=== PATIENT | male | born 1935 ===

== ENCOUNTER 2017-02-09 17:49 | Inpatient (IN) | payer MEDICARE, MEDICAID ==
[2017-02-09] MEDS ORDERED: Albuterol-Ipratrop 3 mg / 0.5 (3 ml) UD IH STA ×2 (18:01→18:03)
[2017-02-09] MEDS ORDERED: Sodium Chloride 0.9% 1,000 ML IV STA (18:03)
--- NOTE | 2017-02-09 18:12 | ED PDOC ---
HPI: SOB/CHF/COPD Time Seen by Provider: 02/09/17 17:54 Chief Complaint (Nursing): Respiratory Distress Additional Complaint(s): 82 y/o male with a past medical history of chronic obstructive pulmonary disease and cystic fibrosis who presents to the emergency department with a complaint of increasing shortness of breath x2 days. Associated with a cough and productive thick sputum. Reports using nebulizer with no improvement. Denies fever. PMD: Dr. Chris Aguirre MD Past Medical History Reviewed: Historical Data, Nursing Documentation, Vital Signs Vital Signs: Last Vital Signs Temp 98.2 F 02/09/17 17:54 Pulse 101 H 02/09/17 17:54 Resp 28 H 02/09/17 17:54 BP 131/86 02/09/17 17:54 Pulse Ox 91 L 02/09/17 18:15 - Medical History PMH: COPD Other PMH: cystic fibrosis - Surgical History Surgical History: No Surg Hx - Family History Family History: States: Unknown Family Hx - Allergies Allergies/Adverse Reactions: Allergies Allergy/AdvReac Type Severity Reaction Status Date / Time No Known Allergies Allergy Verified 02/09/17 17:57 Review of Systems ROS Statement: Except As Marked, All Systems Reviewed And Found Negative Constitutional: Negative for: Fever Respiratory: Positive for: Cough, Shortness of Breath, Sputum (Productive and thick) Physical Exam - Reviewed Nursing Documentation Reviewed: Yes Vital Signs Reviewed: Yes - Physical Exam Appears: Positive for: Non-toxic, No Acute Distress Head Exam: Positive for: ATRAUMATIC, NORMAL INSPECTION, NORMOCEPHALIC Skin: Positive for: Normal Color, Warm, Dry Neck: Positive for: Normal, Supple Cardiovascular/Chest: Positive for: Tachycardia (Regular rhythm). Negative for : Regular Rate, Rhythm, Murmur Respiratory: Positive for: Decreased Breath Sounds (With expiratory wheezing and rhonchi bilaterally), Rhonchi, Wheezing, Respiratory Distress (Mild). Negative for: Normal Breath Sounds, Accessory Muscle Use Gastrointestinal/Abdominal: Positive for: Normal Exam, Soft. Negative for: Tenderness Extremity: Positive for: Normal ROM. Negative for: Pedal Edema, Calf Tenderness Neurologic/Psych: Positive for: Alert, Oriented - Laboratory Results Result Diagrams: 02/09/17 18:06 - ECG O2 Sat by Pulse Oximetry: 91 (RA) Pulse Ox Interpretation: Normal Medical Decision Making Medical Decision Making: Time: 18:01 Initial impression: Shortness of breath Initial plan: --EKG --ABG Shock Panel --COMP Metabolic Panel --Urine DIP --CBC w/ diff --Chest Portable (RAD) --Duoneb 3 ml IH --Duoneb 3 ml IH --Methylprednisolone 125 mg IVP --Sodium Chloride 1,000 IV 100 mls/hr --Vapotherm --Peak Flow Pre/Post TX --Peak Flow Pre/Post TX --Reevaluation Scribe Attestation: Documented by Adela Sullivan, acting as a scribe for Cooper Finley MD. Provider Scribe Attestation: All medical record entries made by the Scribe were at my direction and personally dictated by me. I have reviewed the chart and agree that the record accurately reflects my personal performance of the history, physical exam, medical decision making, and the department course for this patient. I have also personally directed, reviewed, and agree with the discharge instructions and disposition. Disposition - Clinical Impression Clinical Impression: Acute bronchitis with chronic obstructive pulmonary disease (COPD) - Patient ED Disposition Is Patient to be Admitted: Yes - Disposition Disposition Time: 18:35 Condition: FAIR - Pt Status Changed To: Hospital Disposition Of: Inpatient - Admit Certification Admit to Inpatient:: After my assessment, the patient will require hospitalization for at least two midnights. This is because of the severity of symptoms shown, intensity of services needed, and/or the medical risk in this patient being treated as an outpatient. - POA Present On Arrival: None
[2017-02-09 18:29] LABS: BASO # 0.1 K/uL (0.0-0.2); BASO % 0.6 % (0.0-2.0); EOS # 1.8 K/uL (0.0-0.7); EOS % 7.2 % (0.0-4.0); HEMOGLOBIN 10.9 g/dL (12.0-18.0); MEAN CELL VOLUME 86.1 fl (80.0-94.0); MEAN CORPUSCULAR HEMOGLOBIN 27.1 pg (27.0-31.0); MEAN CORPUSCULAR HGB CONC 31.4 g/dL (33.0-37.0); MEAN PLATELET VOLUME 8.3 fl (7.2-11.7); MONO # 1.3 K/uL (0.0-0.8); MONO % 5.1 % (0.0-10.0); NEUT # 21.2 K/uL (1.8-7.0); NEUT % 83.1 % (50.0-75.0); PLATELET COUNT 333 K/uL (130-400); RBC 4.04 Mil/uL (4.40-5.90); RED CELL DISTRIBUTION WIDTH 18.4 % (11.5-14.5); WHITE BLOOD COUNT 25.6 K/uL (4.8-10.8)
[2017-02-09] MEDS ORDERED: Azithromycin 500 MG in Sodium Chloride 0.9% 250 ML IVPB STA (18:33)
[2017-02-09 18:36] LABS: ABG ALLEN TEST YES; ARTERIAL BLOOD GAS HCO3 22.6 mmol/L (21-28); ARTERIAL BLOOD GAS O2 SAT 99.1 % (95-98); ARTERIAL BLOOD GAS PCO2 34 mm/Hg (35-45); ARTERIAL BLOOD GAS PO2 135 mm/Hg (80-100); ARTERIAL BLOOD GAS TCO2 22.1 mmol/L (22-28)
[2017-02-09] MEDS ORDERED: Piperacillin/Tazobact 3.375 GM in Sodium Chloride 0.9% 100 ML IVPB ONE (18:48)
[2017-02-09] MEDS ORDERED: Vancomycin 1 g Inj ONE (18:50)
[2017-02-09 18:53] LABS: ANISOCYTOSIS SLIGHT; BANDS 1 % (0-2); BASOPHIL 1 % (0-2); EOSINOPHIL 7 % (0-7); LARGE PLATELETS PRESENT; LYMPHOCYTE 6 % (20-50); METAMYELOCYTE 1 % (0-0); MONOCYTE 4 % (0-10); NEUTROPHIL 80 % (42-75); PLATELET ESTIMATE NORMAL (NORMAL); POIKILOCYTOSIS SLIGHT; TOTAL CELLS COUNTED 100
[2017-02-09 19:51] LABS: ALB/GLOB RATIO 1.2 (1.0-2.1); ALBUMIN 4.2 g/dL (3.5-5.0); ALT/SGPT 24 U/L (21-72); AST/SGOT 19 U/L (17-59); BLOOD UREA NITROGEN 34 mg/dl (9-20); CALCIUM 9.3 mg/dL (8.4-10.2); GFR AFRICAN-AMERICAN > 60; GFR NON-AFRICAN AMERICAN 53
--- NOTE | 2017-02-09 19:53 | CP.PCM.HP ---
<Saúl Walker - Last Filed: 02/10/17 05:46> History of Present Illness - History of Present Illness History of Present Illness: 82 yo yo, m, PMhx/o COPD, CHF, DM, pulmonary fibrosis, Penis Cancer presents to ER c/o SOB on exertion for the last 7 days associated with wheezing. Patient saw Dr Lord the last Friday. Patient was given refill of his medications and advised to use Duoneb 4 times/day and started on Spiriva. Patient reports dry cough on exertion only and today was able to expectorate brown color flegm. He denies fever, nasal congestion, N/V/D, sick contact, abd pain. Patient does not use O2 permanent at home. Patient has been living in [place] for many years and came to [place] to stay with his family here. PMD: Dr. Chris Lord MD Allergies:NKDA Meds: warfarin 1mg daily, Finasteride 500 mg 1 tab daily, spironolactone 25 mg daily, amiodarone 200 mg daily, diltiazen 180 mg daily, Metformin 500 mg BID, Duoneb 4 times/day, montelukast 10 mg daily, furosemide 20 mg daily, Spiriva PSurgHx: penis cancer 4 years ago. PShx: former smoker 1-2 PPD x 40 years. quit 8 years ago, no rect drugs, ETOH abuse, quit 8 years ago ED Course VS: 02 sat 91, HR: 101 LAbs: 25.6>10.9/34.8<333 gluc 244 BUN/cr 34/1.3 K:6.2 ProBNP 5620 Radiology: CXR: right lower lobe infiltrates Meds: Duoneb 3 ml IH --Duoneb 3 ml IH --Methylprednisolone 125 mg IVP --Sodium Chloride 1,000 IV 100 mls/hr --Vapotherm --Peak Flow Pre/Post TX --Peak Flow Pre/Post TX Present on Admission - Present on Admission Any Indicators Present on Admission: No History of DVT/PE: No History of Uncontrolled Diabetes: No Urinary Catheter: No Review of Systems - EENT Eyes: As Per HPI - Cardiovascular Cardiovascular: As Per HPI - Respiratory Respiratory: As Per HPI Past Patient History - Infectious Disease Hx of Infectious Diseases: None - Past Social History Smoking Status: Former Smoker - CARDIAC Hx Atrial Fibrillation: Yes Hx Congestive Heart Failure: Yes Hx Hypertension: Yes - PULMONARY Hx Asthma: Yes Hx Chronic Obstructive Pulmonary Disease (COPD): Yes Hx Emphysema: Yes - NEUROLOGICAL Hx Vertigo: Yes - ENDOCRINE/METABOLIC Hx Diabetes Mellitus Type 2: Yes - GENITOURINARY/GYNECOLOGICAL Other/Comment: penile cancer - PSYCHIATRIC Hx Substance Use: No - ANESTHESIA Hx Anesthesia: Yes Meds Allergies/Adverse Reactions: Allergies Allergy/AdvReac Type Severity Reaction Status Date / Time No Known Allergies Allergy Verified 02/09/17 17:57 Physical Exam - Constitutional Appears: In Acute Distress Additional comments: Acute distress from SOB - Head Exam Head Exam: ATRAUMATIC, NORMOCEPHALIC - Eye Exam Eye Exam: Normal appearance - Respiratory Exam Respiratory Exam: Decreased Breath Sounds, Rales. absent: Rhonchi, Wheezes Additional comments: B/L decrease breath sounds lung bases, scattered rales B/L - Cardiovascular Exam Cardiovascular Exam: REGULAR RHYTHM, +S1, +S2 - GI/Abdominal Exam GI & Abdominal Exam: Normal Bowel Sounds, Soft. absent: Tenderness - Extremities Exam Extremities exam: Positive for: normal inspection. Negative for: pedal edema - Neurological Exam Neurological exam: Alert, Oriented x3 - Psychiatric Exam Psychiatric exam: Normal Affect - Skin Skin Exam: Intact Results - Vital Signs Recent Vital Signs: Last Vital Signs Temp 98.2 F 02/09/17 17:54 Pulse 101 H 02/09/17 17:54 Resp 28 H 02/09/17 17:54 BP 131/86 02/09/17 17:54 Pulse Ox 91 L 02/09/17 18:36 - Labs Result Diagrams: 02/09/17 18:06 02/09/17 21:43 Labs: Laboratory Results - last 24 hr 02/09/17 18:47 NT-Pro-B Natriuret Pep 5620 H Assessment & Plan - Assessment and Plan (Free Text) Plan: Assessment/Plan 82 yo yo, m, PMhx/o COPD, CHF, DM, pulmonary fibrosis, Penis Cancer presents to ER c/o SOB on exertion for the last 7 days associated with wheezing. 1) Respiratory distress secondary to COPD exacerbation -ABG: on bipap PCO2 34 PO2 135 PH normal -BIPAP -admit telemetry -Duoneb 3 ml Inh Q4h az -Metylprednisone 60 mg IV Q6h az 2) PNA -Ceftriaxone x 1 dose given ER -Azithrromycin x 1 dose given ER -Vanco -Zosyn 3) Acute on CHF -ProBNP 5620 -Furosemide -Spironolactone -Echo 4)DM -Metformin 500 mg BID -Hgba1c 5)DVT prophylaxis SCD <Timothy,Chris A - Last Filed: 02/10/17 06:47> Results - Vital Signs Recent Vital Signs: Last Vital Signs Temp 96.1 F L 02/10/17 05:27 Pulse 108 H 02/10/17 05:27 Resp 18 02/10/17 05:27 BP 103/65 02/10/17 05:27 Pulse Ox 100 02/10/17 05:27 - Labs Result Diagrams: 02/09/17 18:06 02/09/17 21:43 Labs: Laboratory Results - last 24 hr 02/09/17 02/09/17 02/10/17 18:47 21:43 04:13 Sodium 133 Potassium 5.9 H Chloride 104 Carbon Dioxide 20 L Anion Gap 15 BUN 35 H Creatinine 1.3 Est GFR ( Amer) > 60 Est GFR (Non-Af Amer) 53 POC Glucose (mg/dL) 281 H Random Glucose 210 H Calcium 8.8 NT-Pro-B Natriuret Pep 5620 H Attending/Attestation - Attestation I have personally seen and examined this patient.: Yes I have fully participated in the care of the patient.: Yes I have reviewed all pertinent clinical information: Yes
[2017-02-09] MEDS ORDERED: Piperacillin/Tazobact 3.375 gm Inj IVPB ONE (20:24)
[2017-02-09] MEDS ORDERED: Albuterol-Ipratrop 3 mg / 0.5 (3 ml) UD INH PRN (20:41)
[2017-02-09] MEDS ORDERED: Sod Polystyrene Sulf 15 gm/60 ml Oral Susp PO ONE (21:22)
[2017-02-09] MEDS ORDERED: methylPREDNISolone 40 MG in Sodium Chloride 0.9% 50 ML IVPB SCH (22:00)
[2017-02-09] MEDS ORDERED: Sod Polystyrene Sulf 15 gm/60 ml Oral Susp ONE (22:14)
[2017-02-09] MEDS ORDERED: MethylPREDNISolone 40 mg Vial ONE (22:14)
[2017-02-09] MEDS: methylPREDNISolone 60 MG in Sodium Chloride 0.9% 50 ML IVPB SCH (22:16)
[2017-02-09 22:21] LABS: BLOOD UREA NITROGEN 35 mg/dl (9-20); GFR AFRICAN-AMERICAN > 60; GFR NON-AFRICAN AMERICAN 53
[2017-02-09 22:22] LABS: CALCIUM 8.8 mg/dL (8.4-10.2)
[2017-02-09] MEDS: Piperacill/Tazo 3.375gm in Dex 3.375 GM/50 ML BAG IVPB SCH (23:51)
[2017-02-10] MEDS: Piperacill/Tazo 3.375gm in Dex 3.375 GM/50 ML BAG IVPB SCH ×4 (03:56→21:21)
[2017-02-10] MEDS: methylPREDNISolone 60 MG in Sodium Chloride 0.9% 50 ML IVPB SCH ×4 (03:56→21:21)
[2017-02-10 04:24] VITALS: BMI 19.4
[2017-02-10] MEDS: Albuterol-Ipratrop 3 mg / 0.5 (3 ml) UD INH SCH ×5 (05:23→19:49)
[2017-02-10 06:58] LABS: MEAN CELL VOLUME 85.3 fl (80.0-94.0); MEAN CORPUSCULAR HEMOGLOBIN 27.4 pg (27.0-31.0); MEAN CORPUSCULAR HGB CONC 32.1 g/dL (33.0-37.0); RBC 3.66 Mil/uL (4.40-5.90); RED CELL DISTRIBUTION WIDTH 18.6 % (11.5-14.5); WHITE BLOOD COUNT 11.3 K/uL (4.8-10.8)
[2017-02-10 07:18] LABS: ALB/GLOB RATIO 1.1 (1.0-2.1); ALBUMIN 3.5 g/dL (3.5-5.0); ALT/SGPT 28 U/L (21-72); AST/SGOT 20 U/L (17-59); BLOOD UREA NITROGEN 34 mg/dl (9-20); CALCIUM 8.8 mg/dL (8.4-10.2); GFR AFRICAN-AMERICAN > 60; GFR NON-AFRICAN AMERICAN > 60; HDL CHOLESTEROL 35 MG/DL (30-70)
[2017-02-10 07:29] LABS: LDL CHOLESTEROL 76 mg/dL (0-129)
[2017-02-10 07:34] LABS: INR 2.1 (0.9-1.2); PARTIAL THROMBOPLASTIN TIME 40.5 Seconds (25.6-37.1); PROTHROMBIN TIME 24.5 Seconds (9.8-13.1)
--- NOTE | 2017-02-10 07:55 | PQF GENQUE ---
This form is a permanent part of the medical record 02/10/17 Dr. Aguirre, Please clarify the type of atrial fibrillation: Documentation of a history of Atrial Fibrillation. Medications include: Cardizem and Coumadin at home. Clarification of your documentation is requested to better reflect the severity of illness and intensity of treatment of your patient. Indicators present [] Specify: [] [] Specify: [] [] Specify: [] [] Specify: [] Location in the medical record that reflects the above clinical findings: [] Treatment Provided: [] PHYSICIAN'S RESPONSE Please clarify the type of atrial fibrillation: [] Chronic [] Paroxysmal [] Permanent [] Persistent [] Other (please specify type) [] Clinically unable to determine [] Unknown Based on your medical judgment of the clinical indicators outlined above please clarify the following: [] Practitioner response [] If unable to determine, please check the box, sign and date. Present On Admission (POA) Indicator: [] Present at the time of admission [] Not present at the time of admission [] Clinically Undetermined In responding to this query, please exercise your independent professional judgment. The fact that a question is asked does not imply that any particular answer is desired or expected. Thank you for your clarification on this documentation. If you have any questions please call: ext [phone] * Thank you, Irene Garrett RN CDMP [facility]
--- NOTE | 2017-02-10 07:59 | PQF CHF ---
This form is a permanent part of the medical record 02/10/17 Dr. kOeefe, After workup please clarify the acuity and type of CHF under the physician response section or in your progress notes. Echo pending. Documentation of a history of CHF: Medications include: Lasix and Aldactone. Echo pending. Clarification of your documentation is requested to better reflect the severity of illness and intensity of treatment of your patient. Indicators present [x] Diagnosis of CHF and/or history of CHF [x] BNP > 200: results 5620 [] Imaging Finding of Pulmonary Edema /Pleural Effusions [] Fluid/Volume Overload [] Pitting edema [] Ejection Fraction < 40% (Indicative of Systolic Heart Failure) [] Ejection Fraction > 40% (Indicative of Diastolic Heart Failure) [] Dyspnea / Orthopenea / Paroxysmal Nocturnal Dyspnea [] Other: Location in the medical record that reflects the above clinical findings: [] Treatment Provided: [] PHYSICIAN'S RESPONSE Based on your medical judgment of the clinical indicators outlined above, are you treating this patient for a known or suspected: [] Acute CHF [] Systolic [] Diastolic [] Combined [] Chronic CHF [] Systolic [] Diastolic [] Combined [] Acute on Chronic CHF []Systolic [] Diastolic [] Combined [] CHF due hypertension [] Acute systolic []Chronic systolic [] Acute/ chronic systolic [] Other, please indicate: [] [] If Unable to Determine, please check the box, sign and date. Present On Admission (POA) Indicator: [] Present at the time of admission [] Not present at the time of admission [] Clinically Undetermined In responding to this query, please exercise your independent professional judgment. The fact that a question is asked does not imply that any particular answer is desired or expected. Thank you for your clarification on this documentation. If you have any questions please call:[ ] * Thank you, [ ] processing archivist SON
[2017-02-10] MEDS ORDERED: Glucagon Recombinant 1 mg Inj IM PRN (08:54)
[2017-02-10] MEDS ORDERED: Dextrose 50% SYRINGE Inj (50 ml) IV PRN (08:54)
[2017-02-10] MEDS: Tiotropium 18 mcg Cap For Inhalation INH SCH ×3 (09:00→19:24)
[2017-02-10] MEDS ORDERED: diltiaZEM 180 mg/24 Hours CD Cap PO SCH (09:00)
[2017-02-10] MEDS: Pantoprazole 40 mg EC Tab PO SCH (09:28)
--- NOTE | 2017-02-10 10:18 | CP.PCM.CON ---
History of Present Illness - History of Present Illness History of Present Illness: This 82-year-old man with a history of severe COPD due to chronic cigarette use and a history of congestive cardiac failure for more than 10 years was brought to the emergency room because of worsening dyspnea on exertion. At this point the patient is mildly dyspneic even while lying in bed particularly he cannot ambulate from his bed to his bathroom without getting extremely short of breath. The patient has had a coronary angiogram more than 5-6 years back and was told of having an occluded blood vessel. No intervention was carried out. He has been taking an oral anticoagulate because of cardiac arrhythmia and was also given amiodarone for a cardiac arrhythmia. He has been repeatedly hospitalized over last 2 months and the family was told that his blood sugar is abnormal because of medications used during this time. He has a history of chronic alcohol use which he quit more than 4 years back. He has quit smoking more than 8 years back. The patient has had a productive cough with copious purulent expectorate for last week to week and a half. His family also relates a significant weight loss over last 3-4 months. Physical examination shows an elderly man who is obviously dyspneic even at rest in spite of oxygen supplement. His respirator rate was 20 to 22 breaths per minute. His heart rate was 110 bpm and regular. His blood pressure was 114/ 70 mmHg. His jugular venous pressure was elevated up to angle of jaw. There was no pedal or sacral edema. His extremities were warm his nailbeds were pink there was no central or peripheral cyanosis. There was no clubbing. There was no lymphadenopathy. His chest was emphysematous. [place] was not palpable. The first and second heart sounds were normal. There was no S3 gallop. Inspiratory effort was poor and the air exchange was poor. Expiration was prolonged. A few scattered rales are audible at both bases. Abdomen was soft liver and spleen are not palpable. His electrocardiogram showed atrial flutter with 2 to one conduction. There were QS complexes in leads V1, V2 and V3 suggestive of an old anteroseptal wall myocardial infarction. His lab data show a hemoglobin of 10 g with a mild degree of leukocytosis. He had a normocytic normochromic picture. His arterial blood gases on an FiO2 of 40 % showed PCO2 of 34 mmHg with a normal pH of 7.4 indicating mild hyperventilation. His potassium level at admission was 5.9 mEq per liter and following Kayexalate today it is 4.8 mg/L. His GFR was more than 60 mL per minute. His INR was 2.1. His proBNP was 5620 pg per mL. IMPRESSION: Congestive cardiac failure with possible anteroseptal wall myocardial infarction in the past. Atrial flutter with 2 to one conduction. 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 The patient displays presence of atrial flutter in spite of using amiodarone hence it is apparent that this medication is a failure, plus has the potential to cause severe pulmonary toxicity. Hence, I have discontinued it. The patient will undergo an echocardiogram to evaluate his left ventricular systolic function. He is adequately anticoagulated and needs to continue oral anticoagulation. I will discuss the possibility of using novel oral anticoagulants. The patient should undergo spirometry to evaluate for possible restrictive lung disease as well given the fact that he has been exposed to amiodarone for a long time. Past Patient History - Infectious Disease Hx of Infectious Diseases: None - Past Medical History & Family History Past Medical History?: Yes - Past Social History Smoking Status: Former Smoker - CARDIAC Hx Atrial Fibrillation: Yes Hx Congestive Heart Failure: Yes Hx Hypertension: Yes - PULMONARY Hx Asthma: Yes Hx Chronic Obstructive Pulmonary Disease (COPD): Yes Hx Emphysema: Yes - NEUROLOGICAL Hx Vertigo: Yes - HEENT Hx HEENT Problems: No Other/Comment: Dentures - RENAL Hx Chronic Kidney Disease: No - ENDOCRINE/METABOLIC Hx Diabetes Mellitus Type 2: Yes - HEMATOLOGICAL/ONCOLOGICAL Hx Blood Disorders: No Hx AIDS: No Hx Human Immunodeficiency Virus (HIV): No - INTEGUMENTARY Hx Dermatological Problems: No - MUSCULOSKELETAL/RHEUMATOLOGICAL Hx Musculoskeletal Disorders: No Hx Falls: No - GASTROINTESTINAL Hx Gastrointestinal Disorders: No - GENITOURINARY/GYNECOLOGICAL Other/Comment: penile cancer - PSYCHIATRIC Hx Substance Use: No - SURGICAL HISTORY Hx Surgeries: Yes Other/Comment: Penile surg from [place] - ANESTHESIA Hx Anesthesia: Yes Meds Allergies/Adverse Reactions: Allergies Allergy/AdvReac Type Severity Reaction Status Date / Time No Known Allergies Allergy Verified 02/09/17 17:57 - Medications Medications: Current Medications Albuterol/Ipratropium (Duoneb 3 Mg/0.5 Mg (3 Ml) Ud) 3 ml INH RQ4 [facility] Last Admin: 02/10/17 07:48 Dose: 3 ml Dextrose (Dextrose 50% Inj) 0 ml IV STAT PRN; Protocol PRN Reason: Hyglycemia Protocol Dextrose (Glutose 15) 0 gm PO ONCE PRN; Protocol PRN Reason: Hypoglycemia Protocol Finasteride (Proscar) 5 mg PO DAILY [facility] Last Admin: 02/10/17 09:29 Dose: 5 mg Furosemide (Lasix) 40 mg IVP DAILY [facility] Glucagon (Glucagen Diagnostic Kit) 0 mg IM STAT PRN; Protocol PRN Reason: Hypoglycemia Protocol Methylprednisolone 60 mg/ (Sodium Chloride) 50 mls @ 100 mls/hr IVPB Q6 [facility] Stop: 02/10/17 16:29 Last Admin: 02/10/17 09:30 Dose: 100 mls/hr Vancomycin HCl 1 gm/ Sodium (Chloride) 250 mls @ 166.667 mls/hr IVPB Q12 [facility] Last Admin: 02/09/17 23:50 Dose: Not Given Piperacillin Sod/Tazobactam Sod (Zosyn 3.375 Gm Iv Premix) 3.375 gm in 50 mls @ 50 mls/hr IVPB Q6 [facility] Last Admin: 02/10/17 09:30 Dose: 50 mls/hr Insulin Human Regular (Humulin R) 0 units SC ACHS [facility] PRN Reason: Protocol Metformin HCl (Glucophage) 500 mg PO BID [facility] Last Admin: 02/10/17 09:28 Dose: 500 mg Montelukast Sodium (Singulair) 10 mg PO DAILY [facility] Last Admin: 02/10/17 09:29 Dose: 10 mg Pantoprazole Sodium (Protonix Ec Tab) 40 mg PO DAILY [facility] Last Admin: 02/10/17 09:28 Dose: 40 mg Spironolactone (Aldactone) 25 mg PO DAILY [facility] Last Admin: 02/10/17 09:28 Dose: 25 mg Tiotropium [place] (Spiriva) 1,000 mcg INH TID [facility] Warfarin Sodium (Coumadin) 1 mg PO DAILY [facility] PRN Reason: Protocol Results - Vital Signs Recent Vital Signs: Last Vital Signs Temp 97.5 F L 02/10/17 08:00 Pulse 110 H 02/10/17 09:29 Resp 18 02/10/17 08:00 BP 102/63 02/10/17 09:29 Pulse Ox 97 02/10/17 08:00 - Labs Result Diagrams: 02/10/17 06:00 02/10/17 06:00 Labs: Laboratory Results - last 24 hr 02/09/17 02/09/17 02/10/17 18:47 21:43 04:13 WBC RBC Hgb Hct MCV MCH MCHC RDW Plt Count PT INR APTT Sodium 133 Potassium 5.9 H Chloride 104 Carbon Dioxide 20 L Anion Gap 15 BUN 35 H Creatinine 1.3 Est GFR ( Amer) > 60 Est GFR (Non-Af Amer) 53 POC Glucose (mg/dL) 281 H Random Glucose 210 H Calcium 8.8 Total Bilirubin AST ALT Alkaline Phosphatase NT-Pro-B Natriuret Pep 5620 H Total Protein Albumin Globulin Albumin/Globulin Ratio Triglycerides Cholesterol LDL Cholesterol Direct HDL Cholesterol 02/10/17 02/10/17 02/10/17 06:00 06:00 06:00 WBC 11.3 H D RBC 3.66 L Hgb 10.0 L Hct 31.2 L MCV 85.3 MCH 27.4 MCHC 32.1 L RDW 18.6 H Plt Count 260 PT 24.5 H INR 2.1 H APTT 40.5 H Sodium 138 Potassium 4.8 Chloride 105 Carbon Dioxide 22 Anion Gap 16 BUN 34 H Creatinine 1.1 Est GFR ( Amer) > 60 Est GFR (Non-Af Amer) > 60 POC Glucose (mg/dL) Random Glucose 275 H Calcium 8.8 Total Bilirubin 0.6 AST 20 ALT 28 Alkaline Phosphatase 80 NT-Pro-B Natriuret Pep Total Protein 6.6 Albumin 3.5 Globulin 3.1 Albumin/Globulin Ratio 1.1 Triglycerides 62 Cholesterol 137 LDL Cholesterol Direct 76 HDL Cholesterol 35
--- NOTE | 2017-02-10 11:09 | RAD ---
HISTORY: cough COMPARISON: No prior. FINDINGS: LUNGS: No active pulmonary disease. PLEURA: No significant pleural effusion identified, no pneumothorax apparent. CARDIOVASCULAR: Normal. OSSEOUS STRUCTURES: No significant abnormalities. VISUALIZED UPPER ABDOMEN: Normal. OTHER FINDINGS: None. IMPRESSION: Suspected right basilar pneumonia.
[2017-02-10] MEDS: Insulin Regular 100 units/ml SC SCH ×2 (12:22→16:48)
--- NOTE | 2017-02-10 12:52 | CP.PCM.PN ---
<Zhanna Oneil - Last Filed: 02/10/17 18:03> Subjective - Date & Time of Evaluation Date of Evaluation: 02/10/17 Time of Evaluation: 07:15 - Subjective Subjective: Patient seen and examined at bedside. No acute events overnight. Grandaughter at bedside as well. Patient reports he is experiencing increased sputum production, his SOB persist with patient taking breaks to breath after every few words, but has mildly improved. Tolerating PO diet, normal urine and stool output. Denies fevers, chills. Objective - Vital Signs/Intake and Output Vital Signs (last 24 hours): Temp Pulse Resp BP Pulse Ox 98.3 F 113 H 20 112/70 94 L 02/10/17 12:09 02/10/17 12:09 02/10/17 12:09 02/10/17 12:23 02/10/17 12:09 - Medications Medications: Current Medications Albuterol/Ipratropium (Duoneb 3 Mg/0.5 Mg (3 Ml) Ud) 3 ml INH RQ4 [place] Last Admin: 02/10/17 11:15 Dose: 3 ml Dextrose (Dextrose 50% Inj) 0 ml IV STAT PRN; Protocol PRN Reason: Hyglycemia Protocol Dextrose (Glutose 15) 0 gm PO ONCE PRN; Protocol PRN Reason: Hypoglycemia Protocol Finasteride (Proscar) 5 mg PO DAILY [place] Last Admin: 02/10/17 09:29 Dose: 5 mg Furosemide (Lasix) 40 mg IVP DAILY [place] Last Admin: 02/10/17 12:23 Dose: 40 mg Glucagon (Glucagen Diagnostic Kit) 0 mg IM STAT PRN; Protocol PRN Reason: Hypoglycemia Protocol Methylprednisolone 60 mg/ (Sodium Chloride) 50 mls @ 100 mls/hr IVPB Q6 [place] Stop: 02/10/17 16:29 Last Admin: 02/10/17 09:30 Dose: 100 mls/hr Vancomycin HCl 1 gm/ Sodium (Chloride) 250 mls @ 166.667 mls/hr IVPB Q12 [place] Last Admin: 02/10/17 11:37 Dose: 166.667 mls/hr Piperacillin Sod/Tazobactam Sod (Zosyn 3.375 Gm Iv Premix) 3.375 gm in 50 mls @ 50 mls/hr IVPB Q6 [place] Last Admin: 02/10/17 09:30 Dose: 50 mls/hr Insulin Human Regular (Humulin R) 0 units SC ACHS [facility] PRN Reason: Protocol Last Admin: 02/10/17 12:22 Dose: 5 units Metformin HCl (Glucophage) 500 mg PO BID [facility] Last Admin: 02/10/17 09:28 Dose: 500 mg Montelukast Sodium (Singulair) 10 mg PO DAILY [facility] Last Admin: 02/10/17 09:29 Dose: 10 mg Pantoprazole Sodium (Protonix Ec Tab) 40 mg PO DAILY [facility] Last Admin: 02/10/17 09:28 Dose: 40 mg Spironolactone (Aldactone) 25 mg PO DAILY [facility] Last Admin: 02/10/17 09:28 Dose: 25 mg Tiotropium [place] (Spiriva) 1,000 mcg INH TID [facility] Warfarin Sodium (Coumadin) 1 mg PO DAILY [facility] PRN Reason: Protocol Stop: 02/10/17 17:01 - Labs Labs: 02/10/17 06:00 02/10/17 06:00 PT 24.5 Seconds (9.8-13.1) H 02/10/17 06:00 INR 2.1 (0.9-1.2) H 02/10/17 06:00 APTT 40.5 Seconds (25.6-37.1) H 02/10/17 06:00 - Constitutional Appears: Older Than Stated Age, Cachectic, Other (SOB) - Head Exam Head Exam: ATRAUMATIC, NORMOCEPHALIC - Eye Exam Eye Exam: EOMI, PERRL - Neck Exam Neck Exam: Full ROM (JVD) - Respiratory Exam Respiratory Exam: Decreased Breath Sounds, Rales (in bilateral lower lobes ), Respiratory Distress (mild) Additional comments: barrel chest - Cardiovascular Exam Cardiovascular Exam: REGULAR RHYTHM, +S1, +S2 - GI/Abdominal Exam GI & Abdominal Exam: Soft, Normal Bowel Sounds. absent: Distended, Tenderness - Extremities Exam Extremities Exam: Full ROM. absent: Calf Tenderness, Pedal Edema - Back Exam Back Exam: absent: CVA tenderness (L), CVA tenderness (R) - Neurological Exam Neurological Exam: Alert, Awake, CN II-XII Intact, Oriented x3 - Psychiatric Exam Psychiatric exam: Normal Affect, Normal Mood - Skin Skin Exam: Dry, Intact, Warm Assessment and Plan - Assessment and Plan (Free Text) Assessment: 82 yr old M admitted for worsening SOB on exertion x 7days and found to have COPD exacerbation. Patient has PMHx of Atrial Fibrillation, COPD, CHF (type unknown), NIDDM, pulmonary fibrosis, Penile cancer, former Etoh abuse (quit 4 yrs ago), former smoker (30 pack years, quit 8 yrs ago). Patients' SOB persists , has increased sputum production, and is tachycardic. Cardiology and Pulmonology have been consulted and are appreciated. Echocardiogram results pending. Day 2 of IV antibiotics. COPD Exacerbation -acute, symptoms persists: SOB/increased sputum production -Duoneb 3 ml Inh Q6h az -Methylprednisolone 60 mg IV Q6H [place] -continue home meds: Singulair 10mg PO QD, Spiriva 18 mcg INH TID, -Supplemental O2 via nasal cannula to maintain O2 sat between 88-92%, BIPAP PRN for O2 sat < 88% -PFT's tomorrow Community Acquired Pneumonia -acute, leukocytosis 25.6>11.3 with left shift -CXR: suspected right basilar pneumonia - Vancomycin 1gm IV QD and Zosyn 3.375gm IV Q6 (Day 2) -f/u sputum culture Congestive Heart Failure -unknown type, chronic, ProBNP 5620 -continue home meds: Furosemide 40mg IV QD, Spironolactone 25mg PO QD -Cardiology consult appreciated-Dr. Godfrey: d/c Amiodarone (see note) -f/u Echocardiogram Atrial Fibrillation -stable, chronic -EKG showed Atrial flutter with 2:1 conduction -Cardiology consult appreciated-Dr. Godfrey: d/c Amiodarone (see note) -INR therapeutic 2.0 -continue home med Diltiazem 180mg PO QD, Warfarin 1 mg PO QD NIDDM -uncontrolled, chronic, HbA1c 8.4 -continue home med: Metformin 500 mg PO BID -Regular Human Insulin SC ACHS low dose protocol -hypoglycemia protocol -lipid panel triglyc 62/ chol 137/ LDL 76/ HDL 35 -will consider standing insulin dose Anemia of Chronic Disease -stable, chronic, likely secondary to COPD and Heart Failure -H/H: 10.0/31.2 MCV 85.3 RDW 18.6 -f/u Iron, TIBC, transferrin, ferritin, C-reactive protein, ESR DVT/GI prophylaxis -SCD's for now, as patient is anticoagulated with Warfarin -Protonix 40mg PO QD <Sonny Aguirrejoseph García - Last Filed: 02/12/17 06:52> Objective - Vital Signs/Intake and Output Vital Signs (last 24 hours): Temp Pulse Resp BP Pulse Ox 97.6 F 126 H 20 117/75 96 02/12/17 05:00 02/12/17 05:00 02/12/17 05:00 02/12/17 05:00 02/12/17 05:00 Intake and Output: 02/11/17 02/12/17 18:59 06:59 Intake Total 1190 Output Total 1240 Balance -50 - Medications Medications: Current Medications Albuterol/Ipratropium (Duoneb 3 Mg/0.5 Mg (3 Ml) Ud) 3 ml INH RQ6 [place] Last Admin: 02/11/17 19:23 Dose: 3 ml Dextrose (Dextrose 50% Inj) 0 ml IV STAT PRN; Protocol PRN Reason: Hyglycemia Protocol Dextrose (Glutose 15) 0 gm PO ONCE PRN; Protocol PRN Reason: Hypoglycemia Protocol Digoxin (Lanoxin) 0.125 mg PO DAILY [facility] Last Admin: 02/11/17 11:33 Dose: 0.125 mg Finasteride (Proscar) 5 mg PO DAILY [place] Last Admin: 02/11/17 09:39 Dose: 5 mg Furosemide (Lasix) 40 mg IVP DAILY [place] Last Admin: 02/11/17 09:13 Dose: 40 mg Glucagon (Glucagen Diagnostic Kit) 0 mg IM STAT PRN; Protocol PRN Reason: Hypoglycemia Protocol Guaifenesin/Dextromethorphan (Robitussin Dm) 10 ml PO Q6 PRN PRN Reason: Cough Last Admin: 02/11/17 19:43 Dose: 10 ml Vancomycin HCl 1 gm/ Sodium (Chloride) 250 mls @ 166.667 mls/hr IVPB Q12 [place] Last Admin: 02/11/17 21:20 Dose: 166.667 mls/hr Piperacillin Sod/Tazobactam Sod (Zosyn 3.375 Gm Iv Premix) 3.375 gm in 50 mls @ 50 mls/hr IVPB Q6 [place] Last Admin: 02/12/17 04:08 Dose: 50 mls/hr Methylprednisolone 60 mg/ (Sodium Chloride) 50 mls @ 100 mls/hr IVPB Q6 [facility] Last Admin: 02/12/17 03:32 Dose: 100 mls/hr Insulin Detemir (Levemir) 8 units SC HS [facility] Last Admin: 02/11/17 23:10 Dose: 8 units Insulin Human Regular (Humulin R) 0 units SC TIDAC [facility] PRN Reason: Protocol Last Admin: 02/11/17 16:28 Dose: 2 units Metformin HCl (Glucophage) 500 mg PO BID [facility] Last Admin: 02/11/17 16:26 Dose: 500 mg Montelukast Sodium (Singulair) 10 mg PO DAILY [facility] Last Admin: 02/11/17 09:12 Dose: 10 mg Pantoprazole Sodium (Protonix Ec Tab) 40 mg PO DAILY [facility] Last Admin: 02/11/17 09:12 Dose: 40 mg Spironolactone (Aldactone) 25 mg PO DAILY [facility] Last Admin: 02/11/17 09:12 Dose: 25 mg Tiotropium [place] (Spiriva) 18 mcg INH TID [facility] Last Admin: 02/11/17 16:26 Dose: 18 mcg - Labs Labs: 02/10/17 06:00 02/10/17 06:00 PT 29.4 Seconds (9.8-13.1) H 02/11/17 09:10 INR 2.6 (0.9-1.2) H D 02/11/17 09:10 APTT 40.5 Seconds (25.6-37.1) H 02/10/17 06:00 Attending/Attestation - Attestation I have personally seen and examined this patient.: Yes I have fully participated in the care of the patient.: Yes I have reviewed all pertinent clinical information, including history, physical exam and plan: Yes
[2017-02-10] MEDS ORDERED: Sodium Chloride 3% for Inhalation 4 ML VIAL.NEB IH PRN (19:32)
--- NOTE | 2017-02-10 19:34 | CARD ---
APPROVED REPORT EXAM: Two-dimensional and M-mode echocardiogram with Doppler and color Doppler. Other Information Quality : GoodRhythm : Tachycardia INDICATION Congestive Heart Failure 2D DIMENSIONS IVSd0.68 (0.7-1.1cm)LVDd5.38 (3.9-5.9cm) LVOT Diameter1.89 (1.8-2.4cm)PWd0.92 (0.7-1.1cm) IVSs0.82 (0.8-1.2cm)LVDs4.69 (2.5-4.0cm) FS (%) 12.7 %PWs0.89 (0.8-1.2cm) M-Mode DIMENSIONS Left Atrium (MM)3.64 (2.5-4.0cm)IVSd0.40 (0.7-1.1cm) Aortic Root3.04 (2.2-3.7cm)LVDd7.97 (4.0-5.6cm) PWd0.96 (0.7-1.1cm)IVSs0.76 cm FS (%) 15 %LVDs6.75 (2.0-3.8cm) PWs0.76 cm Mitral Valve E/A ratio0.0 TDI E/Lateral E'0.0E/Medial E'0.0 Tricuspid Valve TR Peak [id number] [id number] Peak Gr.43mmHg [id number] LEFT VENTRICLE The Left Ventricle is borderline dilated. There is normal left ventricular wall thickness. The systolic function is severely impaired. The Ejection Fraction is 20-25%. Septal akinesis Transmitral Doppler flow pattern is Grade I-abnormal relaxation pattern. RIGHT VENTRICLE The right ventricle is normal size. There is normal right ventricular wall thickness. Systolic function is mildly reduced. ATRIA The left atrium is mildly dilated. The right atrium is mildly dilated. AORTIC VALVE The aortic valve is not well visualized. No aortic regurgitation is present. There is no aortic valvular stenosis. MITRAL VALVE The mitral valve is mildly thickened. There is no mitral valve stenosis. Mitral regurgitation is moderate to severe. TRICUSPID VALVE The tricuspid valve is normal in structure There is moderate tricuspid regurgitation. There is moderate pulmonary hypertension. PULMONIC VALVE The pulmonary valve is normal in structure and function. There is no pulmonic valvular regurgitation. GREAT VESSELS The aortic root is normal in size. The IVC collapses <50% with inspiration. PERICARDIAL EFFUSION The pericardium appears normal. <Conclusion> The Left Ventricle is borderline dilated. There is normal left ventricular wall thickness. The systolic function is severely impaired. The Ejection Fraction is 20-25%. Septal akinesis Transmitral Doppler flow pattern is Grade I-abnormal relaxation pattern. Mitral regurgitation is moderate to severe. There is moderate tricuspid regurgitation. There is moderate pulmonary hypertension.
--- NOTE | 2017-02-10 23:35 | CARD ---
APPROVED REPORT EKG Measurement Heart [id number] ID [id number] <Conclusion> Consider atrial tachycardia with 2:1 conduction Anteroseptal infarct, age undetermined Marked ST abnormality, possible inferior subendocardial injury Abnormal ECG
[2017-02-11] MEDS: Insulin Regular 100 units/ml SC SCH ×4 (00:28→16:28)
[2017-02-11 01:12] LABS: SQUAMOUS EPITHIAL < 1 /hpf (0-5); URINE BACTERIA RARE (<OCC); URINE BILIRUBIN NEGATIVE (NEGATIVE); URINE BLOOD SMALL (NEGATIVE); URINE CLARITY SLIGHTY-CLOUDY (Clear); URINE COLOR YELLOW (YELLOW); URINE GLUCOSE (UA) >=500 mg/dL (Normal); URINE HYALINE CAST 0-2 /hpf (0-2); URINE LEUKOCYTE ESTERASE MOD Leu/uL (Negative); URINE NITRATE NEGATIVE (NEGATIVE); URINE PROTEIN NEGATIVE (NEGATIVE); URINE UROBILINOGEN 0.2-1.0 mg/dL (0.2-1.0)
[2017-02-11] MEDS: Albuterol-Ipratrop 3 mg / 0.5 (3 ml) UD INH SCH ×4 (01:16→19:23)
[2017-02-11] MEDS: methylPREDNISolone 60 MG in Sodium Chloride 0.9% 50 ML IVPB SCH ×4 (03:56→23:09)
[2017-02-11] MEDS: Piperacill/Tazo 3.375gm in Dex 3.375 GM/50 ML BAG IVPB SCH ×3 (03:57→16:27)
[2017-02-11 07:22] LABS: IRON 17 ug/dL (49-181)
[2017-02-11 07:32] LABS: % IRON SATURATION 7 % (20-55); TOTAL IRON BINDING CAPACITY 235 ug/dL (250-450)
--- NOTE | 2017-02-11 08:59 | CP.PCM.PN ---
Subjective - Date & Time of Evaluation Date of Evaluation: 02/11/17 Time of Evaluation: 09:45 - Subjective Subjective: Diuresed well Breathes a little better Mild dyspnoea at rest continues Resp rate 20-22 BPM A Flutter with variable A:V conduction with HR 110 BPM BP 100/70 mm Hg JVP still elevated Echo images reviewed Severe LV dysfunction with severe MR Severe Pulm hypertension Labs noted Daily INR ordered CPM to monitor BUN/ Creatinin and electro lytes Discussed with residents Objective - Vital Signs/Intake and Output Vital Signs (last 24 hours): Temp Pulse Resp BP Pulse Ox 97.6 F 119 H 20 99/63 L 96 02/11/17 08:29 02/11/17 08:29 02/11/17 08:29 02/11/17 08:29 02/11/17 08:29 - Medications Medications: Current Medications Albuterol/Ipratropium (Duoneb 3 Mg/0.5 Mg (3 Ml) Ud) 3 ml INH RQ6 [facility] Last Admin: 02/11/17 07:55 Dose: 3 ml Dextrose (Dextrose 50% Inj) 0 ml IV STAT PRN; Protocol PRN Reason: Hyglycemia Protocol Dextrose (Glutose 15) 0 gm PO ONCE PRN; Protocol PRN Reason: Hypoglycemia Protocol Digoxin (Lanoxin) 0.125 mg PO DAILY [facility] Finasteride (Proscar) 5 mg PO DAILY [facility] Last Admin: 02/10/17 09:29 Dose: 5 mg Furosemide (Lasix) 40 mg IVP DAILY [facility] Last Admin: 02/10/17 12:23 Dose: 40 mg Glucagon (Glucagen Diagnostic Kit) 0 mg IM STAT PRN; Protocol PRN Reason: Hypoglycemia Protocol Vancomycin HCl 1 gm/ Sodium (Chloride) 250 mls @ 166.667 mls/hr IVPB Q12 [facility] Last Admin: 02/10/17 21:22 Dose: 166.667 mls/hr Piperacillin Sod/Tazobactam Sod (Zosyn 3.375 Gm Iv Premix) 3.375 gm in 50 mls @ 50 mls/hr IVPB Q6 [facility] Last Admin: 02/11/17 03:57 Dose: 50 mls/hr Methylprednisolone 60 mg/ (Sodium Chloride) 50 mls @ 100 mls/hr IVPB Q6 [facility] Last Admin: 02/11/17 03:56 Dose: 100 mls/hr Insulin Human Regular (Humulin R) 0 units SC ACHS [facility] PRN Reason: Protocol Last Admin: 02/11/17 06:30 Dose: 5 units Metformin HCl (Glucophage) 500 mg PO BID [facility] Last Admin: 02/10/17 16:47 Dose: 500 mg Montelukast Sodium (Singulair) 10 mg PO DAILY [facility] Last Admin: 02/10/17 09:29 Dose: 10 mg Pantoprazole Sodium (Protonix Ec Tab) 40 mg PO DAILY [facility] Last Admin: 02/10/17 09:28 Dose: 40 mg Spironolactone (Aldactone) 25 mg PO DAILY [facility] Last Admin: 02/10/17 09:28 Dose: 25 mg Tiotropium [place] (Spiriva) 18 mcg INH TID [facility] Last Admin: 02/10/17 19:24 Dose: 18 mcg Warfarin Sodium (Coumadin) 1 mg PO DAILY [facility] PRN Reason: Protocol Stop: 02/11/17 09:01 - Labs Labs: 02/10/17 06:00 02/10/17 06:00 PT 24.5 Seconds (9.8-13.1) H 02/10/17 06:00 INR 2.1 (0.9-1.2) H 02/10/17 06:00 APTT 40.5 Seconds (25.6-37.1) H 02/10/17 06:00
[2017-02-11] MEDS ORDERED: diltiaZEM 180 mg/24 Hours CD Cap PO SCH (09:00)
[2017-02-11] MEDS: Tiotropium 18 mcg Cap For Inhalation INH SCH ×3 (09:12→16:26)
[2017-02-11] MEDS: Pantoprazole 40 mg EC Tab PO SCH (09:12)
--- NOTE | 2017-02-11 09:39 | CP.PCM.CON ---
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 HE APPEARS TO HAVE IMPROVED FOLLOWING DIURESES. 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 Past Patient History - Infectious Disease Hx of Infectious Diseases: None - Past Medical History & Family History Past Medical History?: Yes - Past Social History Smoking Status: Former Smoker - CARDIAC Hx Atrial Fibrillation: Yes Hx Congestive Heart Failure: Yes Hx Hypertension: Yes - PULMONARY Hx Asthma: Yes Hx Chronic Obstructive Pulmonary Disease (COPD): Yes Hx Emphysema: Yes - NEUROLOGICAL Hx Vertigo: Yes - HEENT Hx HEENT Problems: No Other/Comment: Dentures - RENAL Hx Chronic Kidney Disease: No - ENDOCRINE/METABOLIC Hx Diabetes Mellitus Type 2: Yes - HEMATOLOGICAL/ONCOLOGICAL Hx Blood Disorders: No Hx AIDS: No Hx Human Immunodeficiency Virus (HIV): No - INTEGUMENTARY Hx Dermatological Problems: No - MUSCULOSKELETAL/RHEUMATOLOGICAL Hx Musculoskeletal Disorders: No Hx Falls: No - GASTROINTESTINAL Hx Gastrointestinal Disorders: No - GENITOURINARY/GYNECOLOGICAL Other/Comment: penile cancer - PSYCHIATRIC Hx Substance Use: No - SURGICAL HISTORY Hx Surgeries: Yes Other/Comment: Penile surg from [place] - ANESTHESIA Hx Anesthesia: Yes Meds Allergies/Adverse Reactions: Allergies Allergy/AdvReac Type Severity Reaction Status Date / Time No Known Allergies Allergy Verified 02/09/17 17:57 - Medications Medications: Current Medications Albuterol/Ipratropium (Duoneb 3 Mg/0.5 Mg (3 Ml) Ud) 3 ml INH RQ6 [facility] Last Admin: 02/11/17 07:55 Dose: 3 ml Dextrose (Dextrose 50% Inj) 0 ml IV STAT PRN; Protocol PRN Reason: Hyglycemia Protocol Dextrose (Glutose 15) 0 gm PO ONCE PRN; Protocol PRN Reason: Hypoglycemia Protocol Digoxin (Lanoxin) 0.125 mg PO DAILY [facility] Finasteride (Proscar) 5 mg PO DAILY [facility] Last Admin: 02/10/17 09:29 Dose: 5 mg Furosemide (Lasix) 40 mg IVP DAILY [facility] Last Admin: 02/11/17 09:13 Dose: 40 mg Glucagon (Glucagen Diagnostic Kit) 0 mg IM STAT PRN; Protocol PRN Reason: Hypoglycemia Protocol Vancomycin HCl 1 gm/ Sodium (Chloride) 250 mls @ 166.667 mls/hr IVPB Q12 [facility] Last Admin: 02/10/17 21:22 Dose: 166.667 mls/hr Piperacillin Sod/Tazobactam Sod (Zosyn 3.375 Gm Iv Premix) 3.375 gm in 50 mls @ 50 mls/hr IVPB Q6 [facility] Last Admin: 02/11/17 03:57 Dose: 50 mls/hr Methylprednisolone 60 mg/ (Sodium Chloride) 50 mls @ 100 mls/hr IVPB Q6 [facility] Last Admin: 02/11/17 09:14 Dose: 100 mls/hr Insulin Human Regular (Humulin R) 0 units SC ACHS [facility] PRN Reason: Protocol Last Admin: 02/11/17 06:30 Dose: 5 units Metformin HCl (Glucophage) 500 mg PO BID [facility] Last Admin: 02/11/17 09:13 Dose: 500 mg Montelukast Sodium (Singulair) 10 mg PO DAILY [facility] Last Admin: 02/11/17 09:12 Dose: 10 mg Pantoprazole Sodium (Protonix Ec Tab) 40 mg PO DAILY [facility] Last Admin: 02/11/17 09:12 Dose: 40 mg Spironolactone (Aldactone) 25 mg PO DAILY [facility] Last Admin: 02/11/17 09:12 Dose: 25 mg Tiotropium [place] (Spiriva) 18 mcg INH TID [facility] Last Admin: 02/11/17 09:12 Dose: 18 mcg Physical Exam - Constitutional Appears: Chronically Ill - Head Exam Head Exam: ATRAUMATIC, NORMAL INSPECTION, NORMOCEPHALIC - Eye Exam Eye Exam: EOMI, Normal appearance, PERRL Pupil Exam: NORMAL ACCOMODATION, PERRL - ENT Exam ENT Exam: Mucous Membranes Moist, Normal Exam - Neck Exam Neck exam: Positive for: Normal Inspection - Respiratory Exam Respiratory Exam: Decreased Breath Sounds, Prolonged Expiratory Phase, Rales, NORMAL BREATHING PATTERN - Cardiovascular Exam Cardiovascular Exam: Tachycardia - GI/Abdominal Exam GI & Abdominal Exam: Normal Bowel Sounds, Soft. absent: Tenderness - Rectal Exam Rectal Exam: NORMAL INSPECTION - Extremities Exam Extremities exam: Positive for: pedal edema - Back Exam Back exam: NORMAL INSPECTION - Neurological Exam Neurological exam: Alert, CN II-XII Intact, Oriented x3, Reflexes Normal - Psychiatric Exam Psychiatric exam: Normal Affect, Normal Mood - Skin Skin Exam: Dry, Intact, Normal Color, Warm Results - Vital Signs Recent Vital Signs: Last Vital Signs Temp 97.6 F 02/11/17 08:29 Pulse 119 H 02/11/17 08:29 Resp 20 02/11/17 08:29 BP 126/85 02/11/17 09:13 Pulse Ox 96 02/11/17 08:29 - Labs Result Diagrams: 02/10/17 06:00 02/10/17 06:00 Labs: Laboratory Results - last 24 hr 02/10/17 02/10/17 02/10/17 06:00 11:27 16:08 ESR POC Glucose (mg/dL) 368 H 263 H Hemoglobin A1c 8.4 H Iron TIBC % Saturation Ferritin Urine Color Urine Clarity Urine pH Ur Specific [place] Urine Protein Urine Glucose (UA) Urine Ketones Urine Blood Urine Nitrate Urine Bilirubin Urine Urobilinogen Ur Leukocyte Esterase Urine RBC (Auto) Urine Microscopic WBC Ur Squamous Epith Cells Urine Bacteria Hyaline Casts Urine Yeast (Budding) 02/10/17 02/10/17 02/11/17 19:11 21:42 05:00 ESR 67 H POC Glucose (mg/dL) 297 H Hemoglobin A1c Iron TIBC % Saturation Ferritin Urine Color Yellow Urine Clarity Slighty-cloudy Urine pH 5.0 Ur Specific [place] 1.009 Urine Protein Negative Urine Glucose (UA) >=500 Urine Ketones Negative Urine Blood Small Urine Nitrate Negative Urine Bilirubin Negative Urine Urobilinogen 0.2-1.0 Ur Leukocyte Esterase Mod Urine RBC (Auto) 7 H Urine Microscopic WBC 82 H Ur Squamous Epith Cells < 1 Urine Bacteria Rare Hyaline Casts 0-2 Urine Yeast (Budding) Occ H 02/11/17 02/11/17 02/11/17 05:00 05:00 05:59 ESR POC Glucose (mg/dL) 383 H Hemoglobin A1c Iron 17 L TIBC 235 L % Saturation 7 L Ferritin 97.5 Urine Color Urine Clarity Urine pH Ur Specific [place] Urine Protein Urine Glucose (UA) Urine Ketones Urine Blood Urine Nitrate Urine Bilirubin Urine Urobilinogen Ur Leukocyte Esterase Urine RBC (Auto) Urine Microscopic WBC Ur Squamous Epith Cells Urine Bacteria Hyaline Casts Urine Yeast (Budding) 02/11/17 06:47 ESR POC Glucose (mg/dL) 386 H Hemoglobin A1c Iron TIBC % Saturation Ferritin Urine Color Urine Clarity Urine pH Ur Specific [place] Urine Protein Urine Glucose (UA) Urine Ketones Urine Blood Urine Nitrate Urine Bilirubin Urine Urobilinogen Ur Leukocyte Esterase Urine RBC (Auto) Urine Microscopic WBC Ur Squamous Epith Cells Urine Bacteria Hyaline Casts Urine Yeast (Budding) Assessment & Plan - Assessment and Plan (Free Text) Assessment: CHF ARRYTHMIAS PULMONARY FIBROSIS SUPERIMPOSED PNEUMONIA COPD EXAC Plan: AGREE WITH CARDIAC EVAL AND PRESENT RX 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
--- NOTE | 2017-02-11 09:41 | CP.PCM.PN ---
Addendum entered and electronically signed by Zhanna Oneil MD 02/11/17 16 :49: Sepsis was ruled out. Original Note: <Zhanna Oneil - Last Filed: 02/11/17 14:50> Subjective - Date & Time of Evaluation Date of Evaluation: 02/11/17 Time of Evaluation: 07:10 - Subjective Subjective: Patient seen and examined at bedside. Laying in bed, dyspnea and increased sputum production persists but has improved. Reports normal urine output, tolerating PO diet. Denies chest pain, nausea, vomiting, palpitations or headaches. Objective - Vital Signs/Intake and Output Vital Signs (last 24 hours): Temp Pulse Resp BP Pulse Ox 97.6 F 119 H 20 126/85 96 02/11/17 08:29 02/11/17 08:29 02/11/17 08:29 02/11/17 09:13 02/11/17 08:29 - Medications Medications: Current Medications Albuterol/Ipratropium (Duoneb 3 Mg/0.5 Mg (3 Ml) Ud) 3 ml INH RQ6 [place] Last Admin: 02/11/17 07:55 Dose: 3 ml Dextrose (Dextrose 50% Inj) 0 ml IV STAT PRN; Protocol PRN Reason: Hyglycemia Protocol Dextrose (Glutose 15) 0 gm PO ONCE PRN; Protocol PRN Reason: Hypoglycemia Protocol Digoxin (Lanoxin) 0.125 mg PO DAILY [place] Finasteride (Proscar) 5 mg PO DAILY [place] Last Admin: 02/11/17 09:39 Dose: 5 mg Furosemide (Lasix) 40 mg IVP DAILY [place] Last Admin: 02/11/17 09:13 Dose: 40 mg Glucagon (Glucagen Diagnostic Kit) 0 mg IM STAT PRN; Protocol PRN Reason: Hypoglycemia Protocol Vancomycin HCl 1 gm/ Sodium (Chloride) 250 mls @ 166.667 mls/hr IVPB Q12 [place] Last Admin: 02/11/17 09:40 Dose: 166.667 mls/hr Piperacillin Sod/Tazobactam Sod (Zosyn 3.375 Gm Iv Premix) 3.375 gm in 50 mls @ 50 mls/hr IVPB Q6 [place] Last Admin: 02/11/17 03:57 Dose: 50 mls/hr Methylprednisolone 60 mg/ (Sodium Chloride) 50 mls @ 100 mls/hr IVPB Q6 [place] Last Admin: 02/11/17 09:14 Dose: 100 mls/hr Insulin Human Regular (Humulin R) 0 units SC ACHS [facility] PRN Reason: Protocol Last Admin: 02/11/17 06:30 Dose: 5 units Metformin HCl (Glucophage) 500 mg PO BID [facility] Last Admin: 02/11/17 09:13 Dose: 500 mg Montelukast Sodium (Singulair) 10 mg PO DAILY [facility] Last Admin: 02/11/17 09:12 Dose: 10 mg Pantoprazole Sodium (Protonix Ec Tab) 40 mg PO DAILY [facility] Last Admin: 02/11/17 09:12 Dose: 40 mg Spironolactone (Aldactone) 25 mg PO DAILY [facility] Last Admin: 02/11/17 09:12 Dose: 25 mg Tiotropium [place] (Spiriva) 18 mcg INH TID [facility] Last Admin: 02/11/17 09:12 Dose: 18 mcg - Labs Labs: 02/10/17 06:00 02/10/17 06:00 PT 24.5 Seconds (9.8-13.1) H 02/10/17 06:00 INR 2.1 (0.9-1.2) H 02/10/17 06:00 APTT 40.5 Seconds (25.6-37.1) H 02/10/17 06:00 - Constitutional Appears: Older Than Stated Age, Other (dyspneic) - Head Exam Head Exam: ATRAUMATIC, NORMOCEPHALIC - Eye Exam Eye Exam: EOMI, PERRL - ENT Exam ENT Exam: Mucous Membranes Moist - Neck Exam Neck Exam: Full ROM. absent: Lymphadenopathy - Respiratory Exam Respiratory Exam: Decreased Breath Sounds (in bilateral lower lobes), Respiratory Distress (mild) Additional comments: barrel chest - Cardiovascular Exam Cardiovascular Exam: REGULAR RHYTHM, +S1, +S2 - GI/Abdominal Exam GI & Abdominal Exam: Soft, Normal Bowel Sounds. absent: Tenderness - Extremities Exam Extremities Exam: Full ROM. absent: Calf Tenderness, Pedal Edema - Back Exam Back Exam: absent: CVA tenderness (L), CVA tenderness (R) - Neurological Exam Neurological Exam: Alert, Awake, CN II-XII Intact, Oriented x3 - Psychiatric Exam Psychiatric exam: Normal Affect, Normal Mood - Skin Skin Exam: Dry, Normal Color, Warm Assessment and Plan - Assessment and Plan (Free Text) Assessment: 82 yr old M admitted for worsening SOB on exertion x 7days and found to have COPD exacerbation. Patient has PMHx of Atrial Fibrillation, COPD, CHF (type unknown), NIDDM, pulmonary fibrosis, Penile cancer, former Etoh abuse (quit 4 yrs ago), former smoker (30 pack years, quit 8 yrs ago). Patients' SOB persists , has increased sputum production, and is tachycardic. Cardiology and Pulmonology have been consulted and are appreciated. Echocardiogram showed LVEF of 20-25%. Day 3 of IV antibiotics. COPD Exacerbation -acute, symptoms persists: SOB/increased sputum production -Duoneb 3 ml Inh Q6h [place] -Methylprednisolone 60 mg IV Q6H [place] -continue home meds: Singulair 10mg PO QD, Spiriva 18 mcg INH TID, -Supplemental O2 via nasal cannula to maintain O2 sat between 88-92%, BIPAP PRN for O2 sat < 88% -PFT's ordered Community Acquired Pneumonia -acute, leukocytosis 25.6>11.3 with left shift -CXR: suspected right basilar pneumonia - Vancomycin 1gm IV QD and Zosyn 3.375gm IV Q6 (Day 3) -f/u sputum culture Congestive Heart Failure -Systolic (Severe) -chronic, ProBNP 5620 -continue home meds: Furosemide 40mg IV QD, Spironolactone 25mg PO QD -Cardiology consult appreciated-Dr. Godfrey: d/c Amiodarone (see note) -Echocardiogram: LVEF 20-25% , severely impaired systolic function, severe MR and severe Pulm HTN(see full report) Atrial Fibrillation -stable, chronic -EKG showed Atrial flutter with 2:1 conduction -Cardiology consult appreciated-Dr. Godfrey: d/c Amiodarone (see note) -INR therapeutic 2.6 -continue home med Diltiazem 180mg PO QD, Warfarin 1 mg PO QD NIDDM -uncontrolled, chronic, HbA1c 8.4 -continue home med: Metformin 500 mg PO BID -Regular Human Insulin SC ACHS low dose protocol -started Insulin Detemir 8 units SC HS -hypoglycemia protocol -lipid panel triglyc 62/ chol 137/ LDL 76/ HDL 35 -will consider standing insulin dose Anemia of Chronic Disease -stable, chronic, likely secondary to COPD/Heart Failure -H/H: 10.0/31.2 MCV 85.3 RDW 18.6 -Iron 17, TIBC 235, transferrin 170, ferritin 97.5, C-reactive protein, ESR 67 DVT/GI prophylaxis -SCD's for now, as patient is anticoagulated with Warfarin -Protonix 40mg PO QD <Luis Garcia - Last Filed: 02/13/17 06:47> Objective - Vital Signs/Intake and Output Vital Signs (last 24 hours): Temp Pulse Resp BP Pulse Ox 97.4 F L 126 H 20 104/69 95 02/13/17 05:00 02/13/17 05:00 02/13/17 05:00 02/13/17 05:00 02/13/17 05:00 Intake and Output: 02/12/17 02/13/17 18:59 06:59 Intake Total 1150 Balance 1150 - Medications Medications: Current Medications Albuterol/Ipratropium (Duoneb 3 Mg/0.5 Mg (3 Ml) Ud) 3 ml INH RQ6 [place] Last Admin: 02/13/17 01:04 Dose: 3 ml Dextrose (Dextrose 50% Inj) 0 ml IV STAT PRN; Protocol PRN Reason: Hyglycemia Protocol Dextrose (Glutose 15) 0 gm PO ONCE PRN; Protocol PRN Reason: Hypoglycemia Protocol Digoxin (Lanoxin) 0.25 mg PO DAILY [facility] Last Admin: 02/12/17 12:07 Dose: 0.25 mg Finasteride (Proscar) 5 mg PO DAILY [place] Last Admin: 02/12/17 08:25 Dose: 5 mg Furosemide (Lasix) 40 mg IVP DAILY [place] Last Admin: 02/12/17 09:06 Dose: 40 mg Gabapentin (Neurontin) 100 mg PO HS [place] Last Admin: 02/12/17 23:06 Dose: 100 mg Glucagon (Glucagen Diagnostic Kit) 0 mg IM STAT PRN; Protocol PRN Reason: Hypoglycemia Protocol Guaifenesin/Dextromethorphan (Robitussin Dm) 10 ml PO Q6 PRN PRN Reason: Cough Last Admin: 02/11/17 19:43 Dose: 10 ml Vancomycin HCl 1 gm/ Sodium (Chloride) 250 mls @ 166.667 mls/hr IVPB Q12 [place] Last Admin: 02/12/17 23:11 Dose: 166.667 mls/hr Piperacillin Sod/Tazobactam Sod (Zosyn 3.375 Gm Iv Premix) 3.375 gm in 50 mls @ 50 mls/hr IVPB Q6 [facility] Last Admin: 02/13/17 03:28 Dose: 50 mls/hr Methylprednisolone 60 mg/ (Sodium Chloride) 50 mls @ 100 mls/hr IVPB Q12 [facility] Insulin Detemir (Levemir) 8 units SC HS [facility] Last Admin: 02/12/17 22:26 Dose: 8 units Insulin Detemir (Levemir) 8 units SC BRK [facility] Insulin Human Regular (Humulin R) 0 units SC TIDAC [facility] PRN Reason: Protocol Last Admin: 02/12/17 16:53 Dose: 1 units Metformin HCl (Glucophage) 500 mg PO BID [facility] Last Admin: 02/12/17 16:15 Dose: 500 mg Montelukast Sodium (Singulair) 10 mg PO DAILY [facility] Last Admin: 02/12/17 08:26 Dose: 10 mg Pantoprazole Sodium (Protonix Ec Tab) 40 mg PO DAILY [facility] Last Admin: 02/12/17 08:25 Dose: 40 mg Spironolactone (Aldactone) 25 mg PO DAILY [facility] Last Admin: 02/12/17 08:23 Dose: 25 mg Tiotropium [place] (Spiriva) 18 mcg INH DAILY [facility] - Labs Labs: 02/10/17 06:00 02/12/17 06:40 PT 30.1 Seconds (9.8-13.1) H 02/12/17 06:40 INR 2.6 (0.9-1.2) H 02/12/17 06:40 APTT 40.5 Seconds (25.6-37.1) H 02/10/17 06:00 Attending/Attestation - Attestation I have personally seen and examined this patient.: Yes I have fully participated in the care of the patient.: Yes I have reviewed all pertinent clinical information, including history, physical exam and plan: Yes
[2017-02-11 09:45] LABS: INR 2.6 (0.9-1.2); PROTHROMBIN TIME 29.4 Seconds (9.8-13.1)
[2017-02-11] MEDS: Digoxin 125 mcg (0.125 mg) Tab PO SCH (11:33)
[2017-02-11] MEDS: guaiFENesin DM 200 mg-20 mg/10 ml UD PO PRN ×2 (12:17→19:43)
--- NOTE | 2017-02-11 13:13 | PQF CHF ---
This form is a permanent part of the medical record 02/11/17 Dr. Shanel Godfrey, After the Echo is available would you mind clarifying the type /acuity of CHF. Documentation of a history of CHF: Medications include: Lasix and Aldactone. Echo pending. Clarification of your documentation is requested to better reflect the severity of illness and intensity of treatment of your patient. Indicators present [x] Diagnosis of CHF and/or history of CHF [x] BNP > 200 Results: 5620 [] Imaging Finding of Pulmonary Edema /Pleural Effusions [] Fluid/Volume Overload [] Pitting edema [] Ejection Fraction < 40% (Indicative of Systolic Heart Failure) [] Ejection Fraction > 40% (Indicative of Diastolic Heart Failure) [] Dyspnea / Orthopenea / Paroxysmal Nocturnal Dyspnea [] Other: Location in the medical record that reflects the above clinical findings: [] Treatment Provided: [] PHYSICIAN'S RESPONSE CHF is "Left ventricular, systolic and chronic" Based on your medical judgment of the clinical indicators outlined above, are you treating this patient for a known or suspected: [] Acute CHF [] Systolic [] Diastolic [] Combined [] Chronic CHF [] Systolic [] Diastolic [] Combined [] Acute on Chronic CHF []Systolic [] Diastolic [] Combined [] CHF due hypertension [] Acute systolic []Chronic systolic [] Acute/ chronic systolic [] Other, please indicate: [] [] If Unable to Determine, please check the box, sign and date. Present On Admission (POA) Indicator: [] Present at the time of admission [] Not present at the time of admission [] Clinically Undetermined In responding to this query, please exercise your independent professional judgment. The fact that a question is asked does not imply that any particular answer is desired or expected. Thank you for your clarification on this documentation. If you have any questions please call:ext [phone] * Thank you, Irene Garrett RN CDMP MTDD
[2017-02-11] MEDS ORDERED: Alum-Mag Hydrox-Simethicone Susp (30 mL) PO ONE (18:51)
[2017-02-11] MEDS: Insulin Detemir 100 Units/ml Inj SC SCH (23:10)
[2017-02-12] MEDS: Piperacill/Tazo 3.375gm in Dex 3.375 GM/50 ML BAG IVPB SCH ×5 (00:22→22:25)
[2017-02-12] MEDS: methylPREDNISolone 60 MG in Sodium Chloride 0.9% 50 ML IVPB SCH ×3 (03:32→16:14)
[2017-02-12 07:53] LABS: ALB/GLOB RATIO 1.2 (1.0-2.1); ALBUMIN 3.6 g/dL (3.5-5.0); ALT/SGPT 45 U/L (21-72); AST/SGOT 22 U/L (17-59); BLOOD UREA NITROGEN 42 mg/dl (9-20); CALCIUM 8.9 mg/dL (8.4-10.2); GFR AFRICAN-AMERICAN > 60; GFR NON-AFRICAN AMERICAN 58
[2017-02-12] MEDS: Tiotropium 18 mcg Cap For Inhalation INH SCH (08:22)
[2017-02-12] MEDS: Digoxin 125 mcg (0.125 mg) Tab PO SCH (08:24)
[2017-02-12] MEDS: Pantoprazole 40 mg EC Tab PO SCH (08:25)
[2017-02-12 08:35] LABS: INR 2.6 (0.9-1.2); PROTHROMBIN TIME 30.1 Seconds (9.8-13.1)
[2017-02-12] MEDS: Albuterol-Ipratrop 3 mg / 0.5 (3 ml) UD INH SCH ×3 (08:35→19:35)
[2017-02-12] MEDS: Insulin Regular 100 units/ml SC SCH ×3 (09:06→16:53)
--- NOTE | 2017-02-12 09:37 | CP.PCM.PN ---
Subjective - Date & Time of Evaluation Date of Evaluation: 02/12/17 Time of Evaluation: 09:36 - Subjective Subjective: clinically improving cough and sob less Objective - Vital Signs/Intake and Output Vital Signs (last 24 hours): Temp Pulse Resp BP Pulse Ox 97.5 F L 126 H 18 116/78 97 02/12/17 08:18 02/12/17 08:18 02/12/17 08:18 02/12/17 09:06 02/12/17 08:18 - Medications Medications: Current Medications Albuterol/Ipratropium (Duoneb 3 Mg/0.5 Mg (3 Ml) Ud) 3 ml INH RQ6 [facility] Last Admin: 02/12/17 08:35 Dose: 3 ml Dextrose (Dextrose 50% Inj) 0 ml IV STAT PRN; Protocol PRN Reason: Hyglycemia Protocol Dextrose (Glutose 15) 0 gm PO ONCE PRN; Protocol PRN Reason: Hypoglycemia Protocol Digoxin (Lanoxin) 0.125 mg PO DAILY [facility] Last Admin: 02/12/17 08:24 Dose: 0.125 mg Finasteride (Proscar) 5 mg PO DAILY [facility] Last Admin: 02/12/17 08:25 Dose: 5 mg Furosemide (Lasix) 40 mg IVP DAILY [facility] Last Admin: 02/12/17 09:06 Dose: 40 mg Glucagon (Glucagen Diagnostic Kit) 0 mg IM STAT PRN; Protocol PRN Reason: Hypoglycemia Protocol Guaifenesin/Dextromethorphan (Robitussin Dm) 10 ml PO Q6 PRN PRN Reason: Cough Last Admin: 02/11/17 19:43 Dose: 10 ml Vancomycin HCl 1 gm/ Sodium (Chloride) 250 mls @ 166.667 mls/hr IVPB Q12 [facility] Last Admin: 02/12/17 08:20 Dose: 166.667 mls/hr Piperacillin Sod/Tazobactam Sod (Zosyn 3.375 Gm Iv Premix) 3.375 gm in 50 mls @ 50 mls/hr IVPB Q6 [facility] Last Admin: 02/12/17 09:09 Dose: 50 mls/hr Methylprednisolone 60 mg/ (Sodium Chloride) 50 mls @ 100 mls/hr IVPB Q6 [facility] Last Admin: 02/12/17 09:06 Dose: 100 mls/hr Insulin Detemir (Levemir) 8 units SC HS [facility] Last Admin: 02/11/17 23:10 Dose: 8 units Insulin Human Regular (Humulin R) 0 units SC TIDAC [facility] PRN Reason: Protocol Last Admin: 02/12/17 09:06 Dose: 3 units Metformin HCl (Glucophage) 500 mg PO BID [facility] Last Admin: 02/12/17 08:23 Dose: 500 mg Montelukast Sodium (Singulair) 10 mg PO DAILY [facility] Last Admin: 02/12/17 08:26 Dose: 10 mg Pantoprazole Sodium (Protonix Ec Tab) 40 mg PO DAILY [facility] Last Admin: 02/12/17 08:25 Dose: 40 mg Spironolactone (Aldactone) 25 mg PO DAILY [facility] Last Admin: 02/12/17 08:23 Dose: 25 mg Tiotropium [place] (Spiriva) 18 mcg INH TID [facility] Last Admin: 02/12/17 08:22 Dose: 18 mcg - Labs Labs: 02/10/17 06:00 02/12/17 06:40 PT 30.1 Seconds (9.8-13.1) H 02/12/17 06:40 INR 2.6 (0.9-1.2) H 02/12/17 06:40 APTT 40.5 Seconds (25.6-37.1) H 02/10/17 06:00 - Constitutional Appears: No Acute Distress - Head Exam Head Exam: ATRAUMATIC, NORMAL INSPECTION, NORMOCEPHALIC - Eye Exam Eye Exam: EOMI, Normal appearance, PERRL Pupil Exam: NORMAL ACCOMODATION, PERRL - ENT Exam ENT Exam: Mucous Membranes Moist, Normal Exam - Neck Exam Neck Exam: Full ROM, Normal Inspection. absent: Lymphadenopathy - Respiratory Exam Respiratory Exam: Decreased Breath Sounds, Prolonged Expiratory Phase, Rales, NORMAL BREATHING PATTERN - Cardiovascular Exam Cardiovascular Exam: REGULAR RHYTHM, +S1, +S2. absent: Murmur - GI/Abdominal Exam GI & Abdominal Exam: Soft, Normal Bowel Sounds. absent: Tenderness - Rectal Exam Rectal Exam: NORMAL INSPECTION - Extremities Exam Extremities Exam: Full ROM, Normal Capillary Refill, Normal Inspection. absent : Joint Swelling, Pedal Edema - Back Exam Back Exam: NORMAL INSPECTION - Neurological Exam Neurological Exam: Alert, Awake, CN II-XII Intact, Normal Gait, Oriented x3 - Psychiatric Exam Psychiatric exam: Normal Affect, Normal Mood - Skin Skin Exam: Dry, Intact, Normal Color, Warm Assessment and Plan - Assessment and Plan (Free Text) Assessment: chf copd arrythmias Plan: continue present rx cancel pfts
--- NOTE | 2017-02-12 10:02 | CP.PCM.PN ---
Subjective - Date & Time of Evaluation Date of Evaluation: 02/12/17 Time of Evaluation: 09:40 - Subjective Subjective: Still moderately dyspnoic at rest A Flutter with 2:1 conduction and HR 120 BPM BP 110/70 mm Hg JVP flat, no oedema over feet S3 gallop persists Labs noted GFR 58 ml/min K+ normal Have raised Digoxin dose to control HR Implications of Class iV CHF explained to pt's daughter Objective - Vital Signs/Intake and Output Vital Signs (last 24 hours): Temp Pulse Resp BP Pulse Ox 97.5 F L 126 H 18 116/78 97 02/12/17 08:18 02/12/17 08:18 02/12/17 08:18 02/12/17 09:06 02/12/17 08:18 - Medications Medications: Current Medications Albuterol/Ipratropium (Duoneb 3 Mg/0.5 Mg (3 Ml) Ud) 3 ml INH RQ6 [facility] Last Admin: 02/12/17 08:35 Dose: 3 ml Dextrose (Dextrose 50% Inj) 0 ml IV STAT PRN; Protocol PRN Reason: Hyglycemia Protocol Dextrose (Glutose 15) 0 gm PO ONCE PRN; Protocol PRN Reason: Hypoglycemia Protocol Digoxin (Lanoxin) 0.25 mg PO DAILY [facility] Finasteride (Proscar) 5 mg PO DAILY [facility] Last Admin: 02/12/17 08:25 Dose: 5 mg Furosemide (Lasix) 40 mg IVP DAILY [facility] Last Admin: 02/12/17 09:06 Dose: 40 mg Glucagon (Glucagen Diagnostic Kit) 0 mg IM STAT PRN; Protocol PRN Reason: Hypoglycemia Protocol Guaifenesin/Dextromethorphan (Robitussin Dm) 10 ml PO Q6 PRN PRN Reason: Cough Last Admin: 02/11/17 19:43 Dose: 10 ml Vancomycin HCl 1 gm/ Sodium (Chloride) 250 mls @ 166.667 mls/hr IVPB Q12 [facility] Last Admin: 02/12/17 08:20 Dose: 166.667 mls/hr Piperacillin Sod/Tazobactam Sod (Zosyn 3.375 Gm Iv Premix) 3.375 gm in 50 mls @ 50 mls/hr IVPB Q6 [facility] Last Admin: 02/12/17 09:09 Dose: 50 mls/hr Methylprednisolone 60 mg/ (Sodium Chloride) 50 mls @ 100 mls/hr IVPB Q6 [facility] Last Admin: 02/12/17 09:06 Dose: 100 mls/hr Insulin Detemir (Levemir) 8 units SC HS [facility] Last Admin: 02/11/17 23:10 Dose: 8 units Insulin Human Regular (Humulin R) 0 units SC TIDAC [facility] PRN Reason: Protocol Last Admin: 02/12/17 09:06 Dose: 3 units Metformin HCl (Glucophage) 500 mg PO BID [facility] Last Admin: 02/12/17 08:23 Dose: 500 mg Montelukast Sodium (Singulair) 10 mg PO DAILY [facility] Last Admin: 02/12/17 08:26 Dose: 10 mg Pantoprazole Sodium (Protonix Ec Tab) 40 mg PO DAILY [facility] Last Admin: 02/12/17 08:25 Dose: 40 mg Spironolactone (Aldactone) 25 mg PO DAILY [facility] Last Admin: 02/12/17 08:23 Dose: 25 mg Tiotropium [place] (Spiriva) 18 mcg INH TID [facility] Last Admin: 02/12/17 08:22 Dose: 18 mcg - Labs Labs: 02/10/17 06:00 02/12/17 06:40 PT 30.1 Seconds (9.8-13.1) H 02/12/17 06:40 INR 2.6 (0.9-1.2) H 02/12/17 06:40 APTT 40.5 Seconds (25.6-37.1) H 02/10/17 06:00
--- NOTE | 2017-02-12 10:42 | CP.PCM.PN ---
<Zhanna Oneil - Last Filed: 02/12/17 21:01> Subjective - Date & Time of Evaluation Date of Evaluation: 02/12/17 Time of Evaluation: 07:15 - Subjective Subjective: Patient seen and examined at bedside, sitting in bed, no acute events overnight. Reports SOB persists but has mildly improved. Tolerating PO diet, afebrile, has normal urine output. Denies chest pain, headaches, dizziness or palpitations. Objective - Vital Signs/Intake and Output Vital Signs (last 24 hours): Temp Pulse Resp BP Pulse Ox 97.5 F L 126 H 18 116/78 97 02/12/17 08:18 02/12/17 08:18 02/12/17 08:18 02/12/17 09:06 02/12/17 08:18 - Medications Medications: Current Medications Albuterol/Ipratropium (Duoneb 3 Mg/0.5 Mg (3 Ml) Ud) 3 ml INH RQ6 [place] Last Admin: 02/12/17 08:35 Dose: 3 ml Dextrose (Dextrose 50% Inj) 0 ml IV STAT PRN; Protocol PRN Reason: Hyglycemia Protocol Dextrose (Glutose 15) 0 gm PO ONCE PRN; Protocol PRN Reason: Hypoglycemia Protocol Digoxin (Lanoxin) 0.25 mg PO DAILY [place] Finasteride (Proscar) 5 mg PO DAILY [place] Last Admin: 02/12/17 08:25 Dose: 5 mg Furosemide (Lasix) 40 mg IVP DAILY [place] Last Admin: 02/12/17 09:06 Dose: 40 mg Glucagon (Glucagen Diagnostic Kit) 0 mg IM STAT PRN; Protocol PRN Reason: Hypoglycemia Protocol Guaifenesin/Dextromethorphan (Robitussin Dm) 10 ml PO Q6 PRN PRN Reason: Cough Last Admin: 02/11/17 19:43 Dose: 10 ml Vancomycin HCl 1 gm/ Sodium (Chloride) 250 mls @ 166.667 mls/hr IVPB Q12 [place] Last Admin: 02/12/17 08:20 Dose: 166.667 mls/hr Piperacillin Sod/Tazobactam Sod (Zosyn 3.375 Gm Iv Premix) 3.375 gm in 50 mls @ 50 mls/hr IVPB Q6 [place] Last Admin: 02/12/17 09:09 Dose: 50 mls/hr Methylprednisolone 60 mg/ (Sodium Chloride) 50 mls @ 100 mls/hr IVPB Q6 [facility] Last Admin: 02/12/17 09:06 Dose: 100 mls/hr Insulin Detemir (Levemir) 8 units SC HS [facility] Last Admin: 02/11/17 23:10 Dose: 8 units Insulin Human Regular (Humulin R) 0 units SC TIDAC [facility] PRN Reason: Protocol Last Admin: 02/12/17 09:06 Dose: 3 units Metformin HCl (Glucophage) 500 mg PO BID [facility] Last Admin: 02/12/17 08:23 Dose: 500 mg Montelukast Sodium (Singulair) 10 mg PO DAILY [facility] Last Admin: 02/12/17 08:26 Dose: 10 mg Pantoprazole Sodium (Protonix Ec Tab) 40 mg PO DAILY [facility] Last Admin: 02/12/17 08:25 Dose: 40 mg Spironolactone (Aldactone) 25 mg PO DAILY [facility] Last Admin: 02/12/17 08:23 Dose: 25 mg Tiotropium [place] (Spiriva) 18 mcg INH TID [facility] Last Admin: 02/12/17 08:22 Dose: 18 mcg - Labs Labs: 02/10/17 06:00 02/12/17 06:40 PT 30.1 Seconds (9.8-13.1) H 02/12/17 06:40 INR 2.6 (0.9-1.2) H 02/12/17 06:40 APTT 40.5 Seconds (25.6-37.1) H 02/10/17 06:00 - Constitutional Appears: Older Than Stated Age - Head Exam Head Exam: ATRAUMATIC, NORMOCEPHALIC - Eye Exam Eye Exam: EOMI - ENT Exam ENT Exam: Mucous Membranes Moist - Neck Exam Neck Exam: Full ROM. absent: Lymphadenopathy - Respiratory Exam Respiratory Exam: Decreased Breath Sounds, Rhonchi (diffuse). absent: Chest Wall Tenderness (barrel chest) - Cardiovascular Exam Cardiovascular Exam: Gallop, REGULAR RHYTHM, +S1, +S2 - GI/Abdominal Exam GI & Abdominal Exam: Soft, Normal Bowel Sounds. absent: Distended, Tenderness - Extremities Exam Extremities Exam: Full ROM. absent: Calf Tenderness, Pedal Edema - Back Exam Back Exam: absent: CVA tenderness (L), CVA tenderness (R) - Neurological Exam Neurological Exam: Alert, Awake, CN II-XII Intact, Oriented x3 - Psychiatric Exam Psychiatric exam: Normal Affect, Normal Mood - Skin Skin Exam: Dry, Intact, Warm Assessment and Plan - Assessment and Plan (Free Text) Assessment: 82 yr old M admitted for worsening SOB on exertion x 7days and found to have COPD exacerbation and severe systolic CHF. Patient has PMHx of Atrial Fibrillation, COPD, Systolic CHF, NIDDM, pulmonary fibrosis, Penile cancer, former Etoh abuse (quit 4 yrs ago), former smoker (30 pack years, quit 8 yrs ago ). Patients' SOB persists but has mildly improved, remains tachycardic. Cardiology onboard and adjusting medications to control heart rate. Pulmonology on board will continue current tx. Echocardiogram showed LVEF of 20-25%. Day 4 of IV antibiotics. COPD Exacerbation -acute, symptoms persists but slowly improving: SOB/increased sputum production -Duoneb 3 ml Inh Q6h [place] -tapered Methylprednisolone to 60 mg IV Q12H [place] -continue home meds: Singulair 10mg PO QD, adjusted Spiriva to 18 mcg INH QD, -Supplemental O2 via nasal cannula to maintain O2 sat between 88-92%, BIPAP PRN for O2 sat < 88% -PFT's cancelled per Pulmonology (pt with severe systolic CHF, tachycardia, SOB persists) Community Acquired Pneumonia -acute, leukocytosis 25.6>11.3 with left shift -CXR: suspected right basilar pneumonia - Vancomycin 1gm IV QD and Zosyn 3.375gm IV Q6 (Day 4) -sputum culture: positive for GNR's Congestive Heart Failure -Systolic (Severe) -chronic, ProBNP 5620 -continue home meds: Furosemide 40mg IV QD, Spironolactone 25mg PO QD -Cardiology consult appreciated-Dr. Godfrey: d/c Amiodarone (see note) -Echocardiogram: LVEF 20-25% , severely impaired systolic function, severe MR and severe Pulm HTN(see full report) Atrial Fibrillation -stable, chronic -EKG showed Atrial flutter with 2:1 conduction -Cardiology consult appreciated-Dr. Godfrey: d/c Amiodarone (see note); Digoxin 0.25mg PO QD -INR therapeutic 2.6 -continue home med Diltiazem 180mg PO QD, Warfarin 1 mg PO QD NIDDM -uncontrolled, chronic, HbA1c 8.4 -continue home med: Metformin 500 mg PO BID -Regular Human Insulin SC ACHS low dose protocol -started Insulin Detemir 8 units SC with BRK and 8 units SC HS -Gabapentin 100mg PO QHS for diabetic peripheral neuropathy -hypoglycemia protocol -lipid panel triglyc 62/ chol 137/ LDL 76/ HDL 35 Anemia of Chronic Disease -stable, chronic, likely secondary to COPD/Heart Failure -H/H: 10.0/31.2 MCV 85.3 RDW 18.6 -Iron 17, TIBC 235, transferrin 170, ferritin 97.5, C-reactive protein elevated , ESR 67 DVT/GI prophylaxis -SCD's for now, as patient is anticoagulated with Warfarin (INR within therapeutic range) -Protonix 40mg PO QD <Chris Aguirre - Last Filed: 02/17/17 07:05> Objective - Vital Signs/Intake and Output Vital Signs (last 24 hours): Temp Pulse Resp BP Pulse Ox 97.3 F L 73 20 143/75 97 02/14/17 15:38 02/14/17 15:38 02/14/17 15:38 02/14/17 15:38 02/14/17 15:38 - Labs Labs: 02/13/17 05:00 02/14/17 05:15 PT 21.8 Seconds (9.8-13.1) H D 02/14/17 05:15 INR 1.9 (0.9-1.2) H 02/14/17 05:15 APTT 40.5 Seconds (25.6-37.1) H 02/10/17 06:00 Attending/Attestation - Attestation I have personally seen and examined this patient.: Yes I have fully participated in the care of the patient.: Yes I have reviewed all pertinent clinical information, including history, physical exam and plan: Yes
[2017-02-12] MEDS: Digoxin 250 mcg (0.25 mg) Tab PO SCH (12:07)
[2017-02-12] MEDS ORDERED: Alum-Mag Hydrox-Simethicone Susp (30 mL) PO ONE (21:38)
[2017-02-12] MEDS ORDERED: Insulin Regular 100 units/ml SC ONE (22:02)
[2017-02-12] MEDS: Insulin Detemir 100 Units/ml Inj SC SCH (22:26)
[2017-02-13] MEDS: Albuterol-Ipratrop 3 mg / 0.5 (3 ml) UD INH SCH ×2 (01:04→07:55)
[2017-02-13] MEDS: Piperacill/Tazo 3.375gm in Dex 3.375 GM/50 ML BAG IVPB SCH ×2 (03:28→09:28)
[2017-02-13 07:14] LABS: HEMOGLOBIN 10.2 g/dL (12.0-18.0); MEAN CELL VOLUME 85.9 fl (80.0-94.0); MEAN CORPUSCULAR HEMOGLOBIN 27.5 pg (27.0-31.0); MEAN CORPUSCULAR HGB CONC 32.1 g/dL (33.0-37.0); RBC 3.71 Mil/uL (4.40-5.90); RED CELL DISTRIBUTION WIDTH 18.6 % (11.5-14.5); WHITE BLOOD COUNT 9.2 K/uL (4.8-10.8)
[2017-02-13 07:31] LABS: ALB/GLOB RATIO 1.3 (1.0-2.1); ALBUMIN 3.4 g/dL (3.5-5.0); ALT/SGPT 41 U/L (21-72); AST/SGOT 17 U/L (17-59); BLOOD UREA NITROGEN 43 mg/dl (9-20); CALCIUM 8.8 mg/dL (8.4-10.2); GFR AFRICAN-AMERICAN > 60; GFR NON-AFRICAN AMERICAN > 60
[2017-02-13 07:35] LABS: INR 2.3 (0.9-1.2); PROTHROMBIN TIME 26.9 Seconds (9.8-13.1)
[2017-02-13 08:29] LABS: SQUAMOUS EPITHIAL 1 /hpf (0-5); URINE BACTERIA RARE (<OCC); URINE BILIRUBIN NEGATIVE (NEGATIVE); URINE BLOOD MODERATE (NEGATIVE); URINE CLARITY CLOUDY (Clear); URINE COLOR YELLOW (YELLOW); URINE GLUCOSE (UA) >=500 mg/dL (Normal); URINE LEUKOCYTE ESTERASE LARGE Leu/uL (Negative); URINE NITRATE NEGATIVE (NEGATIVE); URINE PROTEIN 30 mg/dL (NEGATIVE); URINE UROBILINOGEN 0.2-1.0 mg/dL (0.2-1.0); WBC CLUMPS FEW /hpf
[2017-02-13] MEDS: Digoxin 250 mcg (0.25 mg) Tab PO SCH (09:14)
[2017-02-13] MEDS: Pantoprazole 40 mg EC Tab PO SCH (09:15)
[2017-02-13] MEDS: Insulin Detemir 100 Units/ml Inj SC SCH ×2 (09:15→22:11)
[2017-02-13] MEDS: Tiotropium 18 mcg Cap For Inhalation INH SCH (09:16)
[2017-02-13] MEDS: methylPREDNISolone 60 MG in Sodium Chloride 0.9% 50 ML IVPB SCH ×2 (09:19→22:13)
--- NOTE | 2017-02-13 09:30 | CP.PCM.PN ---
Subjective - Date & Time of Evaluation Date of Evaluation: 02/13/17 Time of Evaluation: 09:30 - Subjective Subjective: FEELS BETTER TODAY SOB IMPROVING Objective - Vital Signs/Intake and Output Vital Signs (last 24 hours): Temp Pulse Resp BP Pulse Ox 97.6 F 103 H 18 115/78 97 02/13/17 08:12 02/13/17 08:12 02/13/17 08:12 02/13/17 09:14 02/13/17 08:12 - Medications Medications: Current Medications Albuterol/Ipratropium (Duoneb 3 Mg/0.5 Mg (3 Ml) Ud) 3 ml INH RQ6 [facility] Last Admin: 02/13/17 07:55 Dose: 3 ml Dextrose (Dextrose 50% Inj) 0 ml IV STAT PRN; Protocol PRN Reason: Hyglycemia Protocol Dextrose (Glutose 15) 0 gm PO ONCE PRN; Protocol PRN Reason: Hypoglycemia Protocol Digoxin (Lanoxin) 0.25 mg PO DAILY [facility] Last Admin: 02/13/17 09:14 Dose: 0.25 mg Finasteride (Proscar) 5 mg PO DAILY [facility] Last Admin: 02/13/17 09:15 Dose: 5 mg Furosemide (Lasix) 40 mg IVP DAILY [facility] Last Admin: 02/13/17 09:14 Dose: 40 mg Gabapentin (Neurontin) 100 mg PO HS [facility] Last Admin: 02/12/17 23:06 Dose: 100 mg Glucagon (Glucagen Diagnostic Kit) 0 mg IM STAT PRN; Protocol PRN Reason: Hypoglycemia Protocol Guaifenesin/Dextromethorphan (Robitussin Dm) 10 ml PO Q6 PRN PRN Reason: Cough Last Admin: 02/11/17 19:43 Dose: 10 ml Vancomycin HCl 1 gm/ Sodium (Chloride) 250 mls @ 166.667 mls/hr IVPB Q12 [facility] Last Admin: 02/13/17 09:17 Dose: 166.667 mls/hr Piperacillin Sod/Tazobactam Sod (Zosyn 3.375 Gm Iv Premix) 3.375 gm in 50 mls @ 50 mls/hr IVPB Q6 [facility] Last Admin: 02/13/17 03:28 Dose: 50 mls/hr Methylprednisolone 60 mg/ (Sodium Chloride) 50 mls @ 100 mls/hr IVPB Q12 [facility] Last Admin: 02/13/17 09:19 Dose: 100 mls/hr Insulin Detemir (Levemir) 8 units SC HS [facility] Last Admin: 02/12/17 22:26 Dose: 8 units Insulin Detemir (Levemir) 8 units SC BRK [facility] Last Admin: 02/13/17 09:15 Dose: 8 u Insulin Human Regular (Humulin R) 0 units SC TIDAC [facility] PRN Reason: Protocol Last Admin: 02/12/17 16:53 Dose: 1 units Metformin HCl (Glucophage) 500 mg PO BID [facility] Last Admin: 02/13/17 09:14 Dose: 500 mg Montelukast Sodium (Singulair) 10 mg PO DAILY [facility] Last Admin: 02/13/17 09:15 Dose: 10 mg Pantoprazole Sodium (Protonix Ec Tab) 40 mg PO DAILY [facility] Last Admin: 02/13/17 09:15 Dose: 40 mg Spironolactone (Aldactone) 25 mg PO DAILY [facility] Last Admin: 02/13/17 09:13 Dose: 25 mg Tiotropium [place] (Spiriva) 18 mcg INH DAILY [facility] Last Admin: 02/13/17 09:16 Dose: 18 mcg - Labs Labs: 02/13/17 05:00 02/13/17 05:00 PT 26.9 Seconds (9.8-13.1) H 02/13/17 05:00 INR 2.3 (0.9-1.2) H 02/13/17 05:00 APTT 40.5 Seconds (25.6-37.1) H 02/10/17 06:00 - Constitutional Appears: No Acute Distress - Head Exam Head Exam: ATRAUMATIC, NORMAL INSPECTION, NORMOCEPHALIC - Eye Exam Eye Exam: EOMI, Normal appearance, PERRL Pupil Exam: NORMAL ACCOMODATION, PERRL - ENT Exam ENT Exam: Mucous Membranes Moist, Normal Exam - Neck Exam Neck Exam: Full ROM, Normal Inspection. absent: Lymphadenopathy - Respiratory Exam Respiratory Exam: Decreased Breath Sounds, Prolonged Expiratory Phase, NORMAL BREATHING PATTERN - Cardiovascular Exam Cardiovascular Exam: Irregular Rhythm, +S1, +S2. absent: Murmur - GI/Abdominal Exam GI & Abdominal Exam: Soft, Normal Bowel Sounds. absent: Tenderness - Rectal Exam Rectal Exam: NORMAL INSPECTION - Extremities Exam Extremities Exam: Full ROM, Normal Capillary Refill, Normal Inspection. absent : Joint Swelling, Pedal Edema - Back Exam Back Exam: NORMAL INSPECTION - Neurological Exam Neurological Exam: Abnormal Gait, Alert, Awake, CN II-XII Intact, Oriented x3 - Psychiatric Exam Psychiatric exam: Normal Affect, Normal Mood - Skin Skin Exam: Dry, Intact, Normal Color, Warm Assessment and Plan - Assessment and Plan (Free Text) Assessment: CHF-IMPROVING ARRYTHMIAS COPD-IMPROVING GENERAL DEBILITY Plan: PHYSICAL RX AGREE WITH PRESENT RX REPEAT CXR CONSIDER TCU
--- NOTE | 2017-02-13 10:13 | RAD ---
PROCEDURE: CHEST RADIOGRAPH, 1 VIEW HISTORY: CHF COMPARISON: 02/09/2017 FINDINGS: LUNGS: Improving medial right basilar infiltrate, likely lower lobe. No silhouetting of the right heart border. PLEURA: Small right pleural effusion. No left pleural effusion. No pneumothorax. CARDIOVASCULAR: Normal. OSSEOUS STRUCTURES: No significant abnormalities. VISUALIZED UPPER ABDOMEN: Normal. OTHER FINDINGS: None. IMPRESSION: Improving right basilar infiltrate, likely lower lobe. Small right pleural effusion, not evident on prior examination. Otherwise unremarkable.
--- NOTE | 2017-02-13 11:08 | CP.PCM.PN ---
Subjective - Date & Time of Evaluation Date of Evaluation: 02/13/17 Time of Evaluation: 09:30 - Subjective Subjective: BOONE continues but much less than at admission Could walk to the BR and back with mild dyspnoea HR 100-105 with higher dose of DIG (120 BPM following Albuterol Rx) BP 110/70 mm Hg JVP flat, [place]+ No rales Will add a small dose of Metoprolol to slow HR Pt scheduled to go to med/surg floor Objective - Vital Signs/Intake and Output Vital Signs (last 24 hours): Temp Pulse Resp BP Pulse Ox 97.6 F 103 H 18 115/78 97 02/13/17 08:12 02/13/17 08:12 02/13/17 08:12 02/13/17 09:14 02/13/17 08:12 - Medications Medications: Current Medications Albuterol/Ipratropium (Duoneb 3 Mg/0.5 Mg (3 Ml) Ud) 3 ml INH RQ6 [facility] Last Admin: 02/13/17 07:55 Dose: 3 ml Dextrose (Dextrose 50% Inj) 0 ml IV STAT PRN; Protocol PRN Reason: Hyglycemia Protocol Dextrose (Glutose 15) 0 gm PO ONCE PRN; Protocol PRN Reason: Hypoglycemia Protocol Digoxin (Lanoxin) 0.25 mg PO DAILY [facility] Last Admin: 02/13/17 09:14 Dose: 0.25 mg Finasteride (Proscar) 5 mg PO DAILY [facility] Last Admin: 02/13/17 09:15 Dose: 5 mg Furosemide (Lasix) 40 mg IVP DAILY [facility] Last Admin: 02/13/17 09:14 Dose: 40 mg Gabapentin (Neurontin) 100 mg PO HS [facility] Last Admin: 02/12/17 23:06 Dose: 100 mg Glucagon (Glucagen Diagnostic Kit) 0 mg IM STAT PRN; Protocol PRN Reason: Hypoglycemia Protocol Guaifenesin/Dextromethorphan (Robitussin Dm) 10 ml PO Q6 PRN PRN Reason: Cough Last Admin: 02/11/17 19:43 Dose: 10 ml Vancomycin HCl 1 gm/ Sodium (Chloride) 250 mls @ 166.667 mls/hr IVPB Q12 [facility] Last Admin: 02/13/17 09:17 Dose: 166.667 mls/hr Piperacillin Sod/Tazobactam Sod (Zosyn 3.375 Gm Iv Premix) 3.375 gm in 50 mls @ 50 mls/hr IVPB Q6 [facility] Last Admin: 02/13/17 09:28 Dose: 50 mls/hr Methylprednisolone 60 mg/ (Sodium Chloride) 50 mls @ 100 mls/hr IVPB Q12 [facility] Last Admin: 02/13/17 09:19 Dose: 100 mls/hr Insulin Detemir (Levemir) 8 units SC HS [facility] Last Admin: 02/12/17 22:26 Dose: 8 units Insulin Detemir (Levemir) 8 units SC BRK [facility] Last Admin: 02/13/17 09:15 Dose: 8 u Insulin Human Regular (Humulin R) 0 units SC TIDAC [facility] PRN Reason: Protocol Last Admin: 02/12/17 16:53 Dose: 1 units Metformin HCl (Glucophage) 500 mg PO BID [facility] Last Admin: 02/13/17 09:14 Dose: 500 mg Montelukast Sodium (Singulair) 10 mg PO DAILY [facility] Last Admin: 02/13/17 09:15 Dose: 10 mg Pantoprazole Sodium (Protonix Ec Tab) 40 mg PO DAILY [facility] Last Admin: 02/13/17 09:15 Dose: 40 mg Spironolactone (Aldactone) 25 mg PO DAILY [facility] Last Admin: 02/13/17 09:13 Dose: 25 mg Tiotropium [place] (Spiriva) 18 mcg INH DAILY [facility] Last Admin: 02/13/17 09:16 Dose: 18 mcg - Labs Labs: 02/13/17 05:00 02/13/17 05:00 PT 26.9 Seconds (9.8-13.1) H 02/13/17 05:00 INR 2.3 (0.9-1.2) H 02/13/17 05:00 APTT 40.5 Seconds (25.6-37.1) H 02/10/17 06:00
--- NOTE | 2017-02-13 12:01 | CP.PCM.PN ---
<Zhanna Oneil - Last Filed: 02/13/17 12:06> Subjective - Date & Time of Evaluation Date of Evaluation: 02/13/17 Time of Evaluation: 07:10 - Subjective Subjective: Patient seen and examined at bedside. Reports he had elevated glucose accucheck overnight which he attributes to some jello and sweets he had after dinner. SOB persists with mild improvement. He is slowly able to walk to the bathroom and his fatigue on exertion is also mildly improved. Tolerating PO diet, has normal urine and stool output. Sputum production has decreased. Objective - Vital Signs/Intake and Output Vital Signs (last 24 hours): Temp Pulse Resp BP Pulse Ox 97.6 F 103 H 18 115/78 97 02/13/17 08:12 02/13/17 08:12 02/13/17 08:12 02/13/17 09:14 02/13/17 08:12 - Medications Medications: Current Medications Albuterol/Ipratropium (Duoneb 3 Mg/0.5 Mg (3 Ml) Ud) 3 ml INH RQ6 [facility] Last Admin: 02/13/17 07:55 Dose: 3 ml Dextrose (Dextrose 50% Inj) 0 ml IV STAT PRN; Protocol PRN Reason: Hyglycemia Protocol Dextrose (Glutose 15) 0 gm PO ONCE PRN; Protocol PRN Reason: Hypoglycemia Protocol Digoxin (Lanoxin) 0.25 mg PO DAILY [facility] Last Admin: 02/13/17 09:14 Dose: 0.25 mg Finasteride (Proscar) 5 mg PO DAILY [facility] Last Admin: 02/13/17 09:15 Dose: 5 mg Furosemide (Lasix) 40 mg IVP DAILY [facility] Last Admin: 02/13/17 09:14 Dose: 40 mg Gabapentin (Neurontin) 100 mg PO HS [facility] Last Admin: 02/12/17 23:06 Dose: 100 mg Glucagon (Glucagen Diagnostic Kit) 0 mg IM STAT PRN; Protocol PRN Reason: Hypoglycemia Protocol Guaifenesin/Dextromethorphan (Robitussin Dm) 10 ml PO Q6 PRN PRN Reason: Cough Last Admin: 02/11/17 19:43 Dose: 10 ml Vancomycin HCl 1 gm/ Sodium (Chloride) 250 mls @ 166.667 mls/hr IVPB Q12 [facility] Last Admin: 02/13/17 09:17 Dose: 166.667 mls/hr Piperacillin Sod/Tazobactam Sod (Zosyn 3.375 Gm Iv Premix) 3.375 gm in 50 mls @ 50 mls/hr IVPB Q6 [facility] Last Admin: 02/13/17 09:28 Dose: 50 mls/hr Methylprednisolone 60 mg/ (Sodium Chloride) 50 mls @ 100 mls/hr IVPB Q12 [facility] Last Admin: 02/13/17 09:19 Dose: 100 mls/hr Insulin Detemir (Levemir) 8 units SC HS [facility] Last Admin: 02/12/17 22:26 Dose: 8 units Insulin Detemir (Levemir) 8 units SC BRK [facility] Last Admin: 02/13/17 09:15 Dose: 8 u Insulin Human Regular (Humulin R) 0 units SC TIDAC [facility] PRN Reason: Protocol Last Admin: 02/12/17 16:53 Dose: 1 units Metformin HCl (Glucophage) 500 mg PO BID [facility] Last Admin: 02/13/17 09:14 Dose: 500 mg Metoprolol Tartrate (Lopressor) 12.5 mg PO Q12 [facility] Montelukast Sodium (Singulair) 10 mg PO DAILY [facility] Last Admin: 02/13/17 09:15 Dose: 10 mg Pantoprazole Sodium (Protonix Ec Tab) 40 mg PO DAILY [facility] Last Admin: 02/13/17 09:15 Dose: 40 mg Spironolactone (Aldactone) 25 mg PO DAILY [facility] Last Admin: 02/13/17 09:13 Dose: 25 mg Tiotropium [place] (Spiriva) 18 mcg INH DAILY [facility] Last Admin: 02/13/17 09:16 Dose: 18 mcg Warfarin Sodium (Coumadin) 2 mg PO QD5 [facility] PRN Reason: Protocol Stop: 02/13/17 17:01 - Labs Labs: 02/13/17 05:00 02/13/17 05:00 PT 26.9 Seconds (9.8-13.1) H 02/13/17 05:00 INR 2.3 (0.9-1.2) H 02/13/17 05:00 APTT 40.5 Seconds (25.6-37.1) H 02/10/17 06:00 - Constitutional Appears: Older Than Stated Age, Other - Head Exam Head Exam: ATRAUMATIC, NORMOCEPHALIC - Eye Exam Eye Exam: EOMI, PERRL - ENT Exam ENT Exam: Mucous Membranes Moist - Neck Exam Neck Exam: Full ROM. absent: Lymphadenopathy - Respiratory Exam Respiratory Exam: Rhonchi (diffuse). absent: Chest Wall Tenderness Additional comments: barrel chest - Cardiovascular Exam Cardiovascular Exam: Gallop, REGULAR RHYTHM, +S1, +S2 - GI/Abdominal Exam GI & Abdominal Exam: Soft, Normal Bowel Sounds. absent: Distended, Tenderness - Extremities Exam Extremities Exam: Full ROM. absent: Calf Tenderness, Pedal Edema - Back Exam Back Exam: absent: CVA tenderness (L), CVA tenderness (R) - Neurological Exam Neurological Exam: Alert, Awake, Oriented x3 - Psychiatric Exam Psychiatric exam: Normal Affect, Normal Mood - Skin Skin Exam: Dry, Intact, Warm Assessment and Plan - Assessment and Plan (Free Text) Assessment: 82 yr old M admitted for worsening SOB on exertion x 7days and found to have COPD exacerbation and severe systolic CHF. Patient has PMHx of Atrial Fibrillation, COPD, Systolic CHF, NIDDM, pulmonary fibrosis, Penile cancer, former Etoh abuse (quit 4 yrs ago), former smoker (30 pack years, quit 8 yrs ago ). Patients' SOB persists but has mildly improved, tachycardia is improving with medical treatment adjusted by Cardiology. Pulmonology on board will continue current tx. Echocardiogram showed LVEF of 20-25%. Day 5 of IV antibiotics. ID on board, sputum culture resulted Psuedomona aerug. COPD Exacerbation -acute, symptoms persists but slowly improving: SOB/increased sputum production -Duoneb 3 ml Inh Q6h PRN for SOB -tapered Methylprednisolone to 60 mg IV Q12H [facility] -continue home meds: Singulair 10mg PO QD, adjusted Spiriva to 18 mcg INH QD, -Supplemental O2 via nasal cannula to maintain O2 sat between 88-92%, BIPAP PRN for O2 sat < 88% -f/u results 6min Walking Pulse Ox test Community Acquired Pneumonia -acute, leukocytosis resolved -CXR: suspected right basilar pneumonia - Vancomycin 1gm IV QD and Zosyn 3.375gm IV Q6 (Day 5) -sputum culture: positive for Psuedomona aerug. Congestive Heart Failure -Systolic (Severe) -chronic, ProBNP 5620 -continue home meds: Furosemide 40mg IV QD, Spironolactone 25mg PO QD -Cardiology consult appreciated-Dr. Godfrey: d/c Amiodarone (see note) -Echocardiogram: LVEF 20-25% , severely impaired systolic function, severe MR and severe Pulm HTN(see full report) Atrial Fibrillation -stable, chronic -EKG showed Atrial flutter with 2:1 conduction -Cardiology consult appreciated-Dr. Godfrey: d/c Amiodarone (see note); Digoxin 0.25mg PO QD, start Metoprolol 12.5mg PO Q12H -INR therapeutic 2.6 -continue home med Diltiazem 180mg PO QD, adjusted Warfarin 2 mg PO QD5 NIDDM -uncontrolled, chronic, HbA1c 8.4 -continue home med: Metformin 500 mg PO BID -Regular Human Insulin SC ACHS low dose protocol -started Insulin Detemir 8 units SC with BRK and 8 units SC HS -Gabapentin 100mg PO QHS for diabetic peripheral neuropathy -hypoglycemia protocol -lipid panel triglyc 62/ chol 137/ LDL 76/ HDL 35 Anemia of Chronic Disease -stable, chronic, likely secondary to COPD/Heart Failure -H/H: 10.0/31.2 MCV 85.3 RDW 18.6 -Iron 17, TIBC 235, transferrin 170, ferritin 97.5, C-reactive protein elevated , ESR 67 DVT/GI prophylaxis -SCD's for now, as patient is anticoagulated with Warfarin (INR within therapeutic range) -Protonix 40mg PO QD <Luis Garcia - Last Filed: 02/14/17 06:48> Objective - Vital Signs/Intake and Output Vital Signs (last 24 hours): Temp Pulse Resp BP Pulse Ox 97.6 F 56 L 18 135/74 96 02/14/17 05:14 02/14/17 05:14 02/14/17 05:14 02/14/17 05:14 02/14/17 05:14 - Medications Medications: Current Medications Albuterol/Ipratropium (Duoneb 3 Mg/0.5 Mg (3 Ml) Ud) 3 ml INH RQ6 PRN PRN Reason: Shortness of Breath Dextrose (Dextrose 50% Inj) 0 ml IV STAT PRN; Protocol PRN Reason: Hyglycemia Protocol Dextrose (Glutose 15) 0 gm PO ONCE PRN; Protocol PRN Reason: Hypoglycemia Protocol Digoxin (Lanoxin) 0.25 mg PO DAILY [facility] Last Admin: 02/13/17 09:14 Dose: 0.25 mg Finasteride (Proscar) 5 mg PO DAILY [facility] Last Admin: 02/13/17 09:15 Dose: 5 mg Furosemide (Lasix) 40 mg IVP DAILY [facility] Last Admin: 02/13/17 09:14 Dose: 40 mg Gabapentin (Neurontin) 100 mg PO HS [facility] Last Admin: 02/13/17 22:13 Dose: 100 mg Glucagon (Glucagen Diagnostic Kit) 0 mg IM STAT PRN; Protocol PRN Reason: Hypoglycemia Protocol Guaifenesin/Dextromethorphan (Robitussin Dm) 10 ml PO Q6 PRN PRN Reason: Cough Last Admin: 02/11/17 19:43 Dose: 10 ml Vancomycin HCl 1 gm/ Sodium (Chloride) 250 mls @ 166.667 mls/hr IVPB Q12 [facility] Last Admin: 02/13/17 22:14 Dose: 166.667 mls/hr Methylprednisolone 60 mg/ (Sodium Chloride) 50 mls @ 100 mls/hr IVPB Q12 [facility] Last Admin: 02/13/17 22:13 Dose: 100 mls/hr Meropenem 1 gm/ Sodium (Chloride) 100 mls @ 100 mls/hr IVPB Q12 [facility] Last Admin: 02/13/17 21:12 Dose: 100 mls/hr Insulin Detemir (Levemir) 8 units SC HS [facility] Last Admin: 02/13/17 22:11 Dose: 8 units Insulin Detemir (Levemir) 8 units SC BRK [facility] Last Admin: 02/13/17 09:15 Dose: 8 u Insulin Human Regular (Humulin R) 0 units SC TIDAC [facility] PRN Reason: Protocol Last Admin: 02/13/17 17:52 Dose: 1 units Metformin HCl (Glucophage) 500 mg PO BID [facility] Last Admin: 02/13/17 17:52 Dose: 500 mg Metoprolol Tartrate (Lopressor) 12.5 mg PO Q12 [facility] Last Admin: 02/13/17 22:08 Dose: 12.5 mg Montelukast Sodium (Singulair) 10 mg PO DAILY [facility] Last Admin: 02/13/17 09:15 Dose: 10 mg Pantoprazole Sodium (Protonix Ec Tab) 40 mg PO DAILY [facility] Last Admin: 02/13/17 09:15 Dose: 40 mg Spironolactone (Aldactone) 25 mg PO DAILY [facility] Last Admin: 02/13/17 09:13 Dose: 25 mg Tiotropium [place] (Spiriva) 18 mcg INH DAILY [facility] Last Admin: 02/13/17 09:16 Dose: 18 mcg - Labs Labs: 02/13/17 05:00 02/13/17 05:00 PT 26.9 Seconds (9.8-13.1) H 02/13/17 05:00 INR 2.3 (0.9-1.2) H 02/13/17 05:00 APTT 40.5 Seconds (25.6-37.1) H 02/10/17 06:00 Attending/Attestation - Attestation I have personally seen and examined this patient.: Yes I have fully participated in the care of the patient.: Yes I have reviewed all pertinent clinical information, including history, physical exam and plan: Yes
[2017-02-13] MEDS ORDERED: Albuterol-Ipratrop 3 mg / 0.5 (3 ml) UD INH PRN (12:30)
[2017-02-13] MEDS: Insulin Regular 100 units/ml SC SCH ×3 (13:02→17:52)
--- NOTE | 2017-02-13 20:30 | CP.PCM.PN ---
Subjective - Date & Time of Evaluation Date of Evaluation: 02/13/17 Time of Evaluation: 20:25 - Subjective Subjective: I D NOTE PATIENT C URINE POSITIVE FOR PSEUDOMONAS THAT HAS BORDERLINE SENSITIVITIES TO CARBAPENEMS AND MAXIPEME HAVE INITIATED TREATMENT C MEROPENEM FULL CONSULT TO FOLLOW Objective - Vital Signs/Intake and Output Vital Signs (last 24 hours): Temp Pulse Resp BP Pulse Ox 97.7 F 68 20 128/68 96 02/13/17 19:10 02/13/17 19:10 02/13/17 19:10 02/13/17 19:10 02/13/17 19:10 - Medications Medications: Current Medications Albuterol/Ipratropium (Duoneb 3 Mg/0.5 Mg (3 Ml) Ud) 3 ml INH RQ6 PRN PRN Reason: Shortness of Breath Dextrose (Dextrose 50% Inj) 0 ml IV STAT PRN; Protocol PRN Reason: Hyglycemia Protocol Dextrose (Glutose 15) 0 gm PO ONCE PRN; Protocol PRN Reason: Hypoglycemia Protocol Digoxin (Lanoxin) 0.25 mg PO DAILY [facility] Last Admin: 02/13/17 09:14 Dose: 0.25 mg Finasteride (Proscar) 5 mg PO DAILY [facility] Last Admin: 02/13/17 09:15 Dose: 5 mg Furosemide (Lasix) 40 mg IVP DAILY [facility] Last Admin: 02/13/17 09:14 Dose: 40 mg Gabapentin (Neurontin) 100 mg PO HS [facility] Last Admin: 02/12/17 23:06 Dose: 100 mg Glucagon (Glucagen Diagnostic Kit) 0 mg IM STAT PRN; Protocol PRN Reason: Hypoglycemia Protocol Guaifenesin/Dextromethorphan (Robitussin Dm) 10 ml PO Q6 PRN PRN Reason: Cough Last Admin: 02/11/17 19:43 Dose: 10 ml Vancomycin HCl 1 gm/ Sodium (Chloride) 250 mls @ 166.667 mls/hr IVPB Q12 [facility] Last Admin: 02/13/17 09:17 Dose: 166.667 mls/hr Methylprednisolone 60 mg/ (Sodium Chloride) 50 mls @ 100 mls/hr IVPB Q12 [facility] Last Admin: 02/13/17 09:19 Dose: 100 mls/hr Meropenem 1 gm/ Sodium (Chloride) 100 mls @ 100 mls/hr IVPB Q12 [facility] Insulin Detemir (Levemir) 8 units SC HS [facility] Last Admin: 02/12/17 22:26 Dose: 8 units Insulin Detemir (Levemir) 8 units SC BRK [facility] Last Admin: 02/13/17 09:15 Dose: 8 u Insulin Human Regular (Humulin R) 0 units SC TIDAC [facility] PRN Reason: Protocol Last Admin: 02/13/17 17:52 Dose: 1 units Metformin HCl (Glucophage) 500 mg PO BID [facility] Last Admin: 02/13/17 17:52 Dose: 500 mg Metoprolol Tartrate (Lopressor) 12.5 mg PO Q12 [facility] Last Admin: 02/13/17 13:03 Dose: 12.5 mg Montelukast Sodium (Singulair) 10 mg PO DAILY [facility] Last Admin: 02/13/17 09:15 Dose: 10 mg Pantoprazole Sodium (Protonix Ec Tab) 40 mg PO DAILY [facility] Last Admin: 02/13/17 09:15 Dose: 40 mg Spironolactone (Aldactone) 25 mg PO DAILY [facility] Last Admin: 02/13/17 09:13 Dose: 25 mg Tiotropium [place] (Spiriva) 18 mcg INH DAILY [facility] Last Admin: 02/13/17 09:16 Dose: 18 mcg - Labs Labs: 02/13/17 05:00 02/13/17 05:00 PT 26.9 Seconds (9.8-13.1) H 02/13/17 05:00 INR 2.3 (0.9-1.2) H 02/13/17 05:00 APTT 40.5 Seconds (25.6-37.1) H 02/10/17 06:00
[2017-02-13] MEDS: Meropenem 1 GM in Sodium Chloride 0.9% 100 ML IVPB SCH (21:12)
[2017-02-14 07:12] LABS: ALB/GLOB RATIO 1.3 (1.0-2.1); ALBUMIN 3.5 g/dL (3.5-5.0); ALT/SGPT 44 U/L (21-72); AST/SGOT 15 U/L (17-59); BLOOD UREA NITROGEN 44 mg/dl (9-20); CALCIUM 8.8 mg/dL (8.4-10.2); GFR AFRICAN-AMERICAN > 60; GFR NON-AFRICAN AMERICAN > 60
[2017-02-14 07:14] LABS: INR 1.9 (0.9-1.2); PROTHROMBIN TIME 21.8 Seconds (9.8-13.1)
--- NOTE | 2017-02-14 08:40 | CP.PCM.PN ---
Subjective - Date & Time of Evaluation Date of Evaluation: 02/14/17 Time of Evaluation: 08:20 - Subjective Subjective: Resting comfortably HR 90 BPM (Metoprolol 12.5 mg BID was added to his Rx yesterday) BP 110/70 mm Hg JVP flat, no oedema over feet Labs show stable BUN/ Creatinin and electrolytes INR 1.9 (Warfarin ordered) May go off telemetry. Objective - Vital Signs/Intake and Output Vital Signs (last 24 hours): Temp Pulse Resp BP Pulse Ox 97.9 F 90 18 127/64 96 02/14/17 08:19 02/14/17 08:19 02/14/17 08:19 02/14/17 08:19 02/14/17 08:19 - Medications Medications: Current Medications Albuterol/Ipratropium (Duoneb 3 Mg/0.5 Mg (3 Ml) Ud) 3 ml INH RQ6 PRN PRN Reason: Shortness of Breath Dextrose (Dextrose 50% Inj) 0 ml IV STAT PRN; Protocol PRN Reason: Hyglycemia Protocol Dextrose (Glutose 15) 0 gm PO ONCE PRN; Protocol PRN Reason: Hypoglycemia Protocol Digoxin (Lanoxin) 0.25 mg PO DAILY [facility] Last Admin: 02/13/17 09:14 Dose: 0.25 mg Docusate Sodium (Colace) 100 mg PO BID PRN PRN Reason: Constipation Finasteride (Proscar) 5 mg PO DAILY [facility] Last Admin: 02/13/17 09:15 Dose: 5 mg Furosemide (Lasix) 40 mg IVP DAILY [facility] Last Admin: 02/13/17 09:14 Dose: 40 mg Gabapentin (Neurontin) 100 mg PO HS [facility] Last Admin: 02/13/17 22:13 Dose: 100 mg Glucagon (Glucagen Diagnostic Kit) 0 mg IM STAT PRN; Protocol PRN Reason: Hypoglycemia Protocol Guaifenesin/Dextromethorphan (Robitussin Dm) 10 ml PO Q6 PRN PRN Reason: Cough Last Admin: 02/11/17 19:43 Dose: 10 ml Vancomycin HCl 1 gm/ Sodium (Chloride) 250 mls @ 166.667 mls/hr IVPB Q12 [facility] Last Admin: 02/13/17 22:14 Dose: 166.667 mls/hr Methylprednisolone 60 mg/ (Sodium Chloride) 50 mls @ 100 mls/hr IVPB Q12 [facility] Last Admin: 02/13/17 22:13 Dose: 100 mls/hr Meropenem 1 gm/ Sodium (Chloride) 100 mls @ 100 mls/hr IVPB Q12 [facility] Last Admin: 02/13/17 21:12 Dose: 100 mls/hr Insulin Detemir (Levemir) 8 units SC HS [facility] Last Admin: 02/13/17 22:11 Dose: 8 units Insulin Detemir (Levemir) 8 units SC BRK [facility] Last Admin: 02/13/17 09:15 Dose: 8 u Insulin Human Regular (Humulin R) 0 units SC TIDAC [facility] PRN Reason: Protocol Last Admin: 02/13/17 17:52 Dose: 1 units Metformin HCl (Glucophage) 500 mg PO BID [facility] Last Admin: 02/13/17 17:52 Dose: 500 mg Metoprolol Tartrate (Lopressor) 12.5 mg PO Q12 [facility] Last Admin: 02/13/17 22:08 Dose: 12.5 mg Montelukast Sodium (Singulair) 10 mg PO DAILY [facility] Last Admin: 02/13/17 09:15 Dose: 10 mg Pantoprazole Sodium (Protonix Ec Tab) 40 mg PO DAILY [facility] Last Admin: 02/13/17 09:15 Dose: 40 mg Spironolactone (Aldactone) 25 mg PO DAILY [facility] Last Admin: 02/13/17 09:13 Dose: 25 mg Tiotropium [place] (Spiriva) 18 mcg INH DAILY [facility] Last Admin: 02/13/17 09:16 Dose: 18 mcg Warfarin Sodium (Coumadin) 3 mg PO QD5 [facility] PRN Reason: Protocol Stop: 02/14/17 17:01 - Labs Labs: 02/13/17 05:00 02/14/17 05:15 PT 21.8 Seconds (9.8-13.1) H D 02/14/17 05:15 INR 1.9 (0.9-1.2) H 02/14/17 05:15 APTT 40.5 Seconds (25.6-37.1) H 02/10/17 06:00
[2017-02-14] MEDS: Insulin Regular 100 units/ml SC SCH ×2 (08:42→12:27)
[2017-02-14] MEDS: Digoxin 250 mcg (0.25 mg) Tab PO SCH (08:43)
[2017-02-14] MEDS: Pantoprazole 40 mg EC Tab PO SCH (08:44)
[2017-02-14] MEDS: Tiotropium 18 mcg Cap For Inhalation INH SCH (08:44)
[2017-02-14] MEDS: Meropenem 1 GM in Sodium Chloride 0.9% 100 ML IVPB SCH (08:45)
[2017-02-14] MEDS: methylPREDNISolone 60 MG in Sodium Chloride 0.9% 50 ML IVPB SCH (08:46)
[2017-02-14 08:47] VITALS: PULSE 90
[2017-02-14] MEDS: Insulin Detemir 100 Units/ml Inj SC SCH (08:53)
--- NOTE | 2017-02-14 10:17 | PQF GENQUE ---
This form is a permanent part of the medical record 02/14/17 Dr. Webster, Would you please further clarify the type of pneumonia if known. Admitted with sob and a productive cough. WBC 25.6 with a L shift. Afebrile. CXR : Suspected R basilar pneumonia. Diagnoses include COPD exacerbation and CAP. Sputum CS growing Pseudomonas Aeruginosa,Treated with multiple IVAB in the ER. Current orders: Merrem and Vancomycin. Clarification of your documentation is requested to better reflect the severity of illness and intensity of treatment of your patient. PHYSICIAN'S RESPONSE 1. Please specify type of pneumonia in the progress notes: [] Aspiration pneumonia [X] Bacterial (specify organism) __PSEUDOMONAS [] Bronchopneumonia (specify organism) [] Interstitual pneumonia [] Organizing pneumonia/BOOP [] Pneumonia with influenza, campbell flu, or H1N1 flu [] Viral pneumonia [] Other pneumonia (specify organism or type) [] Clinically unable to determine [] Unknown Note: Probable and suspected conditions can be coded as if they exist if still documented at the time of discharge. 2. Sputum culture grew PSEUDOMONAS . Please document the causal relationship if any to the pneumonia being treated. 3. Please specify the organism causing the pneumonia Note: CAP, HAP, and HCAP indicate where the pneumonia was acquired, not a specific type Based on your medical judgment of the clinical indicators outlined above please clarify the following: [X] Practitioner response [] If unable to determine, please check the box, sign and date. Present On Admission (POA) Indicator: [X] Present at the time of admission [] Not present at the time of admission [] Clinically Undetermined In responding to this query, please exercise your independent professional judgment. The fact that a question is asked does not imply that any particular answer is desired or expected. Thank you for your clarification on this documentation. If you have any questions please call:ext [phone] * Thank you, Irene Garrett RN [facility]
--- NOTE | 2017-02-14 10:38 | RAD ---
HISTORY: pneumonia COMPARISON: 02/09/2017 and 02/13/2017 TECHNIQUE: Chest PA and lateral FINDINGS: LUNGS: There is improvement in the right lower lobe infiltrate and bilateral interstitial infiltrates. There is minimal blunting of the costophrenic angles and posterior costophrenic sulcus bilaterally PLEURA: As above CARDIOVASCULAR: Normal. OSSEOUS STRUCTURES: No significant abnormalities. VISUALIZED UPPER ABDOMEN: Normal. OTHER FINDINGS: None. IMPRESSION: There is improvement in the right lower lobe infiltrate and bilateral interstitial infiltrates. There is minimal blunting of the costophrenic angles and posterior costophrenic sulcus bilaterally
--- NOTE | 2017-02-14 11:30 | CP.PCM.PN ---
Subjective - Date & Time of Evaluation Date of Evaluation: 02/14/17 Time of Evaluation: 11:34 - Subjective Subjective: TRANSFER TO TCU HALTED BECAUSE OF TACHYCARDIA COUGH LESS NO CHEST PAINS C/O R EAR PAIN Objective - Vital Signs/Intake and Output Vital Signs (last 24 hours): Temp Pulse Resp BP Pulse Ox 97.9 F 90 18 127/64 96 02/14/17 08:19 02/14/17 08:43 02/14/17 08:19 02/14/17 08:43 02/14/17 08:19 - Medications Medications: Current Medications Albuterol/Ipratropium (Duoneb 3 Mg/0.5 Mg (3 Ml) Ud) 3 ml INH RQ6 PRN PRN Reason: Shortness of Breath Last Admin: 02/14/17 10:46 Dose: 3 ml Dextrose (Dextrose 50% Inj) 0 ml IV STAT PRN; Protocol PRN Reason: Hyglycemia Protocol Dextrose (Glutose 15) 0 gm PO ONCE PRN; Protocol PRN Reason: Hypoglycemia Protocol Digoxin (Lanoxin) 0.25 mg PO DAILY [facility] Last Admin: 02/14/17 08:43 Dose: 0.25 mg Docusate Sodium (Colace) 100 mg PO BID PRN PRN Reason: Constipation Finasteride (Proscar) 5 mg PO DAILY [facility] Last Admin: 02/14/17 08:44 Dose: 5 mg Furosemide (Lasix) 40 mg IVP DAILY [facility] Last Admin: 02/14/17 08:43 Dose: 40 mg Gabapentin (Neurontin) 100 mg PO HS [facility] Last Admin: 02/13/17 22:13 Dose: 100 mg Glucagon (Glucagen Diagnostic Kit) 0 mg IM STAT PRN; Protocol PRN Reason: Hypoglycemia Protocol Guaifenesin/Dextromethorphan (Robitussin Dm) 10 ml PO Q6 PRN PRN Reason: Cough Last Admin: 02/11/17 19:43 Dose: 10 ml Vancomycin HCl 1 gm/ Sodium (Chloride) 250 mls @ 166.667 mls/hr IVPB Q12 [facility] Last Admin: 02/14/17 08:45 Dose: 166.667 mls/hr Methylprednisolone 60 mg/ (Sodium Chloride) 50 mls @ 100 mls/hr IVPB Q12 [facility] Last Admin: 02/14/17 08:46 Dose: 100 mls/hr Meropenem 1 gm/ Sodium (Chloride) 100 mls @ 100 mls/hr IVPB Q12 [facility] Last Admin: 02/14/17 08:45 Dose: 100 mls/hr Insulin Detemir (Levemir) 8 units SC HS [facility] Last Admin: 02/13/17 22:11 Dose: 8 units Insulin Detemir (Levemir) 8 units SC BRK [facility] Last Admin: 02/14/17 08:53 Dose: 8 u Insulin Human Regular (Humulin R) 0 units SC TIDAC [facility] PRN Reason: Protocol Last Admin: 02/14/17 08:42 Dose: Not Given Metformin HCl (Glucophage) 500 mg PO BID [facility] Last Admin: 02/14/17 08:42 Dose: 500 mg Metoprolol Tartrate (Lopressor) 12.5 mg PO Q12 [facility] Last Admin: 02/14/17 08:43 Dose: 12.5 mg Montelukast Sodium (Singulair) 10 mg PO DAILY [facility] Last Admin: 02/14/17 08:44 Dose: 10 mg Pantoprazole Sodium (Protonix Ec Tab) 40 mg PO DAILY [facility] Last Admin: 02/14/17 08:44 Dose: 40 mg Spironolactone (Aldactone) 25 mg PO DAILY [facility] Last Admin: 02/14/17 08:42 Dose: 25 mg Tiotropium [place] (Spiriva) 18 mcg INH DAILY [facility] Last Admin: 02/14/17 08:44 Dose: 18 mcg Warfarin Sodium (Coumadin) 3 mg PO QD5 [facility] PRN Reason: Protocol Stop: 02/14/17 17:01 - Labs Labs: 02/13/17 05:00 02/14/17 05:15 PT 21.8 Seconds (9.8-13.1) H D 02/14/17 05:15 INR 1.9 (0.9-1.2) H 02/14/17 05:15 APTT 40.5 Seconds (25.6-37.1) H 02/10/17 06:00 - Constitutional Appears: No Acute Distress - Head Exam Head Exam: ATRAUMATIC, NORMAL INSPECTION, NORMOCEPHALIC - Eye Exam Eye Exam: EOMI, Normal appearance, PERRL Pupil Exam: NORMAL ACCOMODATION, PERRL - ENT Exam ENT Exam: Mucous Membranes Moist, Normal Exam - Neck Exam Neck Exam: Full ROM, Normal Inspection. absent: Lymphadenopathy - Respiratory Exam Respiratory Exam: Prolonged Expiratory Phase, Rales, NORMAL BREATHING PATTERN - Cardiovascular Exam Cardiovascular Exam: REGULAR RHYTHM, +S1, +S2. absent: Murmur Additional comments: 90/M - GI/Abdominal Exam GI & Abdominal Exam: Soft, Normal Bowel Sounds. absent: Tenderness - Rectal Exam Rectal Exam: NORMAL INSPECTION - Extremities Exam Extremities Exam: Full ROM, Normal Capillary Refill, Normal Inspection. absent : Joint Swelling, Pedal Edema - Back Exam Back Exam: NORMAL INSPECTION - Neurological Exam Neurological Exam: Alert, Awake, CN II-XII Intact, Normal Gait, Oriented x3 - Psychiatric Exam Psychiatric exam: Normal Affect, Normal Mood - Skin Skin Exam: Dry, Intact, Normal Color, Warm Assessment and Plan - Assessment and Plan (Free Text) Assessment: CHF-IMPROVED PSEUDOMONAS PNEUMONIA COPD-IMPROVED TACHYCARDIA-PROBABLY DUE TO DUONEB Plan: CHANGE DUONEB TO XOPONEX CORTISPORIN FOR EAR PAINS MAY GO TO TCU
--- NOTE | 2017-02-14 14:58 | CP.PCM.DIS ---
Addendum entered and electronically signed by Zhanna Oneil MD 02/14/17 20 :03: Per conversation with Dr. Godfrey, may start Lisinopril 5mg , follow potassium closely. Original Note: <Zhanna Oneil - Last Filed: 02/14/17 19:27> Provider - Provider Date of Admission: 02/09/17 18:33 Attending physician: Chris Aguirre MD Primary care physician: Dr. Aguirre Consults: Dr. Godfrey-cardiology, Dr. Painting-ID, Dr. Webster- pulmonology Time Spent in preparation of Discharge (in minutes): 30 Diagnosis - Discharge Diagnosis (1) Community acquired bacterial pneumonia Status: Acute Priority: Medium (2) COPD exacerbation Status: Acute Priority: Medium (3) CHF (congestive heart failure), NYHA class IV Status: Chronic Priority: High (4) Uncontrolled diabetes mellitus Status: Acute Priority: Medium (5) Chronic a-fib Status: Chronic Priority: Medium (6) Atrial flutter Status: Acute Priority: Medium Hospital Course - Lab Results Lab Results: Micro Results 02/09/17 19:45 Blood-Venous Blood Culture - Preliminary NO GROWTH AFTER 4 DAYS 02/11/17 10:05 Urine Urine Culture - Final Yeast Species 02/10/17 08:19 Sputum Gram Stain - Final 02/10/17 08:19 Sputum Sputum Culture - Final Pseudomonas Aeruginosa Most Recent Lab Values WBC 9.2 K/uL (4.8-10.8) 02/13/17 05:00 RBC 3.71 Mil/uL (4.40-5.90) L 02/13/17 05:00 Hgb 10.2 g/dL (12.0-18.0) L 02/13/17 05:00 Hct 31.9 % (35.0-51.0) L 02/13/17 05:00 MCV 85.9 fl (80.0-94.0) 02/13/17 05:00 MCH 27.5 pg (27.0-31.0) 02/13/17 05:00 MCHC 32.1 g/dL (33.0-37.0) L 02/13/17 05:00 RDW 18.6 % (11.5-14.5) H 02/13/17 05:00 Plt Count 256 K/uL (130-400) 02/13/17 05:00 MPV 8.3 fl (7.2-11.7) 02/09/17 18:06 Neut % (Auto) 83.1 % (50.0-75.0) H 02/09/17 18:06 Lymph % (Auto) 4.0 % (20.0-40.0) L 02/09/17 18:06 [place] % (Auto) 5.1 % (0.0-10.0) 02/09/17 18:06 Eos % (Auto) 7.2 % (0.0-4.0) H 02/09/17 18:06 Baso % (Auto) 0.6 % (0.0-2.0) 02/09/17 18:06 Neut # 21.2 K/uL (1.8-7.0) H 02/09/17 18:06 Lymph # 1.0 K/uL (1.0-4.3) 02/09/17 18:06 [place] # 1.3 K/uL (0.0-0.8) H 02/09/17 18:06 Eos # 1.8 K/uL (0.0-0.7) H 02/09/17 18:06 Baso # 0.1 K/uL (0.0-0.2) 02/09/17 18:06 Neutrophils % (Manual) 80 % (42-75) H 02/09/17 18:06 Band Neutrophils % 1 % (0-2) 02/09/17 18:06 Lymphocytes % (Manual) 6 % (20-50) L 02/09/17 18:06 Monocytes % (Manual) 4 % (0-10) 02/09/17 18:06 Eosinophils % (Manual) 7 % (0-7) 02/09/17 18:06 Basophils % (Manual) 1 % (0-2) 02/09/17 18:06 Metamyelocytes % 1 % (0-0) H 02/09/17 18:06 Platelet Estimate Normal (NORMAL) 02/09/17 18:06 Large Platelets Present 02/09/17 18:06 Poikilocytosis (manual Slight 02/09/17 18:06 Anisocytosis (manual) Slight 02/09/17 18:06 ESR 67 mm/hr (0-20) H 02/11/17 05:00 PT 21.8 Seconds (9.8-13.1) H D 02/14/17 05:15 INR 1.9 (0.9-1.2) H 02/14/17 05:15 APTT 40.5 Seconds (25.6-37.1) H 02/10/17 06:00 pCO2 34 mm/Hg (35-45) L 02/09/17 18:25 pO2 135 mm/Hg (80-100) H 02/09/17 18:25 HCO3 22.6 mmol/L (21-28) 02/09/17 18:25 ABG pH 7.40 (7.35-7.45) 02/09/17 18:25 ABG Total CO2 22.1 mmol/L (22-28) 02/09/17 18:25 ABG O2 Saturation 99.1 % (95-98) H 02/09/17 18:25 ABG Base Excess -3.0 mmol/L (-2.0-3.0) L 02/09/17 18:25 Ceasar Test Yes 02/09/17 18:25 ABG Potassium 5.8 mmol/L (3.6-5.2) H 02/09/17 18:25 A-a O2 Difference 108.0 mm/Hg 02/09/17 18:25 Sodium 129.0 mmol/L (132-148) L 02/09/17 18:25 Chloride 99.0 mmol/L (98-107) 02/09/17 18:25 Glucose 244 mg/dL (75-110) H 02/09/17 18:25 Lactate 1.5 mmol/L (0.7-2.1) 02/09/17 18:25 FiO2 40.0 % 02/09/17 18:25 Sodium 140 mmol/l (132-148) 02/14/17 05:15 Potassium 4.6 MMOL/L (3.6-5.0) 02/14/17 05:15 Chloride 101 mmol/L (98-107) 02/14/17 05:15 Carbon Dioxide 29 mmol/L (22-30) 02/14/17 05:15 Anion Gap 14 (10-20) 02/14/17 05:15 BUN 44 mg/dl (9-20) H 02/14/17 05:15 Creatinine 1.1 mg/dL (0.8-1.5) 02/14/17 05:15 Est GFR ( Amer) > 60 02/14/17 05:15 Est GFR (Non-Af Amer) > 60 02/14/17 05:15 POC Glucose (mg/dL) 198 mg/dL (65-110) H 02/14/17 11:32 Random Glucose 146 mg/dL (75-110) H 02/14/17 05:15 Hemoglobin A1c 8.4 % (4.2-6.5) H 02/10/17 06:00 Calcium 8.8 mg/dL (8.4-10.2) 02/14/17 05:15 Iron 17 ug/dL (49-181) L 02/11/17 05:00 TIBC 235 ug/dL (250-450) L 02/11/17 05:00 % Saturation 7 % (20-55) L 02/11/17 05:00 Transferrin 170.14 mg/dL (206-381) L 02/11/17 05:00 Ferritin 97.5 ng/mL 02/11/17 05:00 Total Bilirubin 0.3 mg/dl (0.2-1.3) 02/14/17 05:15 AST 15 U/L (17-59) L 02/14/17 05:15 ALT 44 U/L (21-72) 02/14/17 05:15 Alkaline Phosphatase 60 U/L (38-126) 02/14/17 05:15 C-Reactive Prot, Quant 10.9 mg/dL (<0.8) H 02/11/17 05:00 NT-Pro-B Natriuret Pep 5620 pg/ml (0-900) H 02/09/17 18:47 Total Protein 6.2 G/DL (6.3-8.2) L 02/14/17 05:15 Albumin 3.5 g/dL (3.5-5.0) 02/14/17 05:15 Globulin 2.7 gm/dL (2.2-3.9) 02/14/17 05:15 Albumin/Globulin Ratio 1.3 (1.0-2.1) 02/14/17 05:15 Triglycerides 62 mg/DL (0-149) 02/10/17 06:00 Cholesterol 137 mg/dL (0-199) 02/10/17 06:00 LDL Cholesterol Direct 76 mg/dL (0-129) 02/10/17 06:00 HDL Cholesterol 35 MG/DL (30-70) 02/10/17 06:00 Procalcitonin 0.23 NG/ML (0.19-0.49) 02/11/17 10:29 Arterial Blood Potassium 5.8 mmol/L (3.6-5.2) H 02/09/17 18:25 Urine Color Yellow (YELLOW) 02/13/17 07:00 Urine Clarity Cloudy (Clear) 02/13/17 07:00 Urine pH 6.0 (5.0-8.0) 02/13/17 07:00 Ur Specific [place] 1.018 (1.003-1.030) 02/13/17 07:00 Urine Protein 30 mg/dL (NEGATIVE) 02/13/17 07:00 Urine Glucose (UA) >=500 mg/dL (Normal) 02/13/17 07:00 Urine Ketones Negative mg/dL (NEGATIVE) 02/13/17 07:00 Urine Blood Moderate (NEGATIVE) 02/13/17 07:00 Urine Nitrate Negative (NEGATIVE) 02/13/17 07:00 Urine Bilirubin Negative (NEGATIVE) 02/13/17 07:00 Urine Urobilinogen 0.2-1.0 mg/dL (0.2-1.0) 02/13/17 07:00 Ur Leukocyte Esterase Large Briseida/uL (Negative) 02/13/17 07:00 Urine RBC (Auto) 34 /hpf (0-3) H 02/13/17 07:00 Urine WBC Clumps (Auto) Few /hpf (NONE) H 02/13/17 07:00 Urine Microscopic WBC 409 /hpf (0-5) H 02/13/17 07:00 Ur Squamous Epith Cells 1 /hpf (0-5) 02/13/17 07:00 Urine Bacteria Rare (<OCC) 02/13/17 07:00 Hyaline Casts 0-2 /hpf (0-2) 02/10/17 19:11 Urine Yeast (Budding) Many /hpf (NEGATIVE) H 02/13/17 07:00 - Hospital Course Hospital Course: 82 yr old M discharged from med-surg after improvement of SOB on exertion secondary to COPD exacerbation, pneumonia and severe systolic CHF. Patient has PMHx Atrial Fibrillation, COPD, Systolic CHF, NIDDM, pulmonary fibrosis, Penile cancer, former Etoh abuse (quit 4 yrs ago), former smoker (40 pack years, quit 8 yrs ago). Patients SOB is mild, HR is controlled s/p medical treatment adjusted by Cardiology. Pulmonology on board will continue current tx. Echocardiogram showed LVEF of 20-25%. ID on board, sputum culture resulted Psuedomonas aerug. and antibiotics were adjusted :Day 6 of IV Vanco/ Day 2 of Meropenem. While inpatient, INR/PT order is required daily and Warfarin dose order is dependant on lab value. Patient is stable for discharge to TCU. - Date & Time of H&P Date of H&P: 02/09/17 Time of H&P: 19:53 Discharge Exam - Head Exam Head Exam: ATRAUMATIC, NORMOCEPHALIC - Eye Exam Eye Exam: EOMI, PERRL - ENT Exam ENT Exam: Mucous Membranes Moist - Neck Exam Neck exam: Full Rom - Respiratory Exam Respiratory Exam: Rhonchi (mild, diffuse). absent: Chest Wall Tenderness ( barrel chest) - Cardiovascular Exam Cardiovascular Exam: Gallop, REGULAR RHYTHM, +S1, +S2. absent: JVD - GI/Abdominal Exam GI & Abdominal Exam: Normal Bowel Sounds, Soft. absent: Tenderness - Extremities Exam Extremities exam: full ROM (no calf tenderness, no pedal edema) - Back Exam Back exam: absent: CVA tenderness (L), CVA tenderness (R) - Neurological Exam Neurological exam: Alert, CN II-XII Intact, Oriented x3 - Psychiatric Exam Psychiatric exam: Normal Affect, Normal Mood - Skin Skin Exam: Dry, Intact, Warm Discharge Plan - Discharge Medications Prescriptions: Warfarin [Coumadin] 3 mg PO QD5 #1 tab - Follow Up Plan Condition: FAIR Disposition: TRANSF TO SNF Instructions: Heart Failure (DC), COPD (Chronic Obstructive Pulmonary Disease) (DC), Dyspnea Scale and Exercise (DC) Additional Instructions: -Discharge to TCU -Follow up with your PMD Dr. Aguirre -Follow up with Dr. Godfrey-data analytics developer -Follow up with Dr. Webster-practice nurse Referrals: Woody Godfrey MD [Staff Provider] - Chris Aguirre MD [Family Provider] - Sina Webster MD [Staff Provider] - Clinical Quality Measures - CQM - Heart Failure Ejection Fraction: Less Than 40 % JED Inhibitor Prescribed: No Contraindication/Reason for not providing: Severe Systolic CHF Beta-Jose David Prescribed: Metoprolol Succinate Angiotensin II Receptor Jose David Prescribed: No Contraindication/Reason for not providing: Severe Systolic CHF AnticoagulationTherapy for Atrial Fibrillation/Atrialflutter: Yes Aldosterone Antagonist Prescribed: Yes Hydralazine Nitrate Prescribed: No Contraindication/Reason for not providing: CAD Follow Up Date (must be within 7 days from discharge): 02/15/17 (TCU) Follow Up Time: 09:00 - Date & Time of Discharge Summary Date of Discharge Summary: 02/14/17 Time of Discharge Summary: 19:41 <Luis Garcia - Last Filed: 02/17/17 07:06> Provider - Provider Date of Admission: 02/09/17 18:33 Attending physician: Chris Aguirre MD Hospital Course - Lab Results Lab Results: Micro Results 02/09/17 19:45 Blood-Venous Blood Culture - Final NO GROWTH AFTER 5 DAYS 02/09/17 19:45 Blood-Venous Gram Stain - Final TEST NOT PERFORMED 02/11/17 10:05 Urine Urine Culture - Final Yeast Species 02/10/17 08:19 Sputum Gram Stain - Final 02/10/17 08:19 Sputum Sputum Culture - Final Pseudomonas Aeruginosa Most Recent Lab Values WBC 9.2 K/uL (4.8-10.8) 02/13/17 05:00 RBC 3.71 Mil/uL (4.40-5.90) L 02/13/17 05:00 Hgb 10.2 g/dL (12.0-18.0) L 02/13/17 05:00 Hct 31.9 % (35.0-51.0) L 02/13/17 05:00 MCV 85.9 fl (80.0-94.0) 02/13/17 05:00 MCH 27.5 pg (27.0-31.0) 02/13/17 05:00 MCHC 32.1 g/dL (33.0-37.0) L 02/13/17 05:00 RDW 18.6 % (11.5-14.5) H 02/13/17 05:00 Plt Count 256 K/uL (130-400) 02/13/17 05:00 MPV 8.3 fl (7.2-11.7) 02/09/17 18:06 Neut % (Auto) 83.1 % (50.0-75.0) H 02/09/17 18:06 Lymph % (Auto) 4.0 % (20.0-40.0) L 02/09/17 18:06 [place] % (Auto) 5.1 % (0.0-10.0) 02/09/17 18:06 Eos % (Auto) 7.2 % (0.0-4.0) H 02/09/17 18:06 Baso % (Auto) 0.6 % (0.0-2.0) 02/09/17 18:06 Neut # 21.2 K/uL (1.8-7.0) H 02/09/17 18:06 Lymph # 1.0 K/uL (1.0-4.3) 02/09/17 18:06 [place] # 1.3 K/uL (0.0-0.8) H 02/09/17 18:06 Eos # 1.8 K/uL (0.0-0.7) H 02/09/17 18:06 Baso # 0.1 K/uL (0.0-0.2) 02/09/17 18:06 Neutrophils % (Manual) 80 % (42-75) H 02/09/17 18:06 Band Neutrophils % 1 % (0-2) 02/09/17 18:06 Lymphocytes % (Manual) 6 % (20-50) L 02/09/17 18:06 Monocytes % (Manual) 4 % (0-10) 02/09/17 18:06 Eosinophils % (Manual) 7 % (0-7) 02/09/17 18:06 Basophils % (Manual) 1 % (0-2) 02/09/17 18:06 Metamyelocytes % 1 % (0-0) H 02/09/17 18:06 Platelet Estimate Normal (NORMAL) 02/09/17 18:06 Large Platelets Present 02/09/17 18:06 Poikilocytosis (manual Slight 02/09/17 18:06 Anisocytosis (manual) Slight 02/09/17 18:06 ESR 67 mm/hr (0-20) H 02/11/17 05:00 PT 21.8 Seconds (9.8-13.1) H D 02/14/17 05:15 INR 1.9 (0.9-1.2) H 02/14/17 05:15 APTT 40.5 Seconds (25.6-37.1) H 02/10/17 06:00 pCO2 34 mm/Hg (35-45) L 02/09/17 18:25 pO2 135 mm/Hg (80-100) H 02/09/17 18:25 HCO3 22.6 mmol/L (21-28) 02/09/17 18:25 ABG pH 7.40 (7.35-7.45) 02/09/17 18:25 ABG Total CO2 22.1 mmol/L (22-28) 02/09/17 18:25 ABG O2 Saturation 99.1 % (95-98) H 02/09/17 18:25 ABG Base Excess -3.0 mmol/L (-2.0-3.0) L 02/09/17 18:25 Ceasar Test Yes 02/09/17 18:25 ABG Potassium 5.8 mmol/L (3.6-5.2) H 02/09/17 18:25 A-a O2 Difference 108.0 mm/Hg 02/09/17 18:25 Sodium 129.0 mmol/L (132-148) L 02/09/17 18:25 Chloride 99.0 mmol/L (98-107) 02/09/17 18:25 Glucose 244 mg/dL (75-110) H 02/09/17 18:25 Lactate 1.5 mmol/L (0.7-2.1) 02/09/17 18:25 FiO2 40.0 % 02/09/17 18:25 Sodium 140 mmol/l (132-148) 02/14/17 05:15 Potassium 4.6 MMOL/L (3.6-5.0) 02/14/17 05:15 Chloride 101 mmol/L (98-107) 02/14/17 05:15 Carbon Dioxide 29 mmol/L (22-30) 02/14/17 05:15 Anion Gap 14 (10-20) 02/14/17 05:15 BUN 44 mg/dl (9-20) H 02/14/17 05:15 Creatinine 1.1 mg/dL (0.8-1.5) 02/14/17 05:15 Est GFR ( Amer) > 60 02/14/17 05:15 Est GFR (Non-Af Amer) > 60 02/14/17 05:15 POC Glucose (mg/dL) 136 mg/dL (65-110) H 02/14/17 16:33 Random Glucose 146 mg/dL (75-110) H 02/14/17 05:15 Hemoglobin A1c 8.4 % (4.2-6.5) H 02/10/17 06:00 Calcium 8.8 mg/dL (8.4-10.2) 02/14/17 05:15 Iron 17 ug/dL (49-181) L 02/11/17 05:00 TIBC 235 ug/dL (250-450) L 02/11/17 05:00 % Saturation 7 % (20-55) L 02/11/17 05:00 Transferrin 170.14 mg/dL (206-381) L 02/11/17 05:00 Ferritin 97.5 ng/mL 02/11/17 05:00 Total Bilirubin 0.3 mg/dl (0.2-1.3) 02/14/17 05:15 AST 15 U/L (17-59) L 02/14/17 05:15 ALT 44 U/L (21-72) 02/14/17 05:15 Alkaline Phosphatase 60 U/L (38-126) 02/14/17 05:15 C-Reactive Prot, Quant 10.9 mg/dL (<0.8) H 02/11/17 05:00 NT-Pro-B Natriuret Pep 5620 pg/ml (0-900) H 02/09/17 18:47 Total Protein 6.2 G/DL (6.3-8.2) L 02/14/17 05:15 Albumin 3.5 g/dL (3.5-5.0) 02/14/17 05:15 Globulin 2.7 gm/dL (2.2-3.9) 02/14/17 05:15 Albumin/Globulin Ratio 1.3 (1.0-2.1) 02/14/17 05:15 Triglycerides 62 mg/DL (0-149) 02/10/17 06:00 Cholesterol 137 mg/dL (0-199) 02/10/17 06:00 LDL Cholesterol Direct 76 mg/dL (0-129) 02/10/17 06:00 HDL Cholesterol 35 MG/DL (30-70) 02/10/17 06:00 Procalcitonin 0.23 NG/ML (0.19-0.49) 02/11/17 10:29 Arterial Blood Potassium 5.8 mmol/L (3.6-5.2) H 02/09/17 18:25 Urine Color Yellow (YELLOW) 02/13/17 07:00 Urine Clarity Cloudy (Clear) 02/13/17 07:00 Urine pH 6.0 (5.0-8.0) 02/13/17 07:00 Ur Specific [place] 1.018 (1.003-1.030) 02/13/17 07:00 Urine Protein 30 mg/dL (NEGATIVE) 02/13/17 07:00 Urine Glucose (UA) >=500 mg/dL (Normal) 02/13/17 07:00 Urine Ketones Negative mg/dL (NEGATIVE) 02/13/17 07:00 Urine Blood Moderate (NEGATIVE) 02/13/17 07:00 Urine Nitrate Negative (NEGATIVE) 02/13/17 07:00 Urine Bilirubin Negative (NEGATIVE) 02/13/17 07:00 Urine Urobilinogen 0.2-1.0 mg/dL (0.2-1.0) 02/13/17 07:00 Ur Leukocyte Esterase Large Briseida/uL (Negative) 02/13/17 07:00 Urine RBC (Auto) 34 /hpf (0-3) H 02/13/17 07:00 Urine WBC Clumps (Auto) Few /hpf (NONE) H 02/13/17 07:00 Urine Microscopic WBC 409 /hpf (0-5) H 02/13/17 07:00 Ur Squamous Epith Cells 1 /hpf (0-5) 02/13/17 07:00 Urine Bacteria Rare (<OCC) 02/13/17 07:00 Hyaline Casts 0-2 /hpf (0-2) 02/10/17 19:11 Urine Yeast (Budding) Many /hpf (NEGATIVE) H 02/13/17 07:00 Attending/Attestation - Attestation I have personally seen and examined this patient.: Yes I have fully participated in the care of the patient.: Yes I have reviewed all pertinent clinical information, including history, physical exam and plan: Yes
[2017-02-14 15:38] VITALS: BP 143/75; PULSE 73; RESP 20; TEMP 97.3; O2SAT 97
[2017-02-14] MEDS ORDERED: Levalbuterol 1.25 MG/3 ML Inhal Soln UD INH SCH (16:00)
== END 2017-02-14 16:00 | DRG 190 ==
LOC: H.ER 17:49 → H.ERHOLD 18:33 → H.TEL 23:17
PROVIDERS: ADMIT Family Medicine; ATTEND Family Medicine
DX: J44.0 Chronic obstructive pulmonary disease with (acute) lower respiratory infection (principal); J15.1 Pneumonia due to Pseudomonas; E84.9 Cystic fibrosis, unspecified; I11.0 Hypertensive heart disease with heart failure; I45.89 Other specified conduction disorders; E11.42 Type 2 diabetes mellitus with diabetic polyneuropathy; I50.22 Chronic systolic (congestive) heart failure; I48.92 Unspecified atrial flutter; J84.10 Pulmonary fibrosis, unspecified; Z85.49 Personal history of malignant neoplasm of other male genital organs; J44.1 Chronic obstructive pulmonary disease with (acute) exacerbation; D63.8 Anemia in other chronic diseases classified elsewhere; R06.2 Wheezing; J20.9 Acute bronchitis, unspecified; E11.65 Type 2 diabetes mellitus with hyperglycemia; I25.10 Atherosclerotic heart disease of native coronary artery without angina pectoris; I25.2 Old myocardial infarction; I27.2 Other secondary pulmonary hypertension; I48.2 Chronic atrial fibrillation; Z79.01 Long term (current) use of anticoagulants; Z79.4 Long term (current) use of insulin; Z79.84 Long term (current) use of oral hypoglycemic drugs; R00.0 Tachycardia, unspecified; R79.82 Elevated C-reactive protein (CRP); Z87.891 Personal history of nicotine dependence

== ENCOUNTER 2017-02-14 16:02 | Inpatient (IN) | payer MEDICAID, OTHER ==
[2017-02-14 16:48] VITALS: BMI 19.3
[2017-02-14] MEDS ORDERED: Sodium Chloride 3% for Inhalation 4 ML VIAL.NEB IH PRN (17:18)
[2017-02-14] MEDS ORDERED: Glucagon Recombinant 1 mg Inj IM PRN (18:01)
[2017-02-14] MEDS ORDERED: Dextrose 50% SYRINGE Inj (50 ml) IV PRN (18:01)
[2017-02-14] MEDS ORDERED: methylPREDNISolone 40 MG in Sodium Chloride 0.9% 50 ML IVPB SCH (20:45)
[2017-02-14] MEDS: methylPREDNISolone 40 MG in Sodium Chloride 0.9% 50 ML IVPB SCH (21:31)
[2017-02-14] MEDS: Meropenem 1 GM in Sodium Chloride 0.9% 100 ML IVPB SCH (21:37)
[2017-02-14] MEDS: Insulin Detemir 100 Units/ml Inj SC SCH (21:39)
[2017-02-14] MEDS: Insulin Regular 100 units/ml SC SCH (21:41)
[2017-02-15] MEDS: Levalbuterol 1.25 MG/3 ML Inhal Soln UD INH SCH ×4 (00:29→23:21)
[2017-02-15] MEDS: Insulin Regular 100 units/ml SC SCH ×4 (07:38→21:56)
[2017-02-15 07:43] LABS: ALB/GLOB RATIO 1.2 (1.0-2.1); ALKALINE PHOSPHATASE 57 U/L (38-126); ALT/SGPT 40 U/L (21-72); AST/SGOT 17 U/L (17-59); BILIRUBIN,TOTAL 0.2 mg/dl (0.2-1.3); BLOOD UREA NITROGEN 44 mg/dl (9-20); CALCIUM 8.7 mg/dL (8.4-10.2); CARBON DIOXIDE 34 mmol/L (22-30); CHLORIDE 102 mmol/L (98-107); GFR AFRICAN-AMERICAN > 60; GLUCOSE,RANDOM 175 mg/dL (75-110); POTASSIUM 4.6 MMOL/L (3.6-5.0); SODIUM 143 mmol/l (132-148); TOTAL PROTEIN 5.8 G/DL (6.3-8.2)
[2017-02-15] MEDS: Insulin Lispro (humaLOG) 100 Units/ml Inj SC SCH ×3 (08:23→17:12)
[2017-02-15] MEDS: Digoxin 250 mcg (0.25 mg) Tab PO SCH (08:39)
[2017-02-15] MEDS: Pantoprazole 40 mg EC Tab PO SCH (08:40)
[2017-02-15] MEDS: Meropenem 1 GM in Sodium Chloride 0.9% 100 ML IVPB SCH ×2 (08:40→21:07)
[2017-02-15] MEDS: methylPREDNISolone 40 MG in Sodium Chloride 0.9% 50 ML IVPB SCH ×2 (08:41→20:32)
[2017-02-15] MEDS: Tiotropium 18 mcg Cap For Inhalation INH SCH (08:42)
--- NOTE | 2017-02-15 11:50 | CP.PCM.HP ---
<Hanny Briceño - Last Filed: 02/15/17 11:47> History of Present Illness - History of Present Illness History of Present Illness: 82 yr old M admitted to TCU for deconditioning and IV antibiotics for Pneumonia. Discharged from med-surg after improvement of SOB on exertion secondary to COPD exacerbation, pneumonia and severe systolic CHF. Patient has PMHx of Atrial Fibrillation, COPD, Systolic CHF, NIDDM, pulmonary fibrosis, Penile cancer, former Etoh abuse (quit 4 yrs ago), former smoker (40 pack years , quit 8 yrs ago). Patients SOB is mild, HR is controlled s/p medical treatment adjusted by Cardiology. Pulmonology on board will continue current tx. Echocardiogram showed LVEF of 20-25%. ID on board, sputum culture resulted Psuedomonas aerug. and antibiotics were adjusted :today Day 7 of IV Vanco/ Day 3 of Meropenem. While inpatient, INR/PT order is required daily and Warfarin dose order is dependant on lab value. Pt seen and evaluated today, does not have any complaints. states feeling a ok. denies any chest pain, sob, dizziness , abdominal pain PMD: Dr. Chris Aguirre MD PMHx: Atrial Fibrillation, COPD, Systolic CHF class IV, NIDDM, pulmonary fibrosis, Penile cancer, former Etoh abuse (quit 4 yrs ago), former smoker (40 pack years, quit 8 yrs ago) SurgHx: procedure for penis cancer 4 years ago. Sochx: former smoker 40 years pack years. quit 8 years ago, denies drugs, former ETOH abuse, quit 8 years ago, recently came from [place] where he lived all his life, now living with his children Home Meds: Warfarin 1mg daily (now adjusted daily pending daily INR results), Finasteride 500 mg 1 tab daily, spironolactone 25 mg daily, Metformin 500 mg BID , Duoneb 4 times/day, montelukast 10 mg daily, furosemide 20 mg daily, Spiriva 18mcg INH , (recently discontinued by Dr. Godfrey -cardiology: amiodarone 200 mg daily, diltiazem 180 mg daily) Allergies: NKDA Present on Admission - Present on Admission Any Indicators Present on Admission: Yes History of Uncontrolled Diabetes: Yes Review of Systems - Review of Systems All systems: reviewed and no additional remarkable complaints except Review of Systems: See HPI Past Patient History - Infectious Disease Hx of Infectious Diseases: None - Past Medical History & Family History Past Medical History?: Yes - Past Social History Smoking Status: Former Smoker - CARDIAC Hx Atrial Fibrillation: Yes Hx Congestive Heart Failure: Yes Hx Hypertension: Yes - PULMONARY Hx Asthma: Yes Hx Chronic Obstructive Pulmonary Disease (COPD): Yes Hx Emphysema: Yes - NEUROLOGICAL Hx Neurological Disorder: Yes Hx Vertigo: Yes - HEENT Hx HEENT Problems: No Other/Comment: Dentures - RENAL Hx Chronic Kidney Disease: No - ENDOCRINE/METABOLIC Hx Diabetes Mellitus Type 2: Yes - HEMATOLOGICAL/ONCOLOGICAL Hx Blood Disorders: No Hx AIDS: No Hx Human Immunodeficiency Virus (HIV): No - INTEGUMENTARY Hx Dermatological Problems: No - MUSCULOSKELETAL/RHEUMATOLOGICAL Hx Musculoskeletal Disorders: No Hx Falls: No - GASTROINTESTINAL Hx Gastrointestinal Disorders: No - GENITOURINARY/GYNECOLOGICAL Hx Genitourinary Disorders: Yes Other/Comment: penile cancer - PSYCHIATRIC Hx Psychophysiologic Disorder: No Hx Substance Use: No - SURGICAL HISTORY Hx Surgeries: Yes Other/Comment: Penile surg from [place] - ANESTHESIA Hx Anesthesia: Yes Hx Anesthesia Reactions: No Hx Malignant Hyperthermia: No Has any member of the family had a problem w/ anesthesia?: No Meds Allergies/Adverse Reactions: Allergies Allergy/AdvReac Type Severity Reaction Status Date / Time No Known Allergies Allergy Verified 02/14/17 16:48 Physical Exam - Constitutional Appears: No Acute Distress - ENT Exam ENT Exam: Mucous Membranes Moist - Respiratory Exam Respiratory Exam: Rhonchi, NORMAL BREATHING PATTERN - Cardiovascular Exam Cardiovascular Exam: +S1, +S2 - GI/Abdominal Exam GI & Abdominal Exam: Normal Bowel Sounds, Soft. absent: Tenderness - Extremities Exam Extremities exam: Negative for: calf tenderness - Neurological Exam Neurological exam: Alert Results - Vital Signs Recent Vital Signs: Last Vital Signs Temp 97.2 F L 02/15/17 08:42 Pulse 86 02/15/17 08:42 Resp 20 02/15/17 08:42 BP 134/74 02/15/17 08:42 Pulse Ox 98 02/15/17 08:42 - Labs Result Diagrams: 02/15/17 05:30 Labs: Laboratory Results - last 24 hr 02/14/17 02/15/17 02/15/17 21:06 05:30 05:30 PT 26.6 H INR 2.3 H Sodium 143 Potassium 4.6 Chloride 102 Carbon Dioxide 34 H Anion Gap 12 BUN 44 H Creatinine 1.0 Est GFR ( Amer) > 60 Est GFR (Non-Af Amer) > 60 POC Glucose (mg/dL) 277 H Random Glucose 175 H Calcium 8.7 Total Bilirubin 0.2 AST 17 ALT 40 Alkaline Phosphatase 57 Total Protein 5.8 L Albumin 3.2 L Globulin 2.6 Albumin/Globulin Ratio 1.2 02/15/17 02/15/17 05:32 10:49 PT INR Sodium Potassium Chloride Carbon Dioxide Anion Gap BUN Creatinine Est GFR ( Amer) Est GFR (Non-Af Amer) POC Glucose (mg/dL) 183 H 204 H Random Glucose Calcium Total Bilirubin AST ALT Alkaline Phosphatase Total Protein Albumin Globulin Albumin/Globulin Ratio Assessment & Plan - Assessment and Plan (Free Text) Assessment: 82 yr old M admitted to TCU for deconditioning and IV antibiotics for Pneumonia. Patient stable, SOB improving. Cardiology, Pulmonology and ID on board. PLAN Community Acquired Pneumonia -acute, leukocytosis resolved -CXR: suspected right basilar pneumonia - Day 7 Vancomycin 1gm IV Q12H ; Day 3 Meropenem 1g Q12H -sputum culture: positive for Psuedomona aerug. -ID on board: Dr. Painting COPD Exacerbation -acute, symptoms improving: SOB/increased sputum production -Duoneb 3 ml Inh Q6h PRN for SOB -Methylprednisolone to 40 mg IV Q12H AKUA -continue home meds: Singulair 10mg PO QD, adjusted Spiriva to 18 mcg INH QD, -Supplemental O2 via nasal cannula to maintain O2 sat between 88-92% Congestive Heart Failure -Systolic (Severe) -chronic, ProBNP 5620 -continue home meds: Furosemide 40mg IV QD, Spironolactone 25mg PO QD -Cardiology consult appreciated-Dr. Godfrey: will follow recommendations -Echocardiogram: LVEF 20-25% , severely impaired systolic function, severe MR and severe Pulm HTN(see full report) Atrial Fibrillation -stable, chronic -EKG showed Atrial flutter with 2:1 conduction -Cardiology consult appreciated-Dr. Godfrey: start Digoxin 0.25mg PO QD, start Metoprolol 12.5mg PO Q12H (d/c Amiodarione and Diltiazem) -daily INR , daily adjustment of Warfarin dose NIDDM -uncontrolled, chronic, HbA1c 8.4 -continue home med: Metformin 500 mg PO BID -started Insulin Lispro 3 units SCTID, Insulin Detemir 11 units SC HS -Regular Human Insulin SC ACHS low dose protocol -Gabapentin 100mg PO QHS for diabetic peripheral neuropathy -hypoglycemia protocol -lipid panel triglyc 62/ chol 137/ LDL 76/ HDL 35 Anemia of Chronic Disease -stable, chronic, likely secondary to COPD/Heart Failure -H/H: 10.0/31.2 MCV 85.3 RDW 18.6 -Iron 17, TIBC 235, transferrin 170, ferritin 97.5, C-reactive protein elevated , ESR 67 DVT/GI prophylaxis -SCD's for now, as patient is anticoagulated with Warfarin -Protonix 40mg PO QD <Guerita Nicole - Last Filed: 02/16/17 08:32> Results - Vital Signs Recent Vital Signs: Last Vital Signs Temp 98.0 F 02/16/17 08:27 Pulse 81 02/16/17 08:27 Resp 20 02/16/17 08:27 BP 134/69 02/16/17 08:27 Pulse Ox 99 02/16/17 08:27 - Labs Result Diagrams: 02/15/17 05:30 Labs: Laboratory Results - last 24 hr 02/15/17 02/15/17 02/15/17 10:49 16:20 21:36 POC Glucose (mg/dL) 204 H 182 H 192 H 02/16/17 05:52 POC Glucose (mg/dL) 251 H Assessment & Plan - Assessment and Plan (Free Text) Assessment: ADDENDUM - ATTENDING NOTE PATIENT SEEN AND EXAMINED. CASE DISCUSSED WITH RESIDENT. AGREE WITH FINDINGS AND PLAN.
--- NOTE | 2017-02-15 11:55 | CP.PCM.CON ---
History of Present Illness - History of Present Illness History of Present Illness: 82 YR OLD MALE WITH HX OF COPD,PSEUDOMONAS PNEUMONIA,CHF AND CARDIAC ARRYTHMIAS WHO IS TRANSFERRED TO [facility] FOR [facility]AB AND IV ANTICIOTICS HE APPEARS TO HAVE CLINICALLY IMPROVED DENIES CHEST PAINA AND SOB WITH COUGH HAS IMPROVED Past Patient History - Infectious Disease Hx of Infectious Diseases: None - Past Medical History & Family History Past Medical History?: Yes - Past Social History Smoking Status: Former Smoker - CARDIAC Hx Atrial Fibrillation: Yes Hx Congestive Heart Failure: Yes Hx Hypertension: Yes - PULMONARY Hx Asthma: Yes Hx Chronic Obstructive Pulmonary Disease (COPD): Yes Hx Emphysema: Yes - NEUROLOGICAL Hx Neurological Disorder: Yes Hx Vertigo: Yes - HEENT Hx HEENT Problems: No Other/Comment: Dentures - RENAL Hx Chronic Kidney Disease: No - ENDOCRINE/METABOLIC Hx Diabetes Mellitus Type 2: Yes - HEMATOLOGICAL/ONCOLOGICAL Hx Blood Disorders: No Hx AIDS: No Hx Human Immunodeficiency Virus (HIV): No - INTEGUMENTARY Hx Dermatological Problems: No - MUSCULOSKELETAL/RHEUMATOLOGICAL Hx Musculoskeletal Disorders: No Hx Falls: No - GASTROINTESTINAL Hx Gastrointestinal Disorders: No - GENITOURINARY/GYNECOLOGICAL Hx Genitourinary Disorders: Yes Other/Comment: penile cancer - PSYCHIATRIC Hx Psychophysiologic Disorder: No Hx Substance Use: No - SURGICAL HISTORY Hx Surgeries: Yes Other/Comment: Penile surg from [place] - ANESTHESIA Hx Anesthesia: Yes Hx Anesthesia Reactions: No Hx Malignant Hyperthermia: No Has any member of the family had a problem w/ anesthesia?: No Meds Allergies/Adverse Reactions: Allergies Allergy/AdvReac Type Severity Reaction Status Date / Time No Known Allergies Allergy Verified 02/14/17 16:48 - Medications Medications: Current Medications Dextrose (Dextrose 50% Inj) 0 ml IV STAT PRN; Protocol PRN Reason: Hyglycemia Protocol Dextrose (Glutose 15) 0 gm PO ONCE PRN; Protocol PRN Reason: Hypoglycemia Protocol Digoxin (Lanoxin) 0.25 mg PO DAILY [facility] Last Admin: 02/15/17 08:39 Dose: 0.25 mg Docusate Sodium (Colace) 100 mg PO BID PRN PRN Reason: Constipation Finasteride (Proscar) 5 mg PO DAILY [facility] Last Admin: 02/15/17 08:40 Dose: 5 mg Furosemide (Lasix) 40 mg IVP DAILY [facility] Last Admin: 02/15/17 08:39 Dose: 40 mg Gabapentin (Neurontin) 100 mg PO HS [facility] Last Admin: 02/14/17 21:21 Dose: 100 mg Glucagon (Glucagen Diagnostic Kit) 0 mg IM STAT PRN; Protocol PRN Reason: Hypoglycemia Protocol Guaifenesin/Dextromethorphan (Robitussin Dm) 10 ml PO Q6 PRN PRN Reason: Cough Meropenem 1 gm/ Sodium (Chloride) 100 mls @ 100 mls/hr IVPB Q12 [facility] Last Admin: 02/15/17 08:40 Dose: 100 mls/hr Methylprednisolone 40 mg/ (Sodium Chloride) 50 mls @ 50 mls/hr IVPB Q12H [facility] Last Admin: 02/15/17 08:41 Dose: 50 mls/hr Vancomycin HCl 1 gm/ Sodium (Chloride) 250 mls @ 166.667 mls/hr IVPB Q12 [facility] Last Admin: 02/15/17 08:41 Dose: 166.667 mls/hr Insulin Detemir (Levemir) 11 units SC HS [facility] Last Admin: 02/14/17 21:39 Dose: 11 units Insulin Human Lispro (Humalog) 3 units SC ACTID [facility] Last Admin: 02/15/17 08:23 Dose: 3 unit Insulin Human Regular (Humulin R) 0 units SC ACHS [facility] PRN Reason: Protocol Last Admin: 02/15/17 07:38 Dose: 1 units Levalbuterol HCl (Xopenex) 1.25 mg INH RQ8 [facility] Last Admin: 02/15/17 07:29 Dose: 1.25 mg Lisinopril (Zestril) 5 mg PO DAILY [facility] Last Admin: 02/15/17 08:42 Dose: 5 mg Metformin HCl (Glucophage) 500 mg PO BID [facility] Last Admin: 02/15/17 08:39 Dose: 500 mg Metoprolol Tartrate (Lopressor) 12.5 mg PO Q12 [facility] Last Admin: 02/15/17 08:39 Dose: 12.5 mg Montelukast Sodium (Singulair) 10 mg PO DAILY@2100 [facility] Neomycin/Polymyxin/Hydrocortisone (Cortisporin Otic Soln) 4 drop TID [facility] Last Admin: 02/15/17 08:38 Dose: 4 drop Pantoprazole Sodium (Protonix Ec Tab) 40 mg PO DAILY [facility] Last Admin: 02/15/17 08:40 Dose: 40 mg Spironolactone (Aldactone) 25 mg PO DAILY [facility] Last Admin: 02/15/17 08:38 Dose: 25 mg Tiotropium [place] (Spiriva) 18 mcg INH DAILY [facility] Last Admin: 02/15/17 08:42 Dose: 18 mcg Warfarin Sodium (Coumadin) 2.5 mg PO QD5 [facility] PRN Reason: Protocol Stop: 02/15/17 17:01 Physical Exam - Constitutional Appears: No Acute Distress - Head Exam Head Exam: ATRAUMATIC, NORMAL INSPECTION, NORMOCEPHALIC - Eye Exam Eye Exam: EOMI, Normal appearance, PERRL Pupil Exam: NORMAL ACCOMODATION, PERRL - ENT Exam ENT Exam: Mucous Membranes Moist, Normal Exam - Neck Exam Neck exam: Positive for: Normal Inspection - Respiratory Exam Respiratory Exam: Decreased Breath Sounds, Prolonged Expiratory Phase, NORMAL BREATHING PATTERN - Cardiovascular Exam Cardiovascular Exam: REGULAR RHYTHM - GI/Abdominal Exam GI & Abdominal Exam: Normal Bowel Sounds, Soft. absent: Tenderness - Rectal Exam Rectal Exam: NORMAL INSPECTION - Extremities Exam Extremities exam: Positive for: normal inspection - Back Exam Back exam: NORMAL INSPECTION - Neurological Exam Neurological exam: Alert, CN II-XII Intact, Normal Gait, Oriented x3, Reflexes Normal - Psychiatric Exam Psychiatric exam: Normal Affect, Normal Mood - Skin Skin Exam: Dry, Intact, Normal Color, Warm Results - Vital Signs Recent Vital Signs: Last Vital Signs Temp 97.2 F L 02/15/17 08:42 Pulse 86 02/15/17 08:42 Resp 20 02/15/17 08:42 BP 134/74 02/15/17 08:42 Pulse Ox 98 02/15/17 08:42 - Labs Result Diagrams: 02/15/17 05:30 Labs: Laboratory Results - last 24 hr 02/14/17 02/15/17 02/15/17 21:06 05:30 05:30 PT 26.6 H INR 2.3 H Sodium 143 Potassium 4.6 Chloride 102 Carbon Dioxide 34 H Anion Gap 12 BUN 44 H Creatinine 1.0 Est GFR ( Amer) > 60 Est GFR (Non-Af Amer) > 60 POC Glucose (mg/dL) 277 H Random Glucose 175 H Calcium 8.7 Total Bilirubin 0.2 AST 17 ALT 40 Alkaline Phosphatase 57 Total Protein 5.8 L Albumin 3.2 L Globulin 2.6 Albumin/Globulin Ratio 1.2 02/15/17 02/15/17 05:32 10:49 PT INR Sodium Potassium Chloride Carbon Dioxide Anion Gap BUN Creatinine Est GFR ( Amer) Est GFR (Non-Af Amer) POC Glucose (mg/dL) 183 H 204 H Random Glucose Calcium Total Bilirubin AST ALT Alkaline Phosphatase Total Protein Albumin Globulin Albumin/Globulin Ratio Assessment & Plan - Assessment and Plan (Free Text) Assessment: CHF PNEUMONIA ARRYTHMIAS ASHD COPD Plan: SPUTUM CULTURES CXR CONTINUE SAME RX
[2017-02-15] MEDS ORDERED: Sodium Chloride 3% for Inhalation 4 ML VIAL.NEB IH PRN (11:58)
--- NOTE | 2017-02-15 18:11 | CP.PCM.PN ---
Subjective - Date & Time of Evaluation Date of Evaluation: 02/15/17 Time of Evaluation: 18:07 - Subjective Subjective: ID NOTE DICTATED 02/14/17 NOT IN RECORDS HAD DISCUSSED RX C RESIDENT(FP) HAVE STARTED MERROPENEM Objective - Vital Signs/Intake and Output Vital Signs (last 24 hours): Temp Pulse Resp BP Pulse Ox 97.3 F L 78 20 113/62 100 02/15/17 16:40 02/15/17 16:40 02/15/17 16:40 02/15/17 16:40 02/15/17 16:40 - Medications Medications: Current Medications Dextrose (Dextrose 50% Inj) 0 ml IV STAT PRN; Protocol PRN Reason: Hyglycemia Protocol Dextrose (Glutose 15) 0 gm PO ONCE PRN; Protocol PRN Reason: Hypoglycemia Protocol Digoxin (Lanoxin) 0.25 mg PO DAILY [facility] Last Admin: 02/15/17 08:39 Dose: 0.25 mg Docusate Sodium (Colace) 100 mg PO BID PRN PRN Reason: Constipation Finasteride (Proscar) 5 mg PO DAILY [facility] Last Admin: 02/15/17 08:40 Dose: 5 mg Furosemide (Lasix) 40 mg IVP DAILY [facility] Last Admin: 02/15/17 08:39 Dose: 40 mg Gabapentin (Neurontin) 100 mg PO HS [facility] Last Admin: 02/14/17 21:21 Dose: 100 mg Glucagon (Glucagen Diagnostic Kit) 0 mg IM STAT PRN; Protocol PRN Reason: Hypoglycemia Protocol Guaifenesin/Dextromethorphan (Robitussin Dm) 10 ml PO Q6 PRN PRN Reason: Cough Meropenem 1 gm/ Sodium (Chloride) 100 mls @ 100 mls/hr IVPB Q12 [facility] Last Admin: 02/15/17 08:40 Dose: 100 mls/hr Methylprednisolone 40 mg/ (Sodium Chloride) 50 mls @ 50 mls/hr IVPB Q12H [facility] Last Admin: 02/15/17 08:41 Dose: 50 mls/hr Vancomycin HCl 1 gm/ Sodium (Chloride) 250 mls @ 166.667 mls/hr IVPB Q12 [facility] Last Admin: 02/15/17 08:41 Dose: 166.667 mls/hr Insulin Detemir (Levemir) 11 units SC HS [facility] Last Admin: 07/21/17 21:39 Dose: 11 units Insulin Human Lispro (Humalog) 3 units SC ACTID [facility] Last Admin: 02/15/17 17:12 Dose: 3 unit Insulin Human Regular (Humulin R) 0 units SC ACHS [facility] PRN Reason: Protocol Last Admin: 02/15/17 17:12 Dose: 1 units Levalbuterol HCl (Xopenex) 1.25 mg INH RQ8 [facility] Last Admin: 02/15/17 15:40 Dose: 1.25 mg Lisinopril (Zestril) 5 mg PO DAILY [facility] Last Admin: 02/15/17 08:42 Dose: 5 mg Metformin HCl (Glucophage) 500 mg PO BID [facility] Last Admin: 02/15/17 17:14 Dose: 500 mg Metoprolol Tartrate (Lopressor) 12.5 mg PO Q12 [facility] Last Admin: 02/15/17 08:39 Dose: 12.5 mg Montelukast Sodium (Singulair) 10 mg PO DAILY@2100 [facility] Neomycin/Polymyxin/Hydrocortisone (Cortisporin Otic Soln) 4 drop TID [facility] Last Admin: 02/15/17 17:14 Dose: 4 drop Pantoprazole Sodium (Protonix Ec Tab) 40 mg PO DAILY [facility] Last Admin: 02/15/17 08:40 Dose: 40 mg Spironolactone (Aldactone) 25 mg PO DAILY [facility] Last Admin: 02/15/17 08:38 Dose: 25 mg Tiotropium [place] (Spiriva) 18 mcg INH DAILY [facility] Last Admin: 02/15/17 08:42 Dose: 18 mcg - Labs Labs: 02/15/17 05:30 PT 26.6 Seconds (9.8-13.1) H 02/15/17 05:30 INR 2.3 (0.9-1.2) H 02/15/17 05:30
[2017-02-15] MEDS: Insulin Detemir 100 Units/ml Inj SC SCH (21:55)
[2017-02-16] MEDS: Insulin Regular 100 units/ml SC SCH ×4 (06:59→21:16)
[2017-02-16] MEDS: Levalbuterol 1.25 MG/3 ML Inhal Soln UD INH SCH ×2 (08:27→15:48)
[2017-02-16] MEDS: Insulin Lispro (humaLOG) 100 Units/ml Inj SC SCH ×3 (08:29→16:56)
[2017-02-16] MEDS: Digoxin 250 mcg (0.25 mg) Tab PO SCH (08:30)
[2017-02-16] MEDS: Pantoprazole 40 mg EC Tab PO SCH (08:31)
[2017-02-16] MEDS: methylPREDNISolone 40 MG in Sodium Chloride 0.9% 50 ML IVPB SCH ×2 (08:33→21:08)
--- NOTE | 2017-02-16 09:10 | RAD ---
PROCEDURE: CHEST RADIOGRAPH, 1 VIEW HISTORY: CHF/PNEUMONIA COMPARISON: None available. FINDINGS: LUNGS: Small right lower lobe infiltrate. PLEURA: No pneumothorax or pleural fluid seen. CARDIOVASCULAR: Normal. OSSEOUS STRUCTURES: No significant abnormalities. VISUALIZED UPPER ABDOMEN: Normal. OTHER FINDINGS: None. IMPRESSION: Small right lower lobe infiltrate.
[2017-02-16 09:53] LABS: MEAN CELL VOLUME 85.9 fl (80.0-94.0); MEAN CORPUSCULAR HEMOGLOBIN 26.7 pg (27.0-31.0); RED CELL DISTRIBUTION WIDTH 17.9 % (11.5-14.5); WHITE BLOOD COUNT 14.8 K/uL (4.8-10.8)
[2017-02-16 09:57] LABS: CHLORIDE 100 mmol/L (98-107); POTASSIUM 4.6 MMOL/L (3.6-5.0); SODIUM 141 mmol/l (132-148)
[2017-02-16 10:00] LABS: CARBON DIOXIDE 37 mmol/L (22-30); GFR AFRICAN-AMERICAN > 60
[2017-02-16 10:01] LABS: BLOOD UREA NITROGEN 40 mg/dl (9-20); CALCIUM 9.1 mg/dL (8.4-10.2); GLUCOSE,RANDOM 182 mg/dL (75-110)
[2017-02-16] MEDS: Tiotropium 18 mcg Cap For Inhalation INH SCH (10:17)
--- NOTE | 2017-02-16 12:17 | CP.PCM.PN ---
Objective - Vital Signs/Intake and Output Vital Signs (last 24 hours): Temp Pulse Resp BP Pulse Ox 98.0 F 81 20 134/69 99 02/16/17 08:27 02/16/17 08:35 02/16/17 08:27 02/16/17 08:35 02/16/17 08:27 - Medications Medications: Current Medications Dextrose (Dextrose 50% Inj) 0 ml IV STAT PRN; Protocol PRN Reason: Hyglycemia Protocol Dextrose (Glutose 15) 0 gm PO ONCE PRN; Protocol PRN Reason: Hypoglycemia Protocol Digoxin (Lanoxin) 0.25 mg PO DAILY [facility] Last Admin: 02/16/17 08:30 Dose: 0.25 mg Docusate Sodium (Colace) 100 mg PO BID PRN PRN Reason: Constipation Finasteride (Proscar) 5 mg PO DAILY [facility] Last Admin: 02/16/17 08:30 Dose: 5 mg Furosemide (Lasix) 40 mg IVP DAILY [facility] Last Admin: 02/16/17 08:31 Dose: 40 mg Gabapentin (Neurontin) 100 mg PO HS [facility] Last Admin: 02/15/17 21:10 Dose: 100 mg Glucagon (Glucagen Diagnostic Kit) 0 mg IM STAT PRN; Protocol PRN Reason: Hypoglycemia Protocol Guaifenesin/Dextromethorphan (Robitussin Dm) 10 ml PO Q6 PRN PRN Reason: Cough Methylprednisolone 40 mg/ (Sodium Chloride) 50 mls @ 50 mls/hr IVPB Q12H [facility] Last Admin: 02/16/17 08:33 Dose: 50 mls/hr Meropenem 1 gm/ Sodium (Chloride) 100 mls @ 100 mls/hr IVPB Q12H [facility] Vancomycin HCl 1 gm/ Sodium (Chloride) 250 mls @ 166.667 mls/hr IVPB Q12H [facility] Insulin Detemir (Levemir) 11 units SC HS [facility] Last Admin: 02/15/17 21:55 Dose: 11 units Insulin Human Lispro (Humalog) 3 units SC ACTID [facility] Last Admin: 02/16/17 08:29 Dose: 3 unit Insulin Human Regular (Humulin R) 0 units SC ACHS [facility] PRN Reason: Protocol Last Admin: 02/16/17 06:59 Dose: 3 units Levalbuterol HCl (Xopenex) 1.25 mg INH RQ8 [facility] Last Admin: 02/16/17 08:27 Dose: 1.25 mg Lisinopril (Zestril) 5 mg PO DAILY [facility] Last Admin: 02/16/17 08:35 Dose: 5 mg Metformin HCl (Glucophage) 500 mg PO BID [facility] Last Admin: 02/16/17 08:31 Dose: 500 mg Metoprolol Tartrate (Lopressor) 12.5 mg PO Q12 [facility] Last Admin: 02/16/17 08:31 Dose: 12.5 mg Montelukast Sodium (Singulair) 10 mg PO DAILY@2100 [facility] Last Admin: 02/15/17 21:11 Dose: 10 mg Neomycin/Polymyxin/Hydrocortisone (Cortisporin Otic Soln) 4 drop TID [facility] Last Admin: 02/16/17 08:32 Dose: 4 drop Pantoprazole Sodium (Protonix Ec Tab) 40 mg PO DAILY [facility] Last Admin: 02/16/17 08:31 Dose: 40 mg Spironolactone (Aldactone) 25 mg PO DAILY [facility] Last Admin: 02/16/17 08:31 Dose: 25 mg Tiotropium [place] (Spiriva) 18 mcg INH DAILY [facility] Last Admin: 02/16/17 10:17 Dose: 18 mcg - Labs Labs: 02/16/17 09:00 02/16/17 09:00 PT 43.9 Seconds (9.8-13.1) H* D 02/16/17 09:00 INR 3.8 (0.9-1.2) H D 02/16/17 09:00
--- NOTE | 2017-02-16 12:28 | CP.PCM.PN ---
Subjective - Date & Time of Evaluation Date of Evaluation: 02/16/17 Time of Evaluation: 12:28 - Subjective Subjective: CLINICALLY UNCHANGED NO NEW CLINICAL FINDINGS CXR-RESIDUAL PNEUMONIA PLAN-CONTINUE SAME RX Objective - Vital Signs/Intake and Output Vital Signs (last 24 hours): Temp Pulse Resp BP Pulse Ox 98.0 F 81 20 134/69 99 02/16/17 08:27 02/16/17 08:35 02/16/17 08:27 02/16/17 08:35 02/16/17 08:27 - Medications Medications: Current Medications Dextrose (Dextrose 50% Inj) 0 ml IV STAT PRN; Protocol PRN Reason: Hyglycemia Protocol Dextrose (Glutose 15) 0 gm PO ONCE PRN; Protocol PRN Reason: Hypoglycemia Protocol Digoxin (Lanoxin) 0.25 mg PO DAILY [facility] Last Admin: 02/16/17 08:30 Dose: 0.25 mg Docusate Sodium (Colace) 100 mg PO BID PRN PRN Reason: Constipation Finasteride (Proscar) 5 mg PO DAILY [facility] Last Admin: 02/16/17 08:30 Dose: 5 mg Furosemide (Lasix) 40 mg IVP DAILY [facility] Last Admin: 02/16/17 08:31 Dose: 40 mg Gabapentin (Neurontin) 100 mg PO HS [facility] Last Admin: 02/15/17 21:10 Dose: 100 mg Glucagon (Glucagen Diagnostic Kit) 0 mg IM STAT PRN; Protocol PRN Reason: Hypoglycemia Protocol Guaifenesin/Dextromethorphan (Robitussin Dm) 10 ml PO Q6 PRN PRN Reason: Cough Methylprednisolone 40 mg/ (Sodium Chloride) 50 mls @ 50 mls/hr IVPB Q12H [facility] Last Admin: 02/16/17 08:33 Dose: 50 mls/hr Meropenem 1 gm/ Sodium (Chloride) 100 mls @ 100 mls/hr IVPB Q12H [facility] Vancomycin HCl 1 gm/ Sodium (Chloride) 250 mls @ 166.667 mls/hr IVPB Q12H [facility] Insulin Detemir (Levemir) 11 units SC HS [facility] Last Admin: 02/15/17 21:55 Dose: 11 units Insulin Human Lispro (Humalog) 3 units SC ACTID [facility] Last Admin: 02/16/17 08:29 Dose: 3 unit Insulin Human Regular (Humulin R) 0 units SC ACHS [facility] PRN Reason: Protocol Last Admin: 02/16/17 06:59 Dose: 3 units Levalbuterol HCl (Xopenex) 1.25 mg INH RQ8 [facility] Last Admin: 02/16/17 08:27 Dose: 1.25 mg Lisinopril (Zestril) 5 mg PO DAILY [facility] Last Admin: 02/16/17 08:35 Dose: 5 mg Metformin HCl (Glucophage) 500 mg PO BID [facility] Last Admin: 02/16/17 08:31 Dose: 500 mg Metoprolol Tartrate (Lopressor) 12.5 mg PO Q12 [facility] Last Admin: 02/16/17 08:31 Dose: 12.5 mg Montelukast Sodium (Singulair) 10 mg PO DAILY@2100 [facility] Last Admin: 02/15/17 21:11 Dose: 10 mg Neomycin/Polymyxin/Hydrocortisone (Cortisporin Otic Soln) 4 drop TID [facility] Last Admin: 02/16/17 08:32 Dose: 4 drop Pantoprazole Sodium (Protonix Ec Tab) 40 mg PO DAILY [facility] Last Admin: 02/16/17 08:31 Dose: 40 mg Spironolactone (Aldactone) 25 mg PO DAILY [facility] Last Admin: 02/16/17 08:31 Dose: 25 mg Tiotropium [place] (Spiriva) 18 mcg INH DAILY [facility] Last Admin: 02/16/17 10:17 Dose: 18 mcg - Labs Labs: 02/16/17 09:00 02/16/17 09:00 PT 43.9 Seconds (9.8-13.1) H* D 02/16/17 09:00 INR 3.8 (0.9-1.2) H D 02/16/17 09:00
--- NOTE | 2017-02-16 15:54 | CP.PCM.PN ---
<Zhanna Oneil - Last Filed: 02/16/17 15:49> Subjective - Date & Time of Evaluation Date of Evaluation: 02/16/17 Time of Evaluation: 08:40 - Subjective Subjective: Patient seen and examined at bedside, no acute events overnight. Laying in bed in no acute distress, tolerating PO diet, has normal urine output. Objective - Vital Signs/Intake and Output Vital Signs (last 24 hours): Temp Pulse Resp BP Pulse Ox 98.0 F 81 20 134/69 99 02/16/17 08:27 02/16/17 08:35 02/16/17 08:27 02/16/17 08:35 02/16/17 08:27 - Medications Medications: Current Medications Dextrose (Dextrose 50% Inj) 0 ml IV STAT PRN; Protocol PRN Reason: Hyglycemia Protocol Dextrose (Glutose 15) 0 gm PO ONCE PRN; Protocol PRN Reason: Hypoglycemia Protocol Digoxin (Lanoxin) 0.25 mg PO DAILY [facility] Last Admin: 02/16/17 08:30 Dose: 0.25 mg Docusate Sodium (Colace) 100 mg PO BID PRN PRN Reason: Constipation Finasteride (Proscar) 5 mg PO DAILY [facility] Last Admin: 02/16/17 08:30 Dose: 5 mg Furosemide (Lasix) 40 mg IVP DAILY [facility] Last Admin: 02/16/17 08:31 Dose: 40 mg Gabapentin (Neurontin) 100 mg PO HS [facility] Last Admin: 02/15/17 21:10 Dose: 100 mg Glucagon (Glucagen Diagnostic Kit) 0 mg IM STAT PRN; Protocol PRN Reason: Hypoglycemia Protocol Guaifenesin/Dextromethorphan (Robitussin Dm) 10 ml PO Q6 PRN PRN Reason: Cough Methylprednisolone 40 mg/ (Sodium Chloride) 50 mls @ 50 mls/hr IVPB Q12H [facility] Last Admin: 02/16/17 08:33 Dose: 50 mls/hr Meropenem 1 gm/ Sodium (Chloride) 100 mls @ 100 mls/hr IVPB Q12H [facility] Vancomycin HCl 1 gm/ Sodium (Chloride) 250 mls @ 166.667 mls/hr IVPB Q12H [facility] Insulin Detemir (Levemir) 11 units SC [facility] Last Admin: 02/15/17 21:55 Dose: 11 units Insulin Human Lispro (Humalog) 3 units SC ACTID [facility] Last Admin: 02/16/17 12:32 Dose: 3 unit Insulin Human Regular (Humulin R) 0 units SC ACHS [facility] PRN Reason: Protocol Last Admin: 02/16/17 12:30 Dose: Not Given Levalbuterol HCl (Xopenex) 1.25 mg INH RQ8 [facility] Last Admin: 02/16/17 15:48 Dose: 1.25 mg Lisinopril (Zestril) 5 mg PO DAILY [facility] Last Admin: 02/16/17 08:35 Dose: 5 mg Metformin HCl (Glucophage) 500 mg PO BID [facility] Last Admin: 02/16/17 08:31 Dose: 500 mg Metoprolol Tartrate (Lopressor) 12.5 mg PO Q12 [facility] Last Admin: 02/16/17 08:31 Dose: 12.5 mg Montelukast Sodium (Singulair) 10 mg PO DAILY@2100 [facility] Last Admin: 02/15/17 21:11 Dose: 10 mg Neomycin/Polymyxin/Hydrocortisone (Cortisporin Otic Soln) 4 drop TID [facility] Last Admin: 02/16/17 12:32 Dose: 4 drop Pantoprazole Sodium (Protonix Ec Tab) 40 mg PO DAILY [facility] Last Admin: 02/16/17 08:31 Dose: 40 mg Spironolactone (Aldactone) 25 mg PO DAILY [facility] Last Admin: 02/16/17 08:31 Dose: 25 mg Tiotropium [place] (Spiriva) 18 mcg INH DAILY [facility] Last Admin: 02/16/17 10:17 Dose: 18 mcg - Labs Labs: 02/16/17 09:00 02/16/17 09:00 PT 43.9 Seconds (9.8-13.1) H* D 02/16/17 09:00 INR 3.8 (0.9-1.2) H D 02/16/17 09:00 - Constitutional Appears: Non-toxic, No Acute Distress - Head Exam Head Exam: NORMAL INSPECTION - Eye Exam Eye Exam: EOMI, PERRL - ENT Exam ENT Exam: Mucous Membranes Moist - Neck Exam Neck Exam: Full ROM. absent: Lymphadenopathy - Respiratory Exam Respiratory Exam: Rhonchi (diffuse), NORMAL BREATHING PATTERN - Cardiovascular Exam Cardiovascular Exam: REGULAR RHYTHM, +S1, +S2, Murmur - GI/Abdominal Exam GI & Abdominal Exam: Soft, Normal Bowel Sounds. absent: Tenderness - Extremities Exam Extremities Exam: Full ROM. absent: Calf Tenderness, Pedal Edema - Back Exam Back Exam: absent: CVA tenderness (L), CVA tenderness (R) - Neurological Exam Neurological Exam: Alert, Awake, CN II-XII Intact, Oriented x3 - Psychiatric Exam Psychiatric exam: Normal Affect, Normal Mood - Skin Skin Exam: Dry, Intact, Normal Color Assessment and Plan - Assessment and Plan (Free Text) Assessment: 82 yr old M admitted to TCU for deconditioning and IV antibiotics for Pneumonia. Patient stable, SOB improving. Cardiology, Pulmonology and ID on board. Repeat CXR shows residual pneumonia. Warfarin held today as INR is 3.8. Community Acquired Pneumonia -acute, leukocytosis increased to 14.8 -repeat CXR: small right lower lobe infiltrate - Day 8 Vancomycin 1gm IV Q12H ; Day 4 Meropenem 1g Q12H -sputum culture: positive for Psuedomona aerug. -ID on board: Dr. Painting COPD Exacerbation -acute, symptoms improving: SOB/increased sputum production -Duoneb 3 ml Inh Q6h PRN for SOB -Methylprednisolone to 40 mg IV Q12H [facility] -continue home meds: Singulair 10mg PO QD, adjusted Spiriva to 18 mcg INH QD, -Supplemental O2 via nasal cannula to maintain O2 sat between 88-92% Congestive Heart Failure -Systolic (Severe) -chronic, ProBNP 5620 -continue home meds: Furosemide 40mg IV QD, Spironolactone 25mg PO QD, Lisinopril 5mg PO QD -Cardiology consult appreciated-Dr. Godfrey: will follow recommendations -Echocardiogram: LVEF 20-25% , severely impaired systolic function, severe MR and severe Pulm HTN(see full report) Atrial Fibrillation -stable, chronic -EKG showed Atrial flutter with 2:1 conduction -Cardiology consult appreciated-Dr. Godfrey: start Digoxin 0.25mg PO QD, start Metoprolol 12.5mg PO Q12H (d/c Amiodarione and Diltiazem) -daily INR , daily adjustment of Warfarin dose -Warfarin held today as INR is 3.8 NIDDM -uncontrolled, chronic, HbA1c 8.4 -continue home med: Metformin 500 mg PO BID -started Insulin Lispro 3 units SCTID, Insulin Detemir 11 units SC HS -Regular Human Insulin SC ACHS low dose protocol -Gabapentin 100mg PO QHS for diabetic peripheral neuropathy -hypoglycemia protocol -lipid panel triglyc 62/ chol 137/ LDL 76/ HDL 35 Anemia of Chronic Disease -stable, chronic, likely secondary to COPD/Heart Failure -Iron 17, TIBC 235, transferrin 170, ferritin 97.5, C-reactive protein elevated , ESR 67 DVT/GI prophylaxis -SCD's for now, as patient is anticoagulated with Warfarin -Protonix 40mg PO QD <Guerita Nicole - Last Filed: 02/17/17 10:42> Subjective - Subjective Subjective: ATTENDING NOTE - ADDENDUM PAIENT SEEN AND EXAMINED. CASE DISCUSSED WITH RESIDENT. AGREE WITH FINDINGS AND PLAN. Objective - Vital Signs/Intake and Output Vital Signs (last 24 hours): Temp Pulse Resp BP Pulse Ox 97.8 F 72 20 139/71 99 02/17/17 08:05 02/17/17 08:05 02/17/17 08:05 02/17/17 08:05 02/17/17 08:05 - Medications Medications: Current Medications Dextrose (Dextrose 50% Inj) 0 ml IV STAT PRN; Protocol PRN Reason: Hyglycemia Protocol Dextrose (Glutose 15) 0 gm PO ONCE PRN; Protocol PRN Reason: Hypoglycemia Protocol Digoxin (Lanoxin) 0.25 mg PO DAILY [facility] Last Admin: 02/17/17 08:00 Dose: 0.25 mg Docusate Sodium (Colace) 100 mg PO BID PRN PRN Reason: Constipation Finasteride (Proscar) 5 mg PO DAILY [facility] Last Admin: 02/17/17 08:00 Dose: 5 mg Furosemide (Lasix) 40 mg PO DAILY [facility] Gabapentin (Neurontin) 100 mg PO HS [facility] Last Admin: 02/16/17 21:09 Dose: 100 mg Glucagon (Glucagen Diagnostic Kit) 0 mg IM STAT PRN; Protocol PRN Reason: Hypoglycemia Protocol Guaifenesin/Dextromethorphan (Robitussin Dm) 10 ml PO Q6 PRN PRN Reason: Cough Methylprednisolone 40 mg/ (Sodium Chloride) 50 mls @ 50 mls/hr IVPB Q12H [facility] Last Admin: 02/17/17 08:13 Dose: 50 mls/hr Meropenem 1 gm/ Sodium (Chloride) 100 mls @ 100 mls/hr IVPB Q12H [facility] Last Admin: 02/17/17 04:01 Dose: 100 mls/hr Vancomycin HCl 1 gm/ Sodium (Chloride) 250 mls @ 166.667 mls/hr IVPB Q12H [facility] Last Admin: 02/17/17 05:14 Dose: 166.667 mls/hr Insulin Detemir (Levemir) 11 units SC HS [facility] Last Admin: 02/16/17 21:10 Dose: 11 units Insulin Human Lispro (Humalog) 3 units SC ACTID [facility] Last Admin: 02/17/17 07:50 Dose: 3 unit Insulin Human Regular (Humulin R) 0 units SC ACHS [facility] PRN Reason: Protocol Last Admin: 02/17/17 06:59 Dose: 2 units Levalbuterol HCl (Xopenex) 1.25 mg INH RQ8 [facility] Last Admin: 02/17/17 08:18 Dose: 1.25 mg Lisinopril (Zestril) 5 mg PO DAILY [facility] Last Admin: 02/17/17 08:00 Dose: 5 mg Metformin HCl (Glucophage) 500 mg PO BID [facility] Last Admin: 02/17/17 08:00 Dose: 500 mg Metoprolol Tartrate (Lopressor) 12.5 mg PO Q12 [facility] Last Admin: 02/17/17 08:00 Dose: 12.5 mg Montelukast Sodium (Singulair) 10 mg PO DAILY@2100 [facility] Last Admin: 02/16/17 20:38 Dose: 10 mg Neomycin/Polymyxin/Hydrocortisone (Cortisporin Otic Soln) 4 drop TID [facility] Last Admin: 02/16/17 17:06 Dose: 4 drop Pantoprazole Sodium (Protonix Ec Tab) 40 mg PO DAILY [facility] Last Admin: 02/17/17 08:00 Dose: 40 mg Spironolactone (Aldactone) 25 mg PO DAILY [facility] Last Admin: 02/17/17 08:01 Dose: 25 mg Tiotropium [place] (Spiriva) 18 mcg INH DAILY [facility] Last Admin: 02/17/17 07:59 Dose: 18 mcg - Labs Labs: 02/17/17 07:00 02/16/17 09:00 PT 50.5 Seconds (9.8-13.1) H* D 02/17/17 07:00 INR 4.3 (0.9-1.2) H 02/17/17 07:00
[2017-02-16] MEDS: Meropenem 1 GM in Sodium Chloride 0.9% 100 ML IVPB SCH (16:57)
[2017-02-16] MEDS: Insulin Detemir 100 Units/ml Inj SC SCH (21:10)
[2017-02-16 22:27] LABS: RBC URINE 12 /hpf (0-3); URINE BACTERIA RARE (<OCC); URINE BILIRUBIN NEGATIVE (NEGATIVE); URINE BLOOD SMALL (NEGATIVE); URINE COLOR YELLOW (YELLOW); URINE GLUCOSE (UA) 150 mg/dL (Normal); URINE KETONE NEGATIVE (NEGATIVE); URINE LEUKOCYTE ESTERASE LARGE Leu/uL (Negative); URINE PROTEIN NEGATIVE (NEGATIVE); URINE UROBILINOGEN 0.2-1.0 mg/dL (0.2-1.0); WBC URINE 106 /hpf (0-5)
[2017-02-17] MEDS: Levalbuterol 1.25 MG/3 ML Inhal Soln UD INH SCH ×2 (00:20→08:18)
[2017-02-17] MEDS: Meropenem 1 GM in Sodium Chloride 0.9% 100 ML IVPB SCH ×2 (04:01→17:23)
[2017-02-17] MEDS: Insulin Regular 100 units/ml SC SCH ×4 (06:59→21:59)
--- NOTE | 2017-02-17 07:25 | CP.PCM.PN ---
Subjective - Date & Time of Evaluation Date of Evaluation: 02/17/17 Time of Evaluation: 05:45 - Subjective Subjective: feeling better walked to the bathroom and in the hallweay no chest pain sob Objective - Vital Signs/Intake and Output Vital Signs (last 24 hours): Temp Pulse Resp BP Pulse Ox 97.5 F L 85 20 110/57 L 95 02/16/17 20:30 02/16/17 20:37 02/16/17 20:30 02/16/17 20:37 02/16/17 20:30 - Medications Medications: Current Medications Dextrose (Dextrose 50% Inj) 0 ml IV STAT PRN; Protocol PRN Reason: Hyglycemia Protocol Dextrose (Glutose 15) 0 gm PO ONCE PRN; Protocol PRN Reason: Hypoglycemia Protocol Digoxin (Lanoxin) 0.25 mg PO DAILY [facility] Last Admin: 02/16/17 08:30 Dose: 0.25 mg Docusate Sodium (Colace) 100 mg PO BID PRN PRN Reason: Constipation Finasteride (Proscar) 5 mg PO DAILY [facility] Last Admin: 02/16/17 08:30 Dose: 5 mg Furosemide (Lasix) 40 mg IVP DAILY [facility] Last Admin: 02/16/17 08:31 Dose: 40 mg Gabapentin (Neurontin) 100 mg PO HS [facility] Last Admin: 02/16/17 21:09 Dose: 100 mg Glucagon (Glucagen Diagnostic Kit) 0 mg IM STAT PRN; Protocol PRN Reason: Hypoglycemia Protocol Guaifenesin/Dextromethorphan (Robitussin Dm) 10 ml PO Q6 PRN PRN Reason: Cough Methylprednisolone 40 mg/ (Sodium Chloride) 50 mls @ 50 mls/hr IVPB Q12H [facility] Last Admin: 02/16/17 21:08 Dose: 50 mls/hr Meropenem 1 gm/ Sodium (Chloride) 100 mls @ 100 mls/hr IVPB Q12H [facility] Last Admin: 02/17/17 04:01 Dose: 100 mls/hr Vancomycin HCl 1 gm/ Sodium (Chloride) 250 mls @ 166.667 mls/hr IVPB Q12H [facility] Last Admin: 02/17/17 05:14 Dose: 166.667 mls/hr Insulin Detemir (Levemir) 11 units SC [facility] Last Admin: 02/16/17 21:10 Dose: 11 units Insulin Human Lispro (Humalog) 3 units SC ACTID [facility] Last Admin: 02/16/17 16:56 Dose: 3 unit Insulin Human Regular (Humulin R) 0 units SC ACHS [facility] PRN Reason: Protocol Last Admin: 02/17/17 06:59 Dose: 2 units Levalbuterol HCl (Xopenex) 1.25 mg INH RQ8 [facility] Last Admin: 02/17/17 00:20 Dose: 1.25 mg Lisinopril (Zestril) 5 mg PO DAILY [facility] Last Admin: 02/16/17 08:35 Dose: 5 mg Metformin HCl (Glucophage) 500 mg PO BID [facility] Last Admin: 02/16/17 16:56 Dose: 500 mg Metoprolol Tartrate (Lopressor) 12.5 mg PO Q12 [facility] Last Admin: 02/16/17 20:37 Dose: 12.5 mg Montelukast Sodium (Singulair) 10 mg PO DAILY@2100 [facility] Last Admin: 02/16/17 20:38 Dose: 10 mg Neomycin/Polymyxin/Hydrocortisone (Cortisporin Otic Soln) 4 drop TID [facility] Last Admin: 02/16/17 17:06 Dose: 4 drop Pantoprazole Sodium (Protonix Ec Tab) 40 mg PO DAILY [facility] Last Admin: 02/16/17 08:31 Dose: 40 mg Spironolactone (Aldactone) 25 mg PO DAILY [facility] Last Admin: 02/16/17 08:31 Dose: 25 mg Tiotropium [place] (Spiriva) 18 mcg INH DAILY [facility] Last Admin: 02/16/17 10:17 Dose: 18 mcg - Labs Labs: 02/16/17 09:00 02/16/17 09:00 PT 43.9 Seconds (9.8-13.1) H* D 02/16/17 09:00 INR 3.8 (0.9-1.2) H D 02/16/17 09:00 - Constitutional Appears: No Acute Distress - Head Exam Head Exam: NORMAL INSPECTION - Eye Exam Eye Exam: Normal appearance, PERRL. absent: Periorbital swelling - ENT Exam ENT Exam: Mucous Membranes Moist - Neck Exam Neck Exam: absent: Lymphadenopathy, Thyromegaly - Respiratory Exam Respiratory Exam: Decreased Breath Sounds, Rhonchi, NORMAL BREATHING PATTERN - Cardiovascular Exam Cardiovascular Exam: REGULAR RHYTHM, Murmur - GI/Abdominal Exam GI & Abdominal Exam: Soft, Normal Bowel Sounds - Extremities Exam Extremities Exam: absent: Calf Tenderness, Joint Swelling, Pedal Edema Additional comments: [id number] muscle mass - Neurological Exam Neurological Exam: Altered, Awake, Oriented x3 - Psychiatric Exam Psychiatric exam: Normal Affect, Normal Mood - Skin Skin Exam: Dry, Intact, Warm Assessment and Plan (1) Unsteady gait Status: Acute (2) Acute bronchitis with chronic obstructive pulmonary disease (COPD) Status: Acute (3) Atrial flutter Status: Acute (4) COPD exacerbation Status: Acute (5) Uncontrolled diabetes mellitus Status: Acute (6) CHF (congestive heart failure), NYHA class IV Status: Chronic (7) Chronic a-fib Status: Chronic (8) Anemia of chronic disease Status: Chronic
[2017-02-17 07:28] LABS: BASO % 0.1 % (0.0-2.0); LYMPH # 0.3 K/uL (1.0-4.3); LYMPH % 2.1 % (20.0-40.0); MEAN CELL VOLUME 85.7 fl (80.0-94.0); MEAN CORPUSCULAR HEMOGLOBIN 26.9 pg (27.0-31.0); MEAN CORPUSCULAR HGB CONC 31.3 g/dL (33.0-37.0); MEAN PLATELET VOLUME 7.9 fl (7.2-11.7); MONO # 0.4 K/uL (0.0-0.8); MONO % 3.4 % (0.0-10.0); NEUT % 94.4 % (50.0-75.0); PLATELET COUNT 259 K/uL (130-400); RED CELL DISTRIBUTION WIDTH 18.1 % (11.5-14.5); WHITE BLOOD COUNT 12.7 K/uL (4.8-10.8)
[2017-02-17] MEDS: Insulin Lispro (humaLOG) 100 Units/ml Inj SC SCH ×3 (07:50→17:22)
[2017-02-17] MEDS: Tiotropium 18 mcg Cap For Inhalation INH SCH (07:59)
[2017-02-17] MEDS: Digoxin 250 mcg (0.25 mg) Tab PO SCH (08:00)
[2017-02-17] MEDS: Pantoprazole 40 mg EC Tab PO SCH (08:00)
[2017-02-17] MEDS: methylPREDNISolone 40 MG in Sodium Chloride 0.9% 50 ML IVPB SCH ×2 (08:13→22:05)
[2017-02-17 09:47] LABS: MYELOCYTE 1 % (0-0); NEUTROPHIL 95 % (42-75); REACTIVE LYMPHOCYTES 1 % (0-0); TOTAL CELLS COUNTED 100
--- NOTE | 2017-02-17 10:13 | CP.PCM.CON ---
History of Present Illness - History of Present Illness History of Present Illness: This 82-year-old man is known to me from his recent hospitalization for severe congestive cardiac failure and COPD. The patient has had a prior myocardial infarction with severely depressed left ventricular systolic function and chronic atrial fibrillation. He had been a heavy smoker and has had chronic lung disease secondary to it. He was also on amiodarone for atrial fibrillation. The patient was found to be in atrial flutter and his amiodarone was withdrawn. 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 The patient now is in transitional care unit. The patient was able to walk back from the bathroom with very little shortness of breath. He is alert awake and coherent. His heart rate was 78 bpm irregularly irregular with a blood pressure of 136/70 mmHg. There was no pedal edema. His jugular venous pressure was not elevated. Extremities were warm nailbeds were pink there was no central peripheral cyanosis. The chest had an emphysematous conflagration. The apex was not palpable. The first and second heart sounds were normal. An apical systolic murmur of mitral regurgitation was evident. There were no basal rales. His expiration was prolonged and there were bilateral wheezes. Abdomen was soft liver and spleen are not palpable. His electrocardiogram and echocardiogram were noted. Lab data was noted. IMPRESSION: Congestive cardiac failure, left ventricular chronic and systolic. Atrial fibrillation, chronic. Stable coronary artery disease with old anteroseptal wall myocardial infarction. COPD The patient appears stable from cardiovascular point of few and his present medications which include digoxin and metoprolol for heart rate control with oral loop diuretic with an JED inhibitor and spiaonolactone. Past Patient History - Infectious Disease Hx of Infectious Diseases: None - Past Medical History & Family History Past Medical History?: Yes - Past Social History Smoking Status: Former Smoker - CARDIAC Hx Congestive Heart Failure: Yes - PULMONARY Hx Chronic Obstructive Pulmonary Disease (COPD): Yes - NEUROLOGICAL Hx Neurological Disorder: Yes Hx Vertigo: Yes - HEENT Hx HEENT Problems: No Other/Comment: Dentures - RENAL Hx Chronic Kidney Disease: No - ENDOCRINE/METABOLIC Hx Diabetes Mellitus Type 2: Yes - HEMATOLOGICAL/ONCOLOGICAL Hx Blood Disorders: No Hx AIDS: No Hx Human Immunodeficiency Virus (HIV): No - INTEGUMENTARY Hx Dermatological Problems: No - MUSCULOSKELETAL/RHEUMATOLOGICAL Hx Musculoskeletal Disorders: No Hx Falls: No - GASTROINTESTINAL Hx Gastrointestinal Disorders: No - GENITOURINARY/GYNECOLOGICAL Hx Genitourinary Disorders: Yes Other/Comment: penile cancer - PSYCHIATRIC Hx Psychophysiologic Disorder: No Hx Substance Use: No - SURGICAL HISTORY Hx Surgeries: Yes Other/Comment: Penile surg from [place] - ANESTHESIA Hx Anesthesia: Yes Hx Anesthesia Reactions: No Hx Malignant Hyperthermia: No Has any member of the family had a problem w/ anesthesia?: No Meds Allergies/Adverse Reactions: Allergies Allergy/AdvReac Type Severity Reaction Status Date / Time No Known Allergies Allergy Verified 02/14/17 16:48 - Medications Medications: Current Medications Dextrose (Dextrose 50% Inj) 0 ml IV STAT PRN; Protocol PRN Reason: Hyglycemia Protocol Dextrose (Glutose 15) 0 gm PO ONCE PRN; Protocol PRN Reason: Hypoglycemia Protocol Digoxin (Lanoxin) 0.25 mg PO DAILY [facility] Last Admin: 02/17/17 08:00 Dose: 0.25 mg Docusate Sodium (Colace) 100 mg PO BID PRN PRN Reason: Constipation Finasteride (Proscar) 5 mg PO DAILY [facility] Last Admin: 02/17/17 08:00 Dose: 5 mg Furosemide (Lasix) 40 mg PO DAILY [facility] Gabapentin (Neurontin) 100 mg PO [facility] Last Admin: 02/16/17 21:09 Dose: 100 mg Glucagon (Glucagen Diagnostic Kit) 0 mg IM STAT PRN; Protocol PRN Reason: Hypoglycemia Protocol Guaifenesin/Dextromethorphan (Robitussin Dm) 10 ml PO Q6 PRN PRN Reason: Cough Methylprednisolone 40 mg/ (Sodium Chloride) 50 mls @ 50 mls/hr IVPB Q12H [facility] Last Admin: 02/17/17 08:13 Dose: 50 mls/hr Meropenem 1 gm/ Sodium (Chloride) 100 mls @ 100 mls/hr IVPB Q12H [facility] Last Admin: 02/17/17 04:01 Dose: 100 mls/hr Vancomycin HCl 1 gm/ Sodium (Chloride) 250 mls @ 166.667 mls/hr IVPB Q12H [facility] Last Admin: 02/17/17 05:14 Dose: 166.667 mls/hr Insulin Detemir (Levemir) 11 units SC [facility] Last Admin: 02/16/17 21:10 Dose: 11 units Insulin Human Lispro (Humalog) 3 units SC ACTID [facility] Last Admin: 02/17/17 07:50 Dose: 3 unit Insulin Human Regular (Humulin R) 0 units SC ACHS [facility] PRN Reason: Protocol Last Admin: 02/17/17 06:59 Dose: 2 units Levalbuterol HCl (Xopenex) 1.25 mg INH RQ8 [facility] Last Admin: 02/17/17 08:18 Dose: 1.25 mg Lisinopril (Zestril) 5 mg PO DAILY [facility] Last Admin: 02/17/17 08:00 Dose: 5 mg Metformin HCl (Glucophage) 500 mg PO BID [facility] Last Admin: 02/17/17 08:00 Dose: 500 mg Metoprolol Tartrate (Lopressor) 12.5 mg PO Q12 [facility] Last Admin: 02/17/17 08:00 Dose: 12.5 mg Montelukast Sodium (Singulair) 10 mg PO DAILY@2100 [facility] Last Admin: 02/16/17 20:38 Dose: 10 mg Neomycin/Polymyxin/Hydrocortisone (Cortisporin Otic Soln) 4 drop TID [facility] Last Admin: 02/16/17 17:06 Dose: 4 drop Pantoprazole Sodium (Protonix Ec Tab) 40 mg PO DAILY [facility] Last Admin: 02/17/17 08:00 Dose: 40 mg Spironolactone (Aldactone) 25 mg PO DAILY [facility] Last Admin: 02/17/17 08:01 Dose: 25 mg Tiotropium [place] (Spiriva) 18 mcg INH DAILY [facility] Last Admin: 02/17/17 07:59 Dose: 18 mcg Results - Vital Signs Recent Vital Signs: Last Vital Signs Temp 97.8 F 02/17/17 08:05 Pulse 72 02/17/17 08:05 Resp 20 02/17/17 08:05 BP 139/71 02/17/17 08:05 Pulse Ox 99 02/17/17 08:05 - Labs Result Diagrams: 02/17/17 07:00 02/16/17 09:00 Labs: Laboratory Results - last 24 hr 02/16/17 02/16/17 02/16/17 09:00 09:00 10:59 WBC RBC Hgb Hct MCV MCH MCHC RDW Plt Count MPV Neut % (Auto) Lymph % (Auto) [place] % (Auto) Eos % (Auto) Baso % (Auto) Neut # Lymph # [place] # Eos # Baso # Neutrophils % (Manual) Lymphocytes % (Manual) Reactive Lymphs % Monocytes % (Manual) Myelocytes % Platelet Estimate Hypochromasia (manual) Anisocytosis (manual) PT 43.9 H* D INR 3.8 H D Sodium 141 Potassium 4.6 Chloride 100 Carbon Dioxide 37 H Anion Gap 9 L BUN 40 H Creatinine 1.0 Est GFR ( Amer) > 60 Est GFR (Non-Af Amer) > 60 POC Glucose (mg/dL) 142 H Random Glucose 182 H Calcium 9.1 Urine Color Urine Clarity Urine pH Ur Specific [place] Urine Protein Urine Glucose (UA) Urine Ketones Urine Blood Urine Nitrate Urine Bilirubin Urine Urobilinogen Ur Leukocyte Esterase Urine RBC (Auto) Urine Microscopic WBC Ur Squamous Epith Cells Urine Bacteria Urine Yeast (Budding) 02/16/17 02/16/17 02/16/17 16:13 20:39 22:00 WBC RBC Hgb Hct MCV MCH MCHC RDW Plt Count MPV Neut % (Auto) Lymph % (Auto) [place] % (Auto) Eos % (Auto) Baso % (Auto) Neut # Lymph # [place] # Eos # Baso # Neutrophils % (Manual) Lymphocytes % (Manual) Reactive Lymphs % Monocytes % (Manual) Myelocytes % Platelet Estimate Hypochromasia (manual) Anisocytosis (manual) PT INR Sodium Potassium Chloride Carbon Dioxide Anion Gap BUN Creatinine Est GFR ( Amer) Est GFR (Non-Af Amer) POC Glucose (mg/dL) 202 H 211 H Random Glucose Calcium Urine Color Yellow Urine Clarity Cloudy Urine pH 6.0 Ur Specific [place] 1.014 Urine Protein Negative Urine Glucose (UA) 150 Urine Ketones Negative Urine Blood Small Urine Nitrate Negative Urine Bilirubin Negative Urine Urobilinogen 0.2-1.0 Ur Leukocyte Esterase Large Urine RBC (Auto) 12 H Urine Microscopic WBC 106 H Ur Squamous Epith Cells < 1 Urine Bacteria Rare Urine Yeast (Budding) Few H 02/17/17 02/17/17 02/17/17 05:33 07:00 07:00 WBC 12.7 H RBC 3.97 L Hgb 10.7 L Hct 34.0 L MCV 85.7 MCH 26.9 L MCHC 31.3 L RDW 18.1 H Plt Count 259 MPV 7.9 Neut % (Auto) 94.4 H Lymph % (Auto) 2.1 L [place] % (Auto) 3.4 Eos % (Auto) 0.0 Baso % (Auto) 0.1 Neut # 12.0 H Lymph # 0.3 L [place] # 0.4 Eos # 0.0 Baso # 0.0 Neutrophils % (Manual) 95 H Lymphocytes % (Manual) 1 L Reactive Lymphs % 1 H Monocytes % (Manual) 2 Myelocytes % 1 H Platelet Estimate Normal Hypochromasia (manual) Slight Anisocytosis (manual) Slight PT 50.5 H* D INR 4.3 H Sodium Potassium Chloride Carbon Dioxide Anion Gap BUN Creatinine Est GFR ( Amer) Est GFR (Non-Af Amer) POC Glucose (mg/dL) 236 H Random Glucose Calcium Urine Color Urine Clarity Urine pH Ur Specific [place] Urine Protein Urine Glucose (UA) Urine Ketones Urine Blood Urine Nitrate Urine Bilirubin Urine Urobilinogen Ur Leukocyte Esterase Urine RBC (Auto) Urine Microscopic WBC Ur Squamous Epith Cells Urine Bacteria Urine Yeast (Budding)
--- NOTE | 2017-02-17 18:48 | CP.PCM.PN ---
Subjective - Date & Time of Evaluation Date of Evaluation: 02/17/17 Time of Evaluation: 18:48 - Subjective Subjective: I D NOTE CONTINUE MEROPENEM TOTAL OF 10 DAYS Objective - Vital Signs/Intake and Output Vital Signs (last 24 hours): Temp Pulse Resp BP Pulse Ox 97.7 F 82 20 127/71 98 02/17/17 16:46 02/17/17 16:46 02/17/17 16:46 02/17/17 16:46 02/17/17 16:46 - Medications Medications: Current Medications Dextrose (Dextrose 50% Inj) 0 ml IV STAT PRN; Protocol PRN Reason: Hyglycemia Protocol Dextrose (Glutose 15) 0 gm PO ONCE PRN; Protocol PRN Reason: Hypoglycemia Protocol Digoxin (Lanoxin) 0.25 mg PO DAILY [facility] Last Admin: 02/17/17 08:00 Dose: 0.25 mg Docusate Sodium (Colace) 100 mg PO BID PRN PRN Reason: Constipation Finasteride (Proscar) 5 mg PO DAILY [facility] Last Admin: 02/17/17 08:00 Dose: 5 mg Furosemide (Lasix) 40 mg PO DAILY [facility] Last Admin: 02/17/17 11:00 Dose: Not Given Gabapentin (Neurontin) 100 mg PO [facility] Last Admin: 02/16/17 21:09 Dose: 100 mg Glucagon (Glucagen Diagnostic Kit) 0 mg IM STAT PRN; Protocol PRN Reason: Hypoglycemia Protocol Guaifenesin/Dextromethorphan (Robitussin Dm) 10 ml PO Q6 PRN PRN Reason: Cough Methylprednisolone 40 mg/ (Sodium Chloride) 50 mls @ 50 mls/hr IVPB Q12H [facility] Last Admin: 02/17/17 08:13 Dose: 50 mls/hr Meropenem 1 gm/ Sodium (Chloride) 100 mls @ 100 mls/hr IVPB Q12H [facility] Last Admin: 02/17/17 17:23 Dose: 100 mls/hr Vancomycin HCl 1 gm/ Sodium (Chloride) 250 mls @ 166.667 mls/hr IVPB Q12H [facility] Last Admin: 02/17/17 17:24 Dose: 166.667 mls/hr Insulin Detemir (Levemir) 11 units SC HS [facility] Last Admin: 02/16/17 21:10 Dose: 11 units Insulin Human Lispro (Humalog) 3 units SC ACTID [facility] Last Admin: 02/17/17 17:22 Dose: 3 unit Insulin Human Regular (Humulin R) 0 units SC ACHS [facility] PRN Reason: Protocol Last Admin: 02/17/17 17:22 Dose: 1 units Levalbuterol HCl (Xopenex) 1.25 mg INH RQ8 [facility] Last Admin: 02/17/17 08:18 Dose: 1.25 mg Lisinopril (Zestril) 5 mg PO DAILY [facility] Last Admin: 02/17/17 08:00 Dose: 5 mg Metformin HCl (Glucophage) 500 mg PO BID [facility] Last Admin: 02/17/17 17:20 Dose: 500 mg Metoprolol Tartrate (Lopressor) 12.5 mg PO Q12 [facility] Last Admin: 02/17/17 08:00 Dose: 12.5 mg Montelukast Sodium (Singulair) 10 mg PO DAILY@2100 [facility] Last Admin: 02/16/17 20:38 Dose: 10 mg Neomycin/Polymyxin/Hydrocortisone (Cortisporin Otic Soln) 4 drop TID [facility] Last Admin: 02/17/17 17:22 Dose: 4 drop Pantoprazole Sodium (Protonix Ec Tab) 40 mg PO DAILY [facility] Last Admin: 02/17/17 08:00 Dose: 40 mg Spironolactone (Aldactone) 25 mg PO DAILY [facility] Last Admin: 02/17/17 08:01 Dose: 25 mg Tiotropium [place] (Spiriva) 18 mcg INH DAILY [facility] Last Admin: 02/17/17 07:59 Dose: 18 mcg - Labs Labs: 02/17/17 07:00 02/16/17 09:00 PT 50.5 Seconds (9.8-13.1) H* D 02/17/17 07:00 INR 4.3 (0.9-1.2) H 02/17/17 07:00
[2017-02-17] MEDS: Insulin Detemir 100 Units/ml Inj SC SCH (22:00)
[2017-02-18] MEDS: Levalbuterol 1.25 MG/3 ML Inhal Soln UD INH SCH ×3 (00:23→15:30)
[2017-02-18] MEDS: Meropenem 1 GM in Sodium Chloride 0.9% 100 ML IVPB SCH ×2 (04:48→17:40)
--- NOTE | 2017-02-18 06:53 | CP.PCM.PN ---
<Zhanna Oneil - Last Filed: 02/18/17 08:06> Subjective - Date & Time of Evaluation Date of Evaluation: 02/18/17 Time of Evaluation: 07:00 - Subjective Subjective: Patient seen and examined at bedside with Dr. Garcia, no acute events overnight. Reports his dysuria persists with decreased urine output as he is drinking less water because he does not like the taste of it here, informed patient his daughter can bring him the bottled water he likes. Otherwise denies fevers/chill, n/v, chest pain, SOB, weakness or dizziness. Objective - Vital Signs/Intake and Output Vital Signs (last 24 hours): Temp Pulse Resp BP Pulse Ox 97.7 F 70 20 135/75 96 02/17/17 21:26 02/17/17 22:03 02/17/17 21:26 02/17/17 22:03 02/17/17 21:26 - Medications Medications: Current Medications Dextrose (Dextrose 50% Inj) 0 ml IV STAT PRN; Protocol PRN Reason: Hyglycemia Protocol Dextrose (Glutose 15) 0 gm PO ONCE PRN; Protocol PRN Reason: Hypoglycemia Protocol Digoxin (Lanoxin) 0.25 mg PO DAILY [facility] Last Admin: 02/17/17 08:00 Dose: 0.25 mg Docusate Sodium (Colace) 100 mg PO BID PRN PRN Reason: Constipation Finasteride (Proscar) 5 mg PO DAILY [facility] Last Admin: 02/17/17 08:00 Dose: 5 mg Furosemide (Lasix) 40 mg PO DAILY [facility] Last Admin: 02/17/17 11:00 Dose: Not Given Gabapentin (Neurontin) 100 mg PO HS [facility] Last Admin: 02/17/17 22:04 Dose: 100 mg Glucagon (Glucagen Diagnostic Kit) 0 mg IM STAT PRN; Protocol PRN Reason: Hypoglycemia Protocol Guaifenesin/Dextromethorphan (Robitussin Dm) 10 ml PO Q6 PRN PRN Reason: Cough Meropenem 1 gm/ Sodium (Chloride) 100 mls @ 100 mls/hr IVPB Q12H [facility] Last Admin: 02/18/17 04:48 Dose: 100 mls/hr Vancomycin HCl 1 gm/ Sodium (Chloride) 250 mls @ 166.667 mls/hr IVPB Q12H [facility] Last Admin: 07/25/17 06:04 Dose: 166.667 mls/hr Insulin Detemir (Levemir) 11 units SC HS [facility] Last Admin: 02/17/17 22:00 Dose: 11 units Insulin Human Lispro (Humalog) 3 units SC ACTID [facility] Last Admin: 02/17/17 17:22 Dose: 3 unit Insulin Human Regular (Humulin R) 0 units SC ACHS [facility] PRN Reason: Protocol Last Admin: 02/17/17 21:59 Dose: Not Given Levalbuterol HCl (Xopenex) 1.25 mg INH RQ8 [facility] Last Admin: 02/18/17 00:23 Dose: 1.25 mg Lisinopril (Zestril) 5 mg PO DAILY [facility] Last Admin: 02/17/17 08:00 Dose: 5 mg Metformin HCl (Glucophage) 500 mg PO BID [facility] Last Admin: 02/17/17 17:20 Dose: 500 mg Metoprolol Tartrate (Lopressor) 12.5 mg PO Q12 [facility] Last Admin: 02/17/17 22:03 Dose: 12.5 mg Montelukast Sodium (Singulair) 10 mg PO DAILY@2100 [facility] Last Admin: 02/17/17 22:05 Dose: 10 mg Neomycin/Polymyxin/Hydrocortisone (Cortisporin Otic Soln) 4 drop TID [facility] Last Admin: 02/17/17 17:22 Dose: 4 drop Pantoprazole Sodium (Protonix Ec Tab) 40 mg PO DAILY [facility] Last Admin: 02/17/17 08:00 Dose: 40 mg Prednisone (Prednisone Tab) 60 mg PO DAILY [facility] Spironolactone (Aldactone) 25 mg PO DAILY [facility] Last Admin: 02/17/17 08:01 Dose: 25 mg Tiotropium [place] (Spiriva) 18 mcg INH DAILY [facility] Last Admin: 02/17/17 07:59 Dose: 18 mcg - Labs Labs: 02/17/17 07:00 02/16/17 09:00 PT 50.5 Seconds (9.8-13.1) H* D 02/17/17 07:00 INR 4.3 (0.9-1.2) H 02/17/17 07:00 - Constitutional Appears: No Acute Distress - Head Exam Head Exam: ATRAUMATIC, NORMOCEPHALIC - Eye Exam Eye Exam: EOMI, PERRL - ENT Exam ENT Exam: Mucous Membranes Moist - Neck Exam Neck Exam: Full ROM - Respiratory Exam Respiratory Exam: Rhonchi (diffuse in b/l lower extremities), NORMAL BREATHING PATTERN - Cardiovascular Exam Cardiovascular Exam: REGULAR RHYTHM, +S1, +S2 - GI/Abdominal Exam GI & Abdominal Exam: Soft. absent: Tenderness - Extremities Exam Extremities Exam: Full ROM. absent: Calf Tenderness, Pedal Edema - Back Exam Back Exam: absent: CVA tenderness (L), CVA tenderness (R) - Neurological Exam Neurological Exam: Alert, Awake, CN II-XII Intact, Oriented x3 - Psychiatric Exam Psychiatric exam: Normal Affect, Normal Mood - Skin Skin Exam: Dry, Intact, Warm Assessment and Plan - Assessment and Plan (Free Text) Assessment: 82 yr old M admitted to TCU for deconditioning and IV antibiotics for Pneumonia. Patient stable, SOB has resolved. Cardiology, Pulmonology and ID on board. Repeat CXR showed residual pneumonia. Warfarin held today as INR is 3.5 Community Acquired Pneumonia -acute, leukocytosis increased to 12.7 (02/17/17) -repeat CXR: small right lower lobe infiltrate - Day 10 Vancomycin 1gm IV Q12H ; Day 6 Meropenem 1g Q12H (will complete 10 days ) -sputum culture: positive for Psuedomona aerug. -ID on board: Dr. Painting COPD Exacerbation -acute, symptoms improving: SOB/increased sputum production -Duoneb 3 ml Inh Q6h PRN for SOB -Prednisone 60mg PO QD (will taper daily) -continue home meds: Singulair 10mg PO QD, adjusted Spiriva to 18 mcg INH QD, -Supplemental O2 via nasal cannula to maintain O2 sat between 88-92% UTI -UA positive for large leukocyte esterasem microscopic WBC, rare bacteria and few yeast -start Fluconazole 200mg PO QD (to complete 14 days) -UCx results pending Congestive Heart Failure -Systolic (Severe) -chronic, ProBNP 5620 -continue home meds: Furosemide 40mg IV QD, Spironolactone 25mg PO QD, Lisinopril 5mg PO QD -Cardiology consult appreciated-Dr. Godfrey: will follow recommendations -Echocardiogram: LVEF 20-25% , severely impaired systolic function, severe MR and severe Pulm HTN(see full report) Atrial Fibrillation -stable, chronic -EKG showed Atrial flutter with 2:1 conduction -Cardiology consult appreciated-Dr. Godfrey: start Digoxin 0.25mg PO QD, start Metoprolol 12.5mg PO Q12H (d/c Amiodarione and Diltiazem) -daily INR , daily adjustment of Warfarin dose -Warfarin held today as INR is 3.5 NIDDM -uncontrolled, chronic, HbA1c 8.4 -continue home med: Metformin 500 mg PO BID -adjusted Insulin Lispro 5 units SCTID, Insulin Detemir 14 units SC HS -Regular Human Insulin SC ACHS low dose protocol -Gabapentin 100mg PO QHS for diabetic peripheral neuropathy -hypoglycemia protocol -lipid panel triglyc 62/ chol 137/ LDL 76/ HDL 35 Anemia of Chronic Disease -stable, chronic, likely secondary to COPD/Heart Failure -Iron 17, TIBC 235, transferrin 170, ferritin 97.5, C-reactive protein elevated , ESR 67 DVT/GI prophylaxis -SCD's for now, as patient is anticoagulated with Warfarin -Protonix 40mg PO QD <Luis Garcia - Last Filed: 02/20/17 06:54> Objective - Vital Signs/Intake and Output Vital Signs (last 24 hours): Temp Pulse Resp BP Pulse Ox 97.5 F L 88 20 124/70 95 02/19/17 20:20 02/19/17 21:28 02/19/17 20:20 02/19/17 20:20 02/19/17 20:20 - Medications Medications: Current Medications Dextrose (Dextrose 50% Inj) 0 ml IV STAT PRN; Protocol PRN Reason: Hyglycemia Protocol Dextrose (Glutose 15) 0 gm PO ONCE PRN; Protocol PRN Reason: Hypoglycemia Protocol Digoxin (Lanoxin) 0.25 mg PO DAILY [facility] Last Admin: 02/19/17 09:14 Dose: 0.25 mg Finasteride (Proscar) 5 mg PO DAILY [facility] Last Admin: 02/19/17 09:19 Dose: 5 mg Fluconazole (Diflucan) 200 mg PO DAILY [facility] Last Admin: 02/19/17 09:14 Dose: 200 mg Furosemide (Lasix) 40 mg PO DAILY [facility] Last Admin: 02/19/17 09:15 Dose: 40 mg Gabapentin (Neurontin) 100 mg PO HS [facility] Last Admin: 02/19/17 21:29 Dose: 100 mg Glucagon (Glucagen Diagnostic Kit) 0 mg IM STAT PRN; Protocol PRN Reason: Hypoglycemia Protocol Guaifenesin/Dextromethorphan (Robitussin Dm) 10 ml PO Q6 PRN PRN Reason: Cough Meropenem 1 gm/ Sodium (Chloride) 100 mls @ 100 mls/hr IVPB Q12H [facility] Last Admin: 02/20/17 04:10 Dose: 100 mls/hr Vancomycin HCl 1 gm/ Sodium (Chloride) 250 mls @ 166.667 mls/hr IVPB Q12H [facility] Last Admin: 02/20/17 04:11 Dose: 166.667 mls/hr Insulin Detemir (Levemir) 14 units SC HS [facility] Last Admin: 02/19/17 21:29 Dose: 14 u Insulin Human Lispro (Humalog) 5 units SC ACTID [facility] Last Admin: 02/19/17 18:16 Dose: 2 u Insulin Human Regular (Humulin R) 0 units SC ACHS [facility] PRN Reason: Protocol Last Admin: 02/20/17 06:39 Dose: Not Given Levalbuterol HCl (Xopenex) 1.25 mg INH RQ8 [facility] Last Admin: 02/20/17 00:35 Dose: 1.25 mg Lisinopril (Zestril) 5 mg PO DAILY [facility] Last Admin: 02/19/17 09:21 Dose: 5 mg Metformin HCl (Glucophage) 500 mg PO BID [facility] Last Admin: 02/19/17 18:16 Dose: 500 mg Metoprolol Tartrate (Lopressor) 12.5 mg PO Q12 [facility] Last Admin: 02/19/17 21:28 Dose: 12.5 mg Montelukast Sodium (Singulair) 10 mg PO DAILY@2100 [facility] Last Admin: 02/19/17 21:29 Dose: 10 mg Neomycin/Polymyxin/Hydrocortisone (Cortisporin Otic Soln) 4 drop TID [facility] Last Admin: 02/19/17 18:16 Dose: 4 drop Pantoprazole Sodium (Protonix Ec Tab) 40 mg PO DAILY [facility] Last Admin: 02/19/17 09:20 Dose: 40 mg Prednisone (Prednisone Tab) 50 mg PO DAILY [facility] Last Admin: 02/19/17 09:18 Dose: 50 mg Spironolactone (Aldactone) 25 mg PO DAILY [facility] Last Admin: 02/19/17 09:12 Dose: 25 mg Tiotropium [place] (Spiriva) 18 mcg INH DAILY [facility] Last Admin: 02/19/17 09:20 Dose: 18 mcg - Labs Labs: 02/17/17 07:00 02/18/17 06:30 PT 42.1 Seconds (9.8-13.1) H* 02/19/17 06:30 INR 3.6 (0.9-1.2) H 02/19/17 06:30 Assessment and Plan (1) Unsteady gait Status: Acute (2) Acute bronchitis with chronic obstructive pulmonary disease (COPD) Status: Acute (3) Atrial flutter Status: Acute (4) COPD exacerbation Status: Acute (5) Uncontrolled diabetes mellitus Status: Acute (6) CHF (congestive heart failure), NYHA class IV Status: Chronic (7) Chronic a-fib Status: Chronic (8) Anemia of chronic disease Status: Chronic Attending/Attestation - Attestation I have personally seen and examined this patient.: Yes I have fully participated in the care of the patient.: Yes I have reviewed all pertinent clinical information, including history, physical exam and plan: Yes
[2017-02-18] MEDS: Insulin Lispro (humaLOG) 100 Units/ml Inj SC SCH ×3 (06:58→17:41)
[2017-02-18] MEDS: Insulin Regular 100 units/ml SC SCH ×4 (07:01→22:09)
[2017-02-18 07:34] LABS: ALKALINE PHOSPHATASE 66 U/L (38-126); ALT/SGPT 50 U/L (21-72); AST/SGOT 35 U/L (17-59); BILIRUBIN,TOTAL 0.4 mg/dl (0.2-1.3); BLOOD UREA NITROGEN 35 mg/dl (9-20); CALCIUM 8.9 mg/dL (8.4-10.2); CARBON DIOXIDE 34 mmol/L (22-30); CHLORIDE 102 mmol/L (98-107); GFR AFRICAN-AMERICAN > 60; GLUCOSE,RANDOM 260 mg/dL (75-110); SODIUM 144 mmol/l (132-148); TOTAL PROTEIN 5.8 G/DL (6.3-8.2)
[2017-02-18 07:40] LABS: ALB/GLOB RATIO 1.2 (1.0-2.1)
--- NOTE | 2017-02-18 08:49 | CP.PCM.PN ---
Subjective - Date & Time of Evaluation Date of Evaluation: 02/18/17 Time of Evaluation: 08:30 - Subjective Subjective: Has participated in PT and tolerated it well (!) Cough and expectorate less HR 78 BPM, irreg BP 136/68 mm Hg JVP flat, no oedema over feet/ankle Apical syst murmur of MR+ Bilat wheez+, no rales INR down to 3.5 BUN/Creatinin 35/0.9 mg% K+ 5mEq/L Doing well on present Rx Warfarin to be resumes when INR is therapeutic Objective - Vital Signs/Intake and Output Vital Signs (last 24 hours): Temp Pulse Resp BP Pulse Ox 97.0 F L 65 20 137/72 95 02/18/17 07:58 02/18/17 07:58 02/18/17 07:58 02/18/17 07:58 02/18/17 07:58 - Medications Medications: Current Medications Dextrose (Dextrose 50% Inj) 0 ml IV STAT PRN; Protocol PRN Reason: Hyglycemia Protocol Dextrose (Glutose 15) 0 gm PO ONCE PRN; Protocol PRN Reason: Hypoglycemia Protocol Digoxin (Lanoxin) 0.25 mg PO DAILY [facility] Last Admin: 02/17/17 08:00 Dose: 0.25 mg Docusate Sodium (Colace) 100 mg PO BID PRN PRN Reason: Constipation Finasteride (Proscar) 5 mg PO DAILY [facility] Last Admin: 02/17/17 08:00 Dose: 5 mg Fluconazole (Diflucan) 200 mg PO DAILY [facility] Furosemide (Lasix) 40 mg PO DAILY [facility] Last Admin: 02/17/17 11:00 Dose: Not Given Gabapentin (Neurontin) 100 mg PO HS [facility] Last Admin: 02/17/17 22:04 Dose: 100 mg Glucagon (Glucagen Diagnostic Kit) 0 mg IM STAT PRN; Protocol PRN Reason: Hypoglycemia Protocol Guaifenesin/Dextromethorphan (Robitussin Dm) 10 ml PO Q6 PRN PRN Reason: Cough Meropenem 1 gm/ Sodium (Chloride) 100 mls @ 100 mls/hr IVPB Q12H [facility] Last Admin: 02/18/17 04:48 Dose: 100 mls/hr Vancomycin HCl 1 gm/ Sodium (Chloride) 250 mls @ 166.667 mls/hr IVPB Q12H [facility] Last Admin: 02/18/17 06:04 Dose: 166.667 mls/hr Insulin Detemir (Levemir) 14 units SC HS [facility] Insulin Human Lispro (Humalog) 5 units SC ACTID [facility] Insulin Human Regular (Humulin R) 0 units SC ACHS [facility] PRN Reason: Protocol Last Admin: 02/18/17 07:01 Dose: 4 units Levalbuterol HCl (Xopenex) 1.25 mg INH RQ8 [facility] Last Admin: 02/18/17 07:35 Dose: 1.25 mg Lisinopril (Zestril) 5 mg PO DAILY [facility] Last Admin: 02/17/17 08:00 Dose: 5 mg Metformin HCl (Glucophage) 500 mg PO BID [facility] Last Admin: 02/17/17 17:20 Dose: 500 mg Metoprolol Tartrate (Lopressor) 12.5 mg PO Q12 [facility] Last Admin: 02/17/17 22:03 Dose: 12.5 mg Montelukast Sodium (Singulair) 10 mg PO DAILY@2100 [facility] Last Admin: 02/17/17 22:05 Dose: 10 mg Neomycin/Polymyxin/Hydrocortisone (Cortisporin Otic Soln) 4 drop TID [facility] Last Admin: 02/17/17 17:22 Dose: 4 drop Pantoprazole Sodium (Protonix Ec Tab) 40 mg PO DAILY [facility] Last Admin: 02/17/17 08:00 Dose: 40 mg Prednisone (Prednisone Tab) 60 mg PO DAILY [facility] Spironolactone (Aldactone) 25 mg PO DAILY [facility] Last Admin: 02/17/17 08:01 Dose: 25 mg Tiotropium [place] (Spiriva) 18 mcg INH DAILY [facility] Last Admin: 02/17/17 07:59 Dose: 18 mcg - Labs Labs: 02/17/17 07:00 02/18/17 06:30 PT 40.1 Seconds (9.8-13.1) H* D 02/18/17 06:30 INR 3.5 (0.9-1.2) H 02/18/17 06:30
[2017-02-18] MEDS: Tiotropium 18 mcg Cap For Inhalation INH SCH (08:53)
[2017-02-18] MEDS: Digoxin 250 mcg (0.25 mg) Tab PO SCH (08:53)
[2017-02-18] MEDS: Pantoprazole 40 mg EC Tab PO SCH (08:53)
--- NOTE | 2017-02-18 15:08 | CP.PCM.PN ---
Subjective - Date & Time of Evaluation Date of Evaluation: 02/18/17 Time of Evaluation: 15:08 - Subjective Subjective: NO CHEST PAINS/SOB AMBULATING WITHOUT ASSISTANCE Objective - Vital Signs/Intake and Output Vital Signs (last 24 hours): Temp Pulse Resp BP Pulse Ox 97.0 F L 65 20 137/72 95 02/18/17 07:58 02/18/17 08:52 02/18/17 07:58 02/18/17 08:52 02/18/17 07:58 - Medications Medications: Current Medications Dextrose (Dextrose 50% Inj) 0 ml IV STAT PRN; Protocol PRN Reason: Hyglycemia Protocol Dextrose (Glutose 15) 0 gm PO ONCE PRN; Protocol PRN Reason: Hypoglycemia Protocol Digoxin (Lanoxin) 0.25 mg PO DAILY [facility] Last Admin: 02/18/17 08:53 Dose: 0.25 mg Finasteride (Proscar) 5 mg PO DAILY [facility] Last Admin: 02/18/17 08:53 Dose: 5 mg Fluconazole (Diflucan) 200 mg PO DAILY [facility] Last Admin: 02/18/17 12:08 Dose: 200 mg Furosemide (Lasix) 40 mg PO DAILY [facility] Last Admin: 02/18/17 08:51 Dose: 40 mg Gabapentin (Neurontin) 100 mg PO HS [facility] Last Admin: 02/17/17 22:04 Dose: 100 mg Glucagon (Glucagen Diagnostic Kit) 0 mg IM STAT PRN; Protocol PRN Reason: Hypoglycemia Protocol Guaifenesin/Dextromethorphan (Robitussin Dm) 10 ml PO Q6 PRN PRN Reason: Cough Meropenem 1 gm/ Sodium (Chloride) 100 mls @ 100 mls/hr IVPB Q12H [facility] Last Admin: 02/18/17 04:48 Dose: 100 mls/hr Vancomycin HCl 1 gm/ Sodium (Chloride) 250 mls @ 166.667 mls/hr IVPB Q12H [facility] Last Admin: 02/18/17 06:04 Dose: 166.667 mls/hr Insulin Detemir (Levemir) 14 units SC HS [facility] Insulin Human Lispro (Humalog) 5 units SC ACTID [facility] Last Admin: 02/18/17 12:09 Dose: 5 u Insulin Human Regular (Humulin R) 0 units SC ACHS [facility] PRN Reason: Protocol Last Admin: 02/18/17 12:10 Dose: 2 units Levalbuterol HCl (Xopenex) 1.25 mg INH RQ8 [facility] Last Admin: 02/18/17 07:35 Dose: 1.25 mg Lisinopril (Zestril) 5 mg PO DAILY [facility] Last Admin: 02/18/17 08:52 Dose: 5 mg Metformin HCl (Glucophage) 500 mg PO BID [facility] Last Admin: 02/18/17 08:51 Dose: 500 mg Metoprolol Tartrate (Lopressor) 12.5 mg PO Q12 [facility] Last Admin: 02/18/17 08:50 Dose: 12.5 mg Montelukast Sodium (Singulair) 10 mg PO DAILY@2100 [facility] Last Admin: 02/17/17 22:05 Dose: 10 mg Neomycin/Polymyxin/Hydrocortisone (Cortisporin Otic Soln) 4 drop TID [facility] Last Admin: 02/18/17 12:08 Dose: 4 drop Pantoprazole Sodium (Protonix Ec Tab) 40 mg PO DAILY [facility] Last Admin: 02/18/17 08:53 Dose: 40 mg Prednisone (Prednisone Tab) 60 mg PO DAILY [facility] Last Admin: 02/18/17 08:55 Dose: 60 mg Spironolactone (Aldactone) 25 mg PO DAILY [facility] Last Admin: 02/18/17 08:55 Dose: 25 mg Tiotropium [place] (Spiriva) 18 mcg INH DAILY [facility] Last Admin: 02/18/17 08:53 Dose: 18 mcg - Labs Labs: 02/17/17 07:00 02/18/17 06:30 PT 40.1 Seconds (9.8-13.1) H* D 02/18/17 06:30 INR 3.5 (0.9-1.2) H 02/18/17 06:30 - Constitutional Appears: No Acute Distress - Head Exam Head Exam: ATRAUMATIC, NORMAL INSPECTION, NORMOCEPHALIC - Eye Exam Eye Exam: EOMI, Normal appearance, PERRL Pupil Exam: NORMAL ACCOMODATION, PERRL - ENT Exam ENT Exam: Mucous Membranes Moist, Normal Exam - Neck Exam Neck Exam: Full ROM, Normal Inspection. absent: Lymphadenopathy - Respiratory Exam Respiratory Exam: Clear to Ausculation Bilateral, Prolonged Expiratory Phase, NORMAL BREATHING PATTERN - Cardiovascular Exam Cardiovascular Exam: REGULAR RHYTHM, +S1, +S2. absent: Murmur - GI/Abdominal Exam GI & Abdominal Exam: Soft, Normal Bowel Sounds. absent: Tenderness - Rectal Exam Rectal Exam: NORMAL INSPECTION - Extremities Exam Extremities Exam: Full ROM, Normal Capillary Refill, Normal Inspection. absent : Joint Swelling, Pedal Edema - Back Exam Back Exam: NORMAL INSPECTION - Neurological Exam Neurological Exam: Alert, Awake, CN II-XII Intact, Normal Gait, Oriented x3 - Psychiatric Exam Psychiatric exam: Normal Affect, Normal Mood - Skin Skin Exam: Dry, Intact, Normal Color, Warm Assessment and Plan - Assessment and Plan (Free Text) Assessment: CHF-IMPROVED PNEUMONIA-IMPROVED COPD-STABLE Plan: NO FURTHER PULMONARY INTERVENTION FOR NOW WILL SIGN OFF CASE AND SEE AGAIN AT YOUR REQUEST
[2017-02-18] MEDS: Insulin Detemir 100 Units/ml Inj SC SCH (22:10)
[2017-02-19] MEDS: Levalbuterol 1.25 MG/3 ML Inhal Soln UD INH SCH ×3 (00:28→16:43)
[2017-02-19] MEDS: Insulin Lispro (humaLOG) 100 Units/ml Inj SC SCH ×3 (06:50→18:16)
[2017-02-19] MEDS: Insulin Regular 100 units/ml SC SCH ×4 (06:51→22:53)
--- NOTE | 2017-02-19 08:14 | CP.PCM.PN ---
<Zhanna Oneil - Last Filed: 02/19/17 12:17> Subjective - Date & Time of Evaluation Date of Evaluation: 02/19/17 Time of Evaluation: 07:15 - Subjective Subjective: Patient seen and examined at bedside with Dr. Aguirre. Reports he has dysuria and decreased urinary stream. Patient was informed his urine culture was negative and due to his current acute symptoms and PMHx of penile cancer, urology will be consulted. Otherwise patient denies SOB, weakness, dizziness, chest pain or palpitations. Is tolerating PO diet and PT/OT well. Objective - Vital Signs/Intake and Output Vital Signs (last 24 hours): Temp Pulse Resp BP Pulse Ox 97.3 F L 75 20 119/58 L 94 L 02/19/17 08:06 02/19/17 08:06 02/19/17 08:06 02/19/17 08:06 02/19/17 08:06 - Medications Medications: Current Medications Dextrose (Dextrose 50% Inj) 0 ml IV STAT PRN; Protocol PRN Reason: Hyglycemia Protocol Dextrose (Glutose 15) 0 gm PO ONCE PRN; Protocol PRN Reason: Hypoglycemia Protocol Digoxin (Lanoxin) 0.25 mg PO DAILY [facility] Last Admin: 02/18/17 08:53 Dose: 0.25 mg Finasteride (Proscar) 5 mg PO DAILY [facility] Last Admin: 02/18/17 08:53 Dose: 5 mg Fluconazole (Diflucan) 200 mg PO DAILY [facility] Last Admin: 02/18/17 12:08 Dose: 200 mg Furosemide (Lasix) 40 mg PO DAILY [facility] Last Admin: 02/18/17 08:51 Dose: 40 mg Gabapentin (Neurontin) 100 mg PO HS [facility] Last Admin: 02/18/17 21:00 Dose: 100 mg Glucagon (Glucagen Diagnostic Kit) 0 mg IM STAT PRN; Protocol PRN Reason: Hypoglycemia Protocol Guaifenesin/Dextromethorphan (Robitussin Dm) 10 ml PO Q6 PRN PRN Reason: Cough Meropenem 1 gm/ Sodium (Chloride) 100 mls @ 100 mls/hr IVPB Q12H [facility] Last Admin: 02/18/17 17:40 Dose: 100 mls/hr Vancomycin HCl 1 gm/ Sodium (Chloride) 250 mls @ 166.667 mls/hr IVPB Q12H [facility] Last Admin: 02/18/17 18:45 Dose: 166.667 mls/hr Insulin Detemir (Levemir) 14 units SC HS [facility] Last Admin: 02/18/17 22:10 Dose: 14 u Insulin Human Lispro (Humalog) 5 units SC ACTID [facility] Last Admin: 02/19/17 06:50 Dose: 5 u Insulin Human Regular (Humulin R) 0 units SC ACHS [facility] PRN Reason: Protocol Last Admin: 02/19/17 06:51 Dose: 1 units Levalbuterol HCl (Xopenex) 1.25 mg INH RQ8 [facility] Last Admin: 02/19/17 07:48 Dose: 1.25 mg Lisinopril (Zestril) 5 mg PO DAILY [facility] Last Admin: 02/18/17 08:52 Dose: 5 mg Metformin HCl (Glucophage) 500 mg PO BID [facility] Last Admin: 02/18/17 17:42 Dose: 500 mg Metoprolol Tartrate (Lopressor) 12.5 mg PO Q12 [facility] Last Admin: 02/18/17 21:00 Dose: 12.5 mg Montelukast Sodium (Singulair) 10 mg PO DAILY@2100 [facility] Last Admin: 02/18/17 21:00 Dose: 10 mg Neomycin/Polymyxin/Hydrocortisone (Cortisporin Otic Soln) 4 drop TID [facility] Last Admin: 02/18/17 17:38 Dose: 4 drop Pantoprazole Sodium (Protonix Ec Tab) 40 mg PO DAILY [facility] Last Admin: 02/18/17 08:53 Dose: 40 mg Prednisone (Prednisone Tab) 50 mg PO DAILY [facility] Spironolactone (Aldactone) 25 mg PO DAILY [facility] Last Admin: 02/18/17 08:55 Dose: 25 mg Tiotropium [place] (Spiriva) 18 mcg INH DAILY [facility] Last Admin: 02/18/17 08:53 Dose: 18 mcg - Labs Labs: 02/17/17 07:00 02/18/17 06:30 PT 42.1 Seconds (9.8-13.1) H* 02/19/17 06:30 INR 3.6 (0.9-1.2) H 02/19/17 06:30 - Constitutional Appears: No Acute Distress - Head Exam Head Exam: ATRAUMATIC, NORMOCEPHALIC - Eye Exam Eye Exam: EOMI, PERRL - ENT Exam ENT Exam: Mucous Membranes Moist - Neck Exam Neck Exam: Full ROM. absent: Lymphadenopathy - Respiratory Exam Respiratory Exam: NORMAL BREATHING PATTERN (bronchial breath sounds) - Cardiovascular Exam Cardiovascular Exam: REGULAR RHYTHM, +S1, +S2 - GI/Abdominal Exam GI & Abdominal Exam: Soft, Normal Bowel Sounds - Extremities Exam Extremities Exam: Full ROM. absent: Calf Tenderness, Pedal Edema - Back Exam Back Exam: absent: CVA tenderness (L), CVA tenderness (R) - Neurological Exam Neurological Exam: Alert, Awake, CN II-XII Intact, Oriented x3 - Psychiatric Exam Psychiatric exam: Normal Affect, Normal Mood - Skin Skin Exam: Dry, Intact, Warm Assessment and Plan - Assessment and Plan (Free Text) Assessment: 82 yr old M admitted to TCU for deconditioning and IV antibiotics for Pneumonia. Patient stable, SOB has resolved. Cardiology, Pulmonology and ID on board. Repeat CXR showed residual pneumonia. Warfarin held today as INR is 3.6. UCx showed no growth. Urology consulted. Community Acquired Pneumonia -acute, leukocytosis increased to 12.7 (02/17/17) -repeat CXR: small right lower lobe infiltrate - Day 11 Vancomycin 1gm IV Q12H ; Day 7 Meropenem 1g Q12H (will complete 10 days ) -sputum culture: positive for Psuedomona aerug. -ID on board: Dr. Painting -f/u CBC COPD Exacerbation -acute, symptoms improving: SOB/increased sputum production -Duoneb 3 ml Inh Q6h PRN for SOB -Prednisone 50mg PO QD (will taper daily) -continue home meds: Singulair 10mg PO QD, adjusted Spiriva to 18 mcg INH QD, -Supplemental O2 via nasal cannula to maintain O2 sat between 88-92% UTI -UA positive for large leukocyte esterase, microscopic WBC, rare bacteria and few yeast -start Fluconazole 200mg PO QD (to complete 14 days) -UCx no growth -Urology consult appreciated: dysuria and decreased urinary stream Congestive Heart Failure -Systolic (Severe) -chronic, ProBNP 5620 -continue home meds: Furosemide 40mg IV QD, Spironolactone 25mg PO QD, Lisinopril 5mg PO QD -Cardiology consult appreciated-Dr. Godfrey: will follow recommendations -Echocardiogram: LVEF 20-25% , severely impaired systolic function, severe MR and severe Pulm HTN(see full report) Atrial Fibrillation -stable, chronic -EKG showed Atrial flutter with 2:1 conduction -Cardiology consult appreciated-Dr. Godfrey: start Digoxin 0.25mg PO QD, start Metoprolol 12.5mg PO Q12H (d/c Amiodarione and Diltiazem) -daily INR , daily adjustment of Warfarin dose -Warfarin held today as INR is 3.6 NIDDM -uncontrolled, chronic, HbA1c 8.4 -continue home med: Metformin 500 mg PO BID -adjusted Insulin Lispro 5 units SCTID, Insulin Detemir 14 units SC HS -Regular Human Insulin SC ACHS low dose protocol -Gabapentin 100mg PO QHS for diabetic peripheral neuropathy -hypoglycemia protocol -lipid panel triglyc 62/ chol 137/ LDL 76/ HDL 35 Anemia of Chronic Disease -stable, chronic, likely secondary to COPD/Heart Failure -Iron 17, TIBC 235, transferrin 170, ferritin 97.5, C-reactive protein elevated , ESR 67 DVT/GI prophylaxis -SCD's for now, as patient is anticoagulated with Warfarin -Protonix 40mg PO QD <Chris Aguirre - Last Filed: 02/20/17 10:26> Objective - Vital Signs/Intake and Output Vital Signs (last 24 hours): Temp Pulse Resp BP Pulse Ox 96.3 F L 69 20 126/68 95 02/20/17 08:47 02/20/17 08:58 02/20/17 08:47 02/20/17 08:58 02/20/17 08:58 - Medications Medications: Current Medications Dextrose (Dextrose 50% Inj) 0 ml IV STAT PRN; Protocol PRN Reason: Hyglycemia Protocol Dextrose (Glutose 15) 0 gm PO ONCE PRN; Protocol PRN Reason: Hypoglycemia Protocol Digoxin (Lanoxin) 0.25 mg PO DAILY [facility] Last Admin: 02/20/17 08:19 Dose: 0.25 mg Finasteride (Proscar) 5 mg PO DAILY [facility] Last Admin: 02/20/17 08:21 Dose: 5 mg Fluconazole (Diflucan) 200 mg PO DAILY [facility] Last Admin: 02/20/17 08:20 Dose: 200 mg Furosemide (Lasix) 40 mg PO DAILY [facility] Last Admin: 02/20/17 08:20 Dose: 40 mg Gabapentin (Neurontin) 100 mg PO HS [facility] Last Admin: 02/19/17 21:29 Dose: 100 mg Glucagon (Glucagen Diagnostic Kit) 0 mg IM STAT PRN; Protocol PRN Reason: Hypoglycemia Protocol Guaifenesin/Dextromethorphan (Robitussin Dm) 10 ml PO Q6 PRN PRN Reason: Cough Meropenem 1 gm/ Sodium (Chloride) 100 mls @ 100 mls/hr IVPB Q12H [facility] Last Admin: 02/20/17 04:10 Dose: 100 mls/hr Vancomycin HCl 1 gm/ Sodium (Chloride) 250 mls @ 166.667 mls/hr IVPB Q12H [facility] Last Admin: 02/20/17 04:11 Dose: 166.667 mls/hr Insulin Detemir (Levemir) 14 units SC HS [facility] Last Admin: 02/19/17 21:29 Dose: 14 u Insulin Human Lispro (Humalog) 5 units SC ACTID [facility] Last Admin: 02/20/17 08:17 Dose: Not Given Insulin Human Regular (Humulin R) 0 units SC ACHS [facility] PRN Reason: Protocol Last Admin: 02/20/17 06:39 Dose: Not Given Levalbuterol HCl (Xopenex) 1.25 mg INH RQ8 [facility] Last Admin: 02/20/17 08:07 Dose: 1.25 mg Lisinopril (Zestril) 5 mg PO DAILY [facility] Last Admin: 02/20/17 08:19 Dose: 5 mg Metformin HCl (Glucophage) 500 mg PO BID [facility] Last Admin: 02/20/17 08:21 Dose: 500 mg Metoprolol Tartrate (Lopressor) 12.5 mg PO Q12 [facility] Last Admin: 02/20/17 08:20 Dose: 12.5 mg Montelukast Sodium (Singulair) 10 mg PO DAILY@2100 [facility] Last Admin: 02/19/17 21:29 Dose: 10 mg Neomycin/Polymyxin/Hydrocortisone (Cortisporin Otic Soln) 4 drop TID [facility] Last Admin: 02/20/17 08:21 Dose: 4 drop Pantoprazole Sodium (Protonix Ec Tab) 40 mg PO DAILY [facility] Last Admin: 02/20/17 08:20 Dose: 40 mg Prednisone (Prednisone Tab) 50 mg PO DAILY [facility] Last Admin: 02/20/17 08:20 Dose: 50 mg Spironolactone (Aldactone) 25 mg PO DAILY [facility] Last Admin: 02/20/17 08:21 Dose: 25 mg Tiotropium [place] (Spiriva) 18 mcg INH DAILY [facility] Last Admin: 02/20/17 08:19 Dose: 18 mcg - Labs Labs: 02/17/17 07:00 02/18/17 06:30 PT 36.2 Seconds (9.8-13.1) H D 02/20/17 06:05 INR 3.1 (0.9-1.2) H 02/20/17 06:05 Attending/Attestation - Attestation I have personally seen and examined this patient.: Yes I have fully participated in the care of the patient.: Yes I have reviewed all pertinent clinical information, including history, physical exam and plan: Yes
[2017-02-19] MEDS: Digoxin 250 mcg (0.25 mg) Tab PO SCH (09:14)
[2017-02-19] MEDS: Pantoprazole 40 mg EC Tab PO SCH (09:20)
[2017-02-19] MEDS: Tiotropium 18 mcg Cap For Inhalation INH SCH (09:20)
[2017-02-19] MEDS: Insulin Detemir 100 Units/ml Inj SC SCH (21:29)
[2017-02-20] MEDS: Levalbuterol 1.25 MG/3 ML Inhal Soln UD INH SCH ×4 (00:35→23:00)
[2017-02-20] MEDS: Meropenem 1 GM in Sodium Chloride 0.9% 100 ML IVPB SCH ×2 (04:10→16:26)
[2017-02-20] MEDS: Insulin Regular 100 units/ml SC SCH ×4 (06:39→21:11)
[2017-02-20] MEDS: Insulin Lispro (humaLOG) 100 Units/ml Inj SC SCH ×3 (08:17→16:24)
[2017-02-20] MEDS: Tiotropium 18 mcg Cap For Inhalation INH SCH (08:19)
[2017-02-20] MEDS: Digoxin 250 mcg (0.25 mg) Tab PO SCH (08:19)
[2017-02-20] MEDS: Pantoprazole 40 mg EC Tab PO SCH (08:20)
[2017-02-20] MEDS: Bacitracin 500 Units/gm Oint Foilpak UD TOP SCH ×2 (13:07→16:28)
[2017-02-20] MEDS: Lactobacillus Acidophilus 500 MU Cap PO SCH (16:21)
--- NOTE | 2017-02-20 16:34 | CP.PCM.PN ---
Subjective - Date & Time of Evaluation Date of Evaluation: 02/20/17 Time of Evaluation: 07:05 - Subjective Subjective: Patient seen and examined at bedside, in no acute distress, no acute events overnight. Reports he is tolerating PT well. States his urinary stream has decreased over last few days and in the past he has been straight catheterized due to urine retention. Patient does not feel he is retaining urine. Otherwise his SOB has improved, denies chest pain, weakness or dizziness. Objective - Vital Signs/Intake and Output Vital Signs (last 24 hours): Temp Pulse Resp BP Pulse Ox 98.1 F 78 20 108/55 L 97 02/20/17 16:22 02/20/17 16:22 02/20/17 16:22 02/20/17 16:22 02/20/17 16:22 - Medications Medications: Current Medications Bacitracin (Bacitracin) 1 ea TOP TID [facility] Last Admin: 02/20/17 16:28 Dose: 1 ea Dextrose (Dextrose 50% Inj) 0 ml IV STAT PRN; Protocol PRN Reason: Hyglycemia Protocol Dextrose (Glutose 15) 0 gm PO ONCE PRN; Protocol PRN Reason: Hypoglycemia Protocol Digoxin (Lanoxin) 0.25 mg PO DAILY [facility] Last Admin: 02/20/17 08:19 Dose: 0.25 mg Finasteride (Proscar) 5 mg PO DAILY [facility] Last Admin: 02/20/17 08:21 Dose: 5 mg Fluconazole (Diflucan) 200 mg PO DAILY [facility] Last Admin: 02/20/17 08:20 Dose: 200 mg Furosemide (Lasix) 40 mg PO DAILY [facility] Last Admin: 02/20/17 08:20 Dose: 40 mg Gabapentin (Neurontin) 100 mg PO [facility] Last Admin: 02/19/17 21:29 Dose: 100 mg Glucagon (Glucagen Diagnostic Kit) 0 mg IM STAT PRN; Protocol PRN Reason: Hypoglycemia Protocol Guaifenesin/Dextromethorphan (Robitussin Dm) 10 ml PO Q6 PRN PRN Reason: Cough Meropenem 1 gm/ Sodium (Chloride) 100 mls @ 100 mls/hr IVPB Q12H [facility] Last Admin: 02/20/17 16:26 Dose: 100 mls/hr Insulin Detemir (Levemir) 14 units SC [facility] Last Admin: 02/19/17 21:29 Dose: 14 u Insulin Human Lispro (Humalog) 5 units SC ACTID [facility] Last Admin: 02/20/17 16:24 Dose: 5 u Insulin Human Regular (Humulin R) 0 units SC ACHS [facility] PRN Reason: Protocol Last Admin: 02/20/17 16:24 Dose: 4 units Lactobacillus Acidophilus (Bacid Acidophilus) 1 cap PO BID [facility] Last Admin: 02/20/17 16:21 Dose: 1 cap Levalbuterol HCl (Xopenex) 1.25 mg INH RQ8 [facility] Last Admin: 02/20/17 08:07 Dose: 1.25 mg Lisinopril (Zestril) 5 mg PO DAILY [facility] Last Admin: 02/20/17 08:19 Dose: 5 mg Metformin HCl (Glucophage) 500 mg PO BID [facility] Last Admin: 02/20/17 16:21 Dose: 500 mg Metoprolol Tartrate (Lopressor) 12.5 mg PO Q12 [facility] Last Admin: 02/20/17 08:20 Dose: 12.5 mg Montelukast Sodium (Singulair) 10 mg PO DAILY@2100 [facility] Last Admin: 02/19/17 21:29 Dose: 10 mg Neomycin/Polymyxin/Hydrocortisone (Cortisporin Otic Soln) 4 drop TID [facility] Last Admin: 02/20/17 16:28 Dose: Not Given Pantoprazole Sodium (Protonix Ec Tab) 40 mg PO DAILY [facility] Last Admin: 02/20/17 08:20 Dose: 40 mg Prednisone (Prednisone Tab) 50 mg PO DAILY [facility] Last Admin: 02/20/17 08:20 Dose: 50 mg Spironolactone (Aldactone) 25 mg PO DAILY [facility] Last Admin: 02/20/17 08:21 Dose: 25 mg Tiotropium [place] (Spiriva) 18 mcg INH DAILY [facility] Last Admin: 02/20/17 08:19 Dose: 18 mcg - Labs Labs: 02/17/17 07:00 02/18/17 06:30 PT 36.2 Seconds (9.8-13.1) H D 02/20/17 06:05 INR 3.1 (0.9-1.2) H 02/20/17 06:05 - Constitutional Appears: No Acute Distress, Older Than Stated Age - Head Exam Head Exam: ATRAUMATIC, NORMOCEPHALIC - Eye Exam Eye Exam: EOMI, PERRL - ENT Exam ENT Exam: Mucous Membranes Moist - Neck Exam Neck Exam: Full ROM - Respiratory Exam Respiratory Exam: NORMAL BREATHING PATTERN (bronchial breath sounds) - Cardiovascular Exam Cardiovascular Exam: REGULAR RHYTHM, +S1, +S2 - GI/Abdominal Exam GI & Abdominal Exam: Soft, Normal Bowel Sounds - Extremities Exam Extremities Exam: Full ROM. absent: Calf Tenderness, Pedal Edema - Back Exam Back Exam: absent: CVA tenderness (L), CVA tenderness (R) - Neurological Exam Neurological Exam: Alert, Awake, CN II-XII Intact, Oriented x3 - Psychiatric Exam Psychiatric exam: Normal Affect, Normal Mood - Skin Skin Exam: Dry, Intact, Warm Assessment and Plan - Assessment and Plan (Free Text) Assessment: 82 yr old M admitted to TCU for deconditioning and IV antibiotics for Pneumonia. Patient stable, SOB has resolved. Cardiology, Pulmonology and ID on board. Repeat CXR showed residual pneumonia. Warfarin held today as INR is 3.1. UCx showed no growth. Urology consulted. Community Acquired Pneumonia -acute, leukocytosis increased to 12.7 (02/17/17) -repeat CXR: small right lower lobe infiltrate - Day 8 Meropenem 1g Q12H (will complete 10 days) -sputum culture: positive for Psuedomona aerug. -ID on board: Dr. Painting: d/c Vancomycin -f/u CBC COPD Exacerbation -acute, symptoms improving: SOB/increased sputum production -Duoneb 3 ml Inh Q6h PRN for SOB -Prednisone 40mg PO QD (will taper daily) -continue home meds: Singulair 10mg PO QD, adjusted Spiriva to 18 mcg INH QD, -Supplemental O2 via nasal cannula to maintain O2 sat between 88-92% UTI -UA positive for large leukocyte esterase, microscopic WBC, rare bacteria and few yeast -start Fluconazole 200mg PO QD (to complete 14 days) -UCx no growth -Urology consult appreciated: dysuria and decreased urinary stream Congestive Heart Failure -Systolic (Severe) -chronic, ProBNP 5620 -continue home meds: Furosemide 40mg IV QD, Spironolactone 25mg PO QD, Lisinopril 5mg PO QD -Cardiology consult appreciated-Dr. Godfrey: will follow recommendations -Echocardiogram: LVEF 20-25% , severely impaired systolic function, severe MR and severe Pulm HTN(see full report) Atrial Fibrillation -stable, chronic -EKG showed Atrial flutter with 2:1 conduction -Cardiology consult appreciated-Dr. Godfrey: start Digoxin 0.25mg PO QD, start Metoprolol 12.5mg PO Q12H (d/c Amiodarione and Diltiazem) -daily INR , daily adjustment of Warfarin dose -Warfarin held today as INR is 3.1 NIDDM -uncontrolled, chronic, HbA1c 8.4 -continue home med: Metformin 500 mg PO BID -adjusted Insulin Lispro 5 units SCTID, Insulin Detemir 14 units SC HS -Regular Human Insulin SC ACHS low dose protocol -Gabapentin 100mg PO QHS for diabetic peripheral neuropathy -hypoglycemia protocol -lipid panel triglyc 62/ chol 137/ LDL 76/ HDL 35 Anemia of Chronic Disease -stable, chronic, likely secondary to COPD/Heart Failure -Iron 17, TIBC 235, transferrin 170, ferritin 97.5, C-reactive protein elevated , ESR 67 DVT/GI prophylaxis -SCD's for now, as patient is anticoagulated with Warfarin -Protonix 40mg PO QD -Lactobacillus acidophilus
[2017-02-20] MEDS: Insulin Detemir 100 Units/ml Inj SC SCH (21:08)
[2017-02-21] MEDS: Meropenem 1 GM in Sodium Chloride 0.9% 100 ML IVPB SCH ×2 (04:18→16:54)
[2017-02-21] MEDS: Insulin Regular 100 units/ml SC SCH ×4 (06:39→21:39)
[2017-02-21 07:22] LABS: MEAN CORPUSCULAR HEMOGLOBIN 26.6 pg (27.0-31.0); MEAN CORPUSCULAR HGB CONC 30.9 g/dL (33.0-37.0); RED CELL DISTRIBUTION WIDTH 18.2 % (11.5-14.5); WHITE BLOOD COUNT 16.1 K/uL (4.8-10.8)
[2017-02-21] MEDS: Levalbuterol 1.25 MG/3 ML Inhal Soln UD INH SCH ×3 (07:44→23:15)
[2017-02-21] MEDS: Insulin Lispro (humaLOG) 100 Units/ml Inj SC SCH ×3 (07:45→16:55)
[2017-02-21] MEDS: Lactobacillus Acidophilus 500 MU Cap PO SCH ×2 (08:30→17:14)
[2017-02-21] MEDS: Pantoprazole 40 mg EC Tab PO SCH (08:32)
[2017-02-21] MEDS: Bacitracin 500 Units/gm Oint Foilpak UD TOP SCH ×3 (08:33→17:14)
[2017-02-21] MEDS: Digoxin 250 mcg (0.25 mg) Tab PO SCH (08:34)
[2017-02-21] MEDS: Tiotropium 18 mcg Cap For Inhalation INH SCH (08:35)
--- NOTE | 2017-02-21 09:23 | CP.PCM.PN ---
Subjective - Date & Time of Evaluation Date of Evaluation: 02/21/17 Time of Evaluation: 09:20 - Subjective Subjective: Resting comfortably in bed Feels much improved Much improved effort tolerence HR well controlled with Metoprolol+ Digoxin On Lasix+ Spironolactone Lisinopril INR 2.1 today (Warfarin ordered) CMP to check K+ level Objective - Vital Signs/Intake and Output Vital Signs (last 24 hours): Temp Pulse Resp BP Pulse Ox 97.7 F 66 20 113/62 99 02/21/17 08:17 02/21/17 08:32 02/21/17 08:17 02/21/17 08:34 02/21/17 08:17 - Medications Medications: Current Medications Bacitracin (Bacitracin) 1 ea TOP TID [facility] Last Admin: 02/21/17 08:33 Dose: 1 ea Dextrose (Dextrose 50% Inj) 0 ml IV STAT PRN; Protocol PRN Reason: Hyglycemia Protocol Dextrose (Glutose 15) 0 gm PO ONCE PRN; Protocol PRN Reason: Hypoglycemia Protocol Digoxin (Lanoxin) 0.25 mg PO DAILY [facility] Last Admin: 02/21/17 08:34 Dose: 0.25 mg Finasteride (Proscar) 5 mg PO DAILY [facility] Last Admin: 02/21/17 08:35 Dose: 5 mg Fluconazole (Diflucan) 200 mg PO DAILY [facility] Last Admin: 02/21/17 08:34 Dose: 200 mg Furosemide (Lasix) 40 mg PO DAILY [facility] Last Admin: 02/21/17 08:34 Dose: 40 mg Gabapentin (Neurontin) 100 mg PO [facility] Last Admin: 02/20/17 21:07 Dose: 100 mg Glucagon (Glucagen Diagnostic Kit) 0 mg IM STAT PRN; Protocol PRN Reason: Hypoglycemia Protocol Guaifenesin/Dextromethorphan (Robitussin Dm) 10 ml PO Q6 PRN PRN Reason: Cough Meropenem 1 gm/ Sodium (Chloride) 100 mls @ 100 mls/hr IVPB Q12H [facility] Last Admin: 02/21/17 04:18 Dose: 100 mls/hr Insulin Detemir (Levemir) 14 units SC HS [facility] Last Admin: 02/20/17 21:08 Dose: 14 u Insulin Human Lispro (Humalog) 5 units SC ACTID [facility] Last Admin: 02/21/17 07:45 Dose: 5 u Insulin Human Regular (Humulin R) 0 units SC ACHS [facility] PRN Reason: Protocol Last Admin: 02/21/17 06:39 Dose: Not Given Lactobacillus Acidophilus (Bacid Acidophilus) 1 cap PO BID [facility] Last Admin: 02/21/17 08:30 Dose: 1 cap Levalbuterol HCl (Xopenex) 1.25 mg INH RQ8 [facility] Last Admin: 02/21/17 07:44 Dose: 1.25 mg Lisinopril (Zestril) 5 mg PO DAILY [facility] Last Admin: 02/21/17 08:32 Dose: 5 mg Metformin HCl (Glucophage) 500 mg PO BID [facility] Last Admin: 02/21/17 08:40 Dose: 500 mg Metoprolol Tartrate (Lopressor) 12.5 mg PO Q12 [facility] Last Admin: 02/21/17 08:30 Dose: 12.5 mg Montelukast Sodium (Singulair) 10 mg PO DAILY@2100 [facility] Last Admin: 02/20/17 20:19 Dose: 10 mg Neomycin/Polymyxin/Hydrocortisone (Cortisporin Otic Soln) 4 drop TID [facility] Last Admin: 02/21/17 08:33 Dose: 4 drop Pantoprazole Sodium (Protonix Ec Tab) 40 mg PO DAILY [facility] Last Admin: 02/21/17 08:32 Dose: 40 mg Prednisone (Prednisone Tab) 40 mg PO DAILY [facility] Last Admin: 02/21/17 08:32 Dose: 40 mg Spironolactone (Aldactone) 25 mg PO DAILY [facility] Last Admin: 02/21/17 08:32 Dose: 25 mg Tiotropium [place] (Spiriva) 18 mcg INH DAILY [facility] Last Admin: 02/21/17 08:35 Dose: 18 mcg - Labs Labs: 02/21/17 07:00 02/18/17 06:30 PT 23.7 Seconds (9.8-13.1) H D 02/21/17 07:00 INR 2.1 (0.9-1.2) H D 02/21/17 07:00
--- NOTE | 2017-02-21 12:09 | CP.PCM.PN ---
<Zhanna Oneil - Last Filed: 02/21/17 12:07> Subjective - Date & Time of Evaluation Date of Evaluation: 02/21/17 Time of Evaluation: 07:15 - Subjective Subjective: Patient seen and examined at bedside with Dr. Aguirre, in no acute distress, no acute events overnight. Reports he is feeling much better. Denies SOB, dizziness , weakness or chest pain. Tolerating PT well. Discussed with patient urology will be coming to see him. Objective - Vital Signs/Intake and Output Vital Signs (last 24 hours): Temp Pulse Resp BP Pulse Ox 97.7 F 66 20 113/62 99 02/21/17 08:17 02/21/17 08:32 02/21/17 08:17 02/21/17 08:34 02/21/17 08:17 - Medications Medications: Current Medications Bacitracin (Bacitracin) 1 ea TOP TID [facility] Last Admin: 02/21/17 08:33 Dose: 1 ea Dextrose (Dextrose 50% Inj) 0 ml IV STAT PRN; Protocol PRN Reason: Hyglycemia Protocol Dextrose (Glutose 15) 0 gm PO ONCE PRN; Protocol PRN Reason: Hypoglycemia Protocol Digoxin (Lanoxin) 0.25 mg PO DAILY [facility] Last Admin: 02/21/17 08:34 Dose: 0.25 mg Finasteride (Proscar) 5 mg PO DAILY [facility] Last Admin: 02/21/17 08:35 Dose: 5 mg Fluconazole (Diflucan) 200 mg PO DAILY [facility] Last Admin: 02/21/17 08:34 Dose: 200 mg Furosemide (Lasix) 40 mg PO DAILY [facility] Last Admin: 02/21/17 08:34 Dose: 40 mg Gabapentin (Neurontin) 100 mg PO HS [facility] Last Admin: 02/20/17 21:07 Dose: 100 mg Glucagon (Glucagen Diagnostic Kit) 0 mg IM STAT PRN; Protocol PRN Reason: Hypoglycemia Protocol Guaifenesin/Dextromethorphan (Robitussin Dm) 10 ml PO Q6 PRN PRN Reason: Cough Meropenem 1 gm/ Sodium (Chloride) 100 mls @ 100 mls/hr IVPB Q12H [facility] Last Admin: 02/21/17 04:18 Dose: 100 mls/hr Insulin Detemir (Levemir) 14 units SC [facility] Last Admin: 02/20/17 21:08 Dose: 14 u Insulin Human Lispro (Humalog) 5 units SC ACTID [facility] Last Admin: 02/21/17 11:40 Dose: 5 u Insulin Human Regular (Humulin R) 0 units SC ACHS [facility] PRN Reason: Protocol Last Admin: 02/21/17 11:43 Dose: 1 units Lactobacillus Acidophilus (Bacid Acidophilus) 1 cap PO BID [facility] Last Admin: 02/21/17 08:30 Dose: 1 cap Levalbuterol HCl (Xopenex) 1.25 mg INH RQ8 [facility] Last Admin: 02/21/17 07:44 Dose: 1.25 mg Lisinopril (Zestril) 5 mg PO DAILY [facility] Last Admin: 02/21/17 08:32 Dose: 5 mg Metformin HCl (Glucophage) 500 mg PO BID [facility] Last Admin: 02/21/17 08:40 Dose: 500 mg Metoprolol Tartrate (Lopressor) 12.5 mg PO Q12 [facility] Last Admin: 02/21/17 08:30 Dose: 12.5 mg Montelukast Sodium (Singulair) 10 mg PO DAILY@2100 [facility] Last Admin: 02/20/17 20:19 Dose: 10 mg Neomycin/Polymyxin/Hydrocortisone (Cortisporin Otic Soln) 4 drop TID [facility] Last Admin: 02/21/17 08:33 Dose: 4 drop Pantoprazole Sodium (Protonix Ec Tab) 40 mg PO DAILY [facility] Last Admin: 02/21/17 08:32 Dose: 40 mg Prednisone (Prednisone Tab) 40 mg PO DAILY [facility] Last Admin: 02/21/17 08:32 Dose: 40 mg Spironolactone (Aldactone) 25 mg PO DAILY [facility] Last Admin: 02/21/17 08:32 Dose: 25 mg Tiotropium [place] (Spiriva) 18 mcg INH DAILY [facility] Last Admin: 02/21/17 08:35 Dose: 18 mcg Warfarin Sodium (Coumadin) 3 mg PO QD5 [facility] PRN Reason: Protocol Stop: 02/21/17 17:01 - Labs Labs: 02/21/17 07:00 02/18/17 06:30 PT 23.7 Seconds (9.8-13.1) H D 02/21/17 07:00 INR 2.1 (0.9-1.2) H D 02/21/17 07:00 - Constitutional Appears: No Acute Distress, Older Than Stated Age - Head Exam Head Exam: ATRAUMATIC, NORMOCEPHALIC - Eye Exam Eye Exam: EOMI, PERRL - ENT Exam ENT Exam: Mucous Membranes Moist - Neck Exam Neck Exam: Full ROM. absent: Lymphadenopathy - Respiratory Exam Respiratory Exam: NORMAL BREATHING PATTERN (bronchial breath sounds) - Cardiovascular Exam Cardiovascular Exam: REGULAR RHYTHM, +S1, +S2 - GI/Abdominal Exam GI & Abdominal Exam: Soft, Normal Bowel Sounds. absent: Tenderness - Extremities Exam Extremities Exam: Full ROM. absent: Calf Tenderness, Pedal Edema - Back Exam Back Exam: absent: CVA tenderness (L), CVA tenderness (R) - Neurological Exam Neurological Exam: Alert, Awake, CN II-XII Intact, Oriented x3 - Psychiatric Exam Psychiatric exam: Normal Affect, Normal Mood - Skin Skin Exam: Dry, Intact, Warm Assessment and Plan - Assessment and Plan (Free Text) Assessment: 82 yr old M admitted to TCU for deconditioning and IV antibiotics for Pneumonia. Patient stable, SOB has resolved. Cardiology, Pulmonology and ID on board. Repeat CXR showed residual pneumonia. Warfarin ordered today as INR is 2.1. UCx showed no growth. Urology consulted. Community Acquired Pneumonia -acute, leukocytosis 16.1 -repeat CXR: small right lower lobe infiltrate - Day 9 Meropenem 1g Q12H (will complete 10 days) -sputum culture: positive for Psuedomona aerug. -ID on board: Dr. Painting: d/c Vancomycin -f/u CBC COPD Exacerbation -acute, symptoms improving: SOB/increased sputum production -Duoneb 3 ml Inh Q6h PRN for SOB -Prednisone 40mg PO QD (will taper daily) -continue home meds: Singulair 10mg PO QD, adjusted Spiriva to 18 mcg INH QD, -Supplemental O2 via nasal cannula to maintain O2 sat between 88-92% UTI -UA positive for large leukocyte esterase, microscopic WBC, rare bacteria and few yeast -Fluconazole 200mg PO QD (to complete 14 days) -UCx no growth -Urology consult appreciated: dysuria and decreased urinary stream Congestive Heart Failure -Systolic (Severe) -chronic, ProBNP 5620 -continue home meds: Furosemide 40mg IV QD, Spironolactone 25mg PO QD, Lisinopril 5mg PO QD -Cardiology consult appreciated-Dr. Godfrey: will follow recommendations -Echocardiogram: LVEF 20-25% , severely impaired systolic function, severe MR and severe Pulm HTN(see full report) Atrial Fibrillation -stable, chronic -EKG showed Atrial flutter with 2:1 conduction -Cardiology consult appreciated-Dr. Godfrey: start Digoxin 0.25mg PO QD, start Metoprolol 12.5mg PO Q12H (d/c Amiodarione and Diltiazem) -daily INR , daily adjustment of Warfarin dose -Warfarin 3mg ordered today as INR is 2.1 NIDDM -uncontrolled, chronic, HbA1c 8.4 -continue home med: Metformin 500 mg PO BID -adjusted Insulin Lispro 5 units SCTID, Insulin Detemir 14 units SC HS -Regular Human Insulin SC ACHS low dose protocol -Gabapentin 100mg PO QHS for diabetic peripheral neuropathy -hypoglycemia protocol -lipid panel triglyc 62/ chol 137/ LDL 76/ HDL 35 Anemia of Chronic Disease -stable, chronic, likely secondary to COPD/Heart Failure -Iron 17, TIBC 235, transferrin 170, ferritin 97.5, C-reactive protein elevated , ESR 67 DVT/GI prophylaxis -SCD's for now, as patient is anticoagulated with Warfarin -Protonix 40mg PO QD -Lactobacillus acidophilus <Chris Aguirre - Last Filed: 02/24/17 06:48> Objective - Vital Signs/Intake and Output Vital Signs (last 24 hours): Temp Pulse Resp BP Pulse Ox 98.1 F 64 20 107/57 L 96 02/23/17 20:09 02/23/17 21:30 02/23/17 20:09 02/23/17 21:30 02/23/17 20:09 - Medications Medications: Current Medications Bacitracin (Bacitracin) 1 ea TOP TID [facility] Last Admin: 02/23/17 17:23 Dose: 1 ea Dextrose (Dextrose 50% Inj) 0 ml IV STAT PRN; Protocol PRN Reason: Hyglycemia Protocol Dextrose (Glutose 15) 0 gm PO ONCE PRN; Protocol PRN Reason: Hypoglycemia Protocol Digoxin (Lanoxin) 0.25 mg PO DAILY [facility] Last Admin: 02/23/17 09:47 Dose: 0.25 mg Finasteride (Proscar) 5 mg PO DAILY [facility] Last Admin: 02/23/17 09:49 Dose: 5 mg Fluconazole (Diflucan) 200 mg PO DAILY [facility] Last Admin: 02/23/17 09:50 Dose: 200 mg Furosemide (Lasix) 40 mg PO DAILY [facility] Last Admin: 02/23/17 09:46 Dose: 40 mg Gabapentin (Neurontin) 100 mg PO HS [facility] Last Admin: 02/23/17 21:31 Dose: 100 mg Glucagon (Glucagen Diagnostic Kit) 0 mg IM STAT PRN; Protocol PRN Reason: Hypoglycemia Protocol Guaifenesin/Dextromethorphan (Robitussin Dm) 10 ml PO Q6 PRN PRN Reason: Cough Last Admin: 02/23/17 17:28 Dose: 10 ml Insulin Detemir (Levemir) 14 units SC HS [facility] Last Admin: 02/23/17 21:30 Dose: 14 u Insulin Human Lispro (Humalog) 5 units SC ACTID [facility] Last Admin: 02/23/17 17:24 Dose: 5 u Insulin Human Regular (Humulin R) 0 units SC ACHS [facility] PRN Reason: Protocol Last Admin: 02/23/17 21:31 Dose: Not Given Lactobacillus Acidophilus (Bacid Acidophilus) 1 cap PO BID [facility] Last Admin: 02/23/17 17:28 Dose: 1 cap Levalbuterol HCl (Xopenex) 1.25 mg INH RQ8 [facility] Last Admin: 02/23/17 23:40 Dose: 1.25 mg Lisinopril (Zestril) 5 mg PO DAILY [facility] Last Admin: 02/23/17 09:47 Dose: 5 mg Metformin HCl (Glucophage) 500 mg PO BID [facility] Last Admin: 02/23/17 17:23 Dose: 500 mg Metoprolol Tartrate (Lopressor) 12.5 mg PO Q12 [facility] Last Admin: 02/23/17 21:30 Dose: 12.5 mg Montelukast Sodium (Singulair) 10 mg PO DAILY@2100 [facility] Last Admin: 02/23/17 21:31 Dose: 10 mg Neomycin/Polymyxin/Hydrocortisone (Cortisporin Otic Soln) 4 drop TID [facility] Last Admin: 02/23/17 17:22 Dose: 4 drop Pantoprazole Sodium (Protonix Ec Tab) 40 mg PO DAILY [facility] Last Admin: 02/23/17 09:48 Dose: 40 mg Prednisone (Prednisone Tab) 30 mg PO DAILY [facility] Last Admin: 02/23/17 09:48 Dose: 30 mg Spironolactone (Aldactone) 25 mg PO DAILY [facility] Last Admin: 02/23/17 09:46 Dose: 25 mg Tamsulosin HCl (Flomax) 0.4 mg PO DAILY [facility] Last Admin: 02/23/17 09:49 Dose: 0.4 mg Tiotropium [place] (Spiriva) 18 mcg INH DAILY [facility] Last Admin: 02/23/17 09:52 Dose: 18 mcg - Labs Labs: 02/23/17 06:00 02/22/17 07:30 PT 44.0 Seconds (9.8-13.1) H* D 02/23/17 06:00 INR 3.8 (0.9-1.2) H D 02/23/17 06:00 Attending/Attestation - Attestation I have personally seen and examined this patient.: Yes I have fully participated in the care of the patient.: Yes I have reviewed all pertinent clinical information, including history, physical exam and plan: Yes
--- NOTE | 2017-02-21 19:01 | CP.PCM.CON ---
History of Present Illness - History of Present Illness History of Present Illness: UROLOGY Pt 82 male seen for symptomatic BPH. He has a hx of having intermittant urine retention requiring straight cath. the last time in [place] 6 months ago. Currently he has frequency with a slow flow. He is diabetic and alos on daily diuretics. He is al;so on finasteride. Abdomen not grossly distended. I wou;ld recomend a post void bladder scan and to start Flomax at this time Past Patient History - Infectious Disease Hx of Infectious Diseases: None - Past Medical History & Family History Past Medical History?: Yes - Past Social History Smoking Status: Former Smoker - CARDIAC Hx Congestive Heart Failure: Yes - PULMONARY Hx Chronic Obstructive Pulmonary Disease (COPD): Yes - NEUROLOGICAL Hx Neurological Disorder: Yes Hx Vertigo: Yes - HEENT Hx HEENT Problems: No Other/Comment: Dentures - RENAL Hx Chronic Kidney Disease: No - ENDOCRINE/METABOLIC Hx Diabetes Mellitus Type 2: Yes - HEMATOLOGICAL/ONCOLOGICAL Hx Blood Disorders: No Hx AIDS: No Hx Human Immunodeficiency Virus (HIV): No - INTEGUMENTARY Hx Dermatological Problems: No - MUSCULOSKELETAL/RHEUMATOLOGICAL Hx Musculoskeletal Disorders: No Hx Falls: No - GASTROINTESTINAL Hx Gastrointestinal Disorders: No - GENITOURINARY/GYNECOLOGICAL Hx Genitourinary Disorders: Yes Other/Comment: penile cancer - PSYCHIATRIC Hx Psychophysiologic Disorder: No Hx Substance Use: No - SURGICAL HISTORY Hx Surgeries: Yes Other/Comment: Penile surg from [place] - ANESTHESIA Hx Anesthesia: Yes Hx Anesthesia Reactions: No Hx Malignant Hyperthermia: No Has any member of the family had a problem w/ anesthesia?: No Meds Allergies/Adverse Reactions: Allergies Allergy/AdvReac Type Severity Reaction Status Date / Time No Known Allergies Allergy Verified 02/14/17 16:48 - Medications Medications: Current Medications Bacitracin (Bacitracin) 1 ea TOP TID [facility] Last Admin: 02/21/17 17:14 Dose: 1 ea Dextrose (Dextrose 50% Inj) 0 ml IV STAT PRN; Protocol PRN Reason: Hyglycemia Protocol Dextrose (Glutose 15) 0 gm PO ONCE PRN; Protocol PRN Reason: Hypoglycemia Protocol Digoxin (Lanoxin) 0.25 mg PO DAILY [facility] Last Admin: 02/21/17 08:34 Dose: 0.25 mg Finasteride (Proscar) 5 mg PO DAILY [facility] Last Admin: 02/21/17 08:35 Dose: 5 mg Fluconazole (Diflucan) 200 mg PO DAILY [facility] Last Admin: 02/21/17 08:34 Dose: 200 mg Furosemide (Lasix) 40 mg PO DAILY [facility] Last Admin: 02/21/17 08:34 Dose: 40 mg Gabapentin (Neurontin) 100 mg PO HS [facility] Last Admin: 02/20/17 21:07 Dose: 100 mg Glucagon (Glucagen Diagnostic Kit) 0 mg IM STAT PRN; Protocol PRN Reason: Hypoglycemia Protocol Guaifenesin/Dextromethorphan (Robitussin Dm) 10 ml PO Q6 PRN PRN Reason: Cough Meropenem 1 gm/ Sodium (Chloride) 100 mls @ 100 mls/hr IVPB Q12H [facility] Last Admin: 02/21/17 16:54 Dose: 100 mls/hr Insulin Detemir (Levemir) 14 units SC HS [facility] Last Admin: 02/20/17 21:08 Dose: 14 u Insulin Human Lispro (Humalog) 5 units SC ACTID [facility] Last Admin: 02/21/17 16:55 Dose: 5 u Insulin Human Regular (Humulin R) 0 units SC ACHS [facility] PRN Reason: Protocol Last Admin: 02/21/17 16:57 Dose: 2 units Lactobacillus Acidophilus (Bacid Acidophilus) 1 cap PO BID [facility] Last Admin: 02/21/17 17:14 Dose: 1 cap Levalbuterol HCl (Xopenex) 1.25 mg INH RQ8 [facility] Last Admin: 02/21/17 15:46 Dose: 1.25 mg Lisinopril (Zestril) 5 mg PO DAILY [facility] Last Admin: 02/21/17 08:32 Dose: 5 mg Metformin HCl (Glucophage) 500 mg PO BID [facility] Last Admin: 02/21/17 17:15 Dose: 500 mg Metoprolol Tartrate (Lopressor) 12.5 mg PO Q12 [facility] Last Admin: 02/21/17 08:30 Dose: 12.5 mg Montelukast Sodium (Singulair) 10 mg PO DAILY@2100 [facility] Last Admin: 02/20/17 20:19 Dose: 10 mg Neomycin/Polymyxin/Hydrocortisone (Cortisporin Otic Soln) 4 drop TID [facility] Last Admin: 02/21/17 16:55 Dose: 4 drop Pantoprazole Sodium (Protonix Ec Tab) 40 mg PO DAILY [facility] Last Admin: 02/21/17 08:32 Dose: 40 mg Prednisone (Prednisone Tab) 40 mg PO DAILY [facility] Last Admin: 02/21/17 08:32 Dose: 40 mg Spironolactone (Aldactone) 25 mg PO DAILY [facility] Last Admin: 02/21/17 08:32 Dose: 25 mg Tamsulosin HCl (Flomax) 0.4 mg PO DAILY [facility] Tiotropium [place] (Spiriva) 18 mcg INH DAILY [facility] Last Admin: 02/21/17 08:35 Dose: 18 mcg Results - Vital Signs Recent Vital Signs: Last Vital Signs Temp 98.2 F 02/21/17 17:10 Pulse 78 02/21/17 17:10 Resp 20 02/21/17 17:10 BP 107/62 02/21/17 17:10 Pulse Ox 95 02/21/17 17:10 - Labs Result Diagrams: 02/21/17 07:00 02/18/17 06:30 Labs: Laboratory Results - last 24 hr 02/20/17 02/21/17 02/21/17 20:33 05:28 07:00 WBC RBC Hgb Hct MCV MCH MCHC RDW Plt Count PT 23.7 H D INR 2.1 H D POC Glucose (mg/dL) 106 130 H 02/21/17 02/21/17 02/21/17 07:00 11:03 16:39 WBC 16.1 H RBC 3.84 L Hgb 10.2 L Hct 33.0 L MCV 86.0 MCH 26.6 L MCHC 30.9 L RDW 18.2 H Plt Count 265 PT INR POC Glucose (mg/dL) 170 H 213 H
[2017-02-21] MEDS: Insulin Detemir 100 Units/ml Inj SC SCH (21:40)
[2017-02-22] MEDS: Meropenem 1 GM in Sodium Chloride 0.9% 100 ML IVPB SCH ×4 (04:24→18:07)
[2017-02-22] MEDS: Insulin Regular 100 units/ml SC SCH ×4 (06:53→22:08)
[2017-02-22] MEDS: Insulin Lispro (humaLOG) 100 Units/ml Inj SC SCH ×3 (06:57→17:20)
[2017-02-22] MEDS: Levalbuterol 1.25 MG/3 ML Inhal Soln UD INH SCH ×2 (07:33→15:59)
[2017-02-22 09:04] LABS: ALB/GLOB RATIO 1.3 (1.0-2.1); ALKALINE PHOSPHATASE 84 U/L (38-126); ALT/SGPT 41 U/L (21-72); AST/SGOT 17 U/L (17-59); BILIRUBIN,TOTAL 0.4 mg/dl (0.2-1.3); BLOOD UREA NITROGEN 34 mg/dl (9-20); CALCIUM 8.4 mg/dL (8.4-10.2); CARBON DIOXIDE 30 mmol/L (22-30); CHLORIDE 105 mmol/L (98-107); GFR AFRICAN-AMERICAN > 60; GLUCOSE,RANDOM 89 mg/dL (75-110); POTASSIUM 3.6 MMOL/L (3.6-5.0); SODIUM 141 mmol/l (132-148); TOTAL PROTEIN 5.2 G/DL (6.3-8.2)
[2017-02-22] MEDS: Digoxin 250 mcg (0.25 mg) Tab PO SCH (09:18)
[2017-02-22] MEDS: Pantoprazole 40 mg EC Tab PO SCH (09:20)
[2017-02-22] MEDS: Lactobacillus Acidophilus 500 MU Cap PO SCH ×2 (09:23→17:09)
[2017-02-22] MEDS: Bacitracin 500 Units/gm Oint Foilpak UD TOP SCH ×3 (09:23→17:16)
[2017-02-22] MEDS: Tiotropium 18 mcg Cap For Inhalation INH SCH (09:50)
--- NOTE | 2017-02-22 10:55 | CP.PCM.PN ---
Subjective - Date & Time of Evaluation Date of Evaluation: 02/22/17 Time of Evaluation: 10:00 - Subjective Subjective: Vital signs stable Improving effort tolerence INR 2.1 )Warfarin ordered) CMP shows stable renal status and normal K+ (ehile on Lasix and Aldactone) Objective - Vital Signs/Intake and Output Vital Signs (last 24 hours): Temp Pulse Resp BP Pulse Ox 97.0 F L 69 20 125/78 98 02/22/17 08:13 02/22/17 09:19 02/22/17 08:13 02/22/17 09:19 02/22/17 08:13 - Medications Medications: Current Medications Bacitracin (Bacitracin) 1 ea TOP TID [facility] Last Admin: 02/22/17 09:23 Dose: 1 ea Dextrose (Dextrose 50% Inj) 0 ml IV STAT PRN; Protocol PRN Reason: Hyglycemia Protocol Dextrose (Glutose 15) 0 gm PO ONCE PRN; Protocol PRN Reason: Hypoglycemia Protocol Digoxin (Lanoxin) 0.25 mg PO DAILY [facility] Last Admin: 02/22/17 09:18 Dose: 0.25 mg Finasteride (Proscar) 5 mg PO DAILY [facility] Last Admin: 02/22/17 09:19 Dose: 5 mg Fluconazole (Diflucan) 200 mg PO DAILY [facility] Last Admin: 02/22/17 09:20 Dose: 200 mg Furosemide (Lasix) 40 mg PO DAILY [facility] Last Admin: 02/22/17 09:18 Dose: 40 mg Gabapentin (Neurontin) 100 mg PO HS [facility] Last Admin: 02/21/17 21:42 Dose: 100 mg Glucagon (Glucagen Diagnostic Kit) 0 mg IM STAT PRN; Protocol PRN Reason: Hypoglycemia Protocol Guaifenesin/Dextromethorphan (Robitussin Dm) 10 ml PO Q6 PRN PRN Reason: Cough Meropenem 1 gm/ Sodium (Chloride) 100 mls @ 100 mls/hr IVPB Q12H [facility] Last Admin: 02/22/17 04:24 Dose: 100 mls/hr Insulin Detemir (Levemir) 14 units SC HS [facility] Last Admin: 02/21/17 21:40 Dose: 14 u Insulin Human Lispro (Humalog) 5 units SC ACTID [facility] Last Admin: 02/22/17 06:57 Dose: 5 u Insulin Human Regular (Humulin R) 0 units SC ACHS [facility] PRN Reason: Protocol Last Admin: 02/22/17 06:53 Dose: Not Given Lactobacillus Acidophilus (Bacid Acidophilus) 1 cap PO BID [facility] Last Admin: 02/22/17 09:23 Dose: 1 cap Levalbuterol HCl (Xopenex) 1.25 mg INH RQ8 [facility] Last Admin: 02/22/17 07:33 Dose: 1.25 mg Lisinopril (Zestril) 5 mg PO DAILY [facility] Last Admin: 02/22/17 09:19 Dose: 5 mg Metformin HCl (Glucophage) 500 mg PO BID [facility] Last Admin: 02/22/17 09:21 Dose: 500 mg Metoprolol Tartrate (Lopressor) 12.5 mg PO Q12 [facility] Last Admin: 02/22/17 09:17 Dose: 12.5 mg Montelukast Sodium (Singulair) 10 mg PO DAILY@2100 [facility] Last Admin: 02/21/17 21:43 Dose: 10 mg Neomycin/Polymyxin/Hydrocortisone (Cortisporin Otic Soln) 4 drop TID [facility] Last Admin: 02/22/17 09:25 Dose: 4 drop Pantoprazole Sodium (Protonix Ec Tab) 40 mg PO DAILY [facility] Last Admin: 02/22/17 09:20 Dose: 40 mg Prednisone (Prednisone Tab) 40 mg PO DAILY [facility] Last Admin: 02/22/17 09:22 Dose: 40 mg Spironolactone (Aldactone) 25 mg PO DAILY [facility] Last Admin: 02/22/17 09:21 Dose: 25 mg Tamsulosin HCl (Flomax) 0.4 mg PO DAILY [facility] Last Admin: 02/22/17 09:20 Dose: 0.4 mg Tiotropium [place] (Spiriva) 18 mcg INH DAILY [facility] Last Admin: 02/21/17 08:35 Dose: 18 mcg Warfarin Sodium (Coumadin) 2 mg PO QD5 [facility] PRN Reason: Protocol Stop: 02/22/17 17:01 - Labs Labs: 02/21/17 07:00 02/22/17 07:30 PT 23.8 Seconds (9.8-13.1) H 02/22/17 07:30 INR 2.1 (0.9-1.2) H 02/22/17 07:30
[2017-02-22 21:09] VITALS: RESP 20
[2017-02-22] MEDS: Insulin Detemir 100 Units/ml Inj SC SCH (22:01)
--- NOTE | 2017-02-22 22:45 | CP.PCM.PN ---
Subjective - Date & Time of Evaluation Date of Evaluation: 02/22/17 Time of Evaluation: 08:25 - Subjective Subjective: Patient seen and examined at bedside, in no acute distress. Reports today his urinary stream has improved, dysuria has resolved. Tolerating PT well, has no concerns or complaints at this time. Objective - Vital Signs/Intake and Output Vital Signs (last 24 hours): Temp Pulse Resp BP Pulse Ox 97.3 F L 72 20 125/60 94 L 02/22/17 21:08 02/22/17 21:59 02/22/17 21:08 02/22/17 21:59 02/22/17 21:08 - Medications Medications: Current Medications Bacitracin (Bacitracin) 1 ea TOP TID [facility] Last Admin: 02/22/17 17:16 Dose: 1 ea Dextrose (Dextrose 50% Inj) 0 ml IV STAT PRN; Protocol PRN Reason: Hyglycemia Protocol Dextrose (Glutose 15) 0 gm PO ONCE PRN; Protocol PRN Reason: Hypoglycemia Protocol Digoxin (Lanoxin) 0.25 mg PO DAILY [facility] Last Admin: 02/22/17 09:18 Dose: 0.25 mg Finasteride (Proscar) 5 mg PO DAILY [facility] Last Admin: 02/22/17 09:19 Dose: 5 mg Fluconazole (Diflucan) 200 mg PO DAILY [facility] Last Admin: 02/22/17 09:20 Dose: 200 mg Furosemide (Lasix) 40 mg PO DAILY [facility] Last Admin: 02/22/17 09:18 Dose: 40 mg Gabapentin (Neurontin) 100 mg PO [facility] Last Admin: 02/22/17 22:01 Dose: 100 mg Glucagon (Glucagen Diagnostic Kit) 0 mg IM STAT PRN; Protocol PRN Reason: Hypoglycemia Protocol Guaifenesin/Dextromethorphan (Robitussin Dm) 10 ml PO Q6 PRN PRN Reason: Cough Meropenem 1 gm/ Sodium (Chloride) 100 mls @ 100 mls/hr IVPB Q12H [facility] Last Admin: 02/22/17 18:07 Dose: 100 mls/hr Insulin Detemir (Levemir) 14 units SC HS [facility] Last Admin: 02/22/17 22:01 Dose: 14 u Insulin Human Lispro (Humalog) 5 units SC ACTID [facility] Last Admin: 02/22/17 17:20 Dose: 5 u Insulin Human Regular (Humulin R) 0 units SC [facility] PRN Reason: Protocol Last Admin: 02/22/17 22:08 Dose: Not Given Lactobacillus Acidophilus (Bacid Acidophilus) 1 cap PO BID [facility] Last Admin: 02/22/17 17:09 Dose: 1 cap Levalbuterol HCl (Xopenex) 1.25 mg INH RQ8 [facility] Last Admin: 02/22/17 15:59 Dose: 1.25 mg Lisinopril (Zestril) 5 mg PO DAILY [facility] Last Admin: 02/22/17 09:19 Dose: 5 mg Metformin HCl (Glucophage) 500 mg PO BID [facility] Last Admin: 02/22/17 17:17 Dose: 500 mg Metoprolol Tartrate (Lopressor) 12.5 mg PO Q12 [facility] Last Admin: 02/22/17 21:59 Dose: 12.5 mg Montelukast Sodium (Singulair) 10 mg PO DAILY@2100 [facility] Last Admin: 02/22/17 22:00 Dose: 10 mg Neomycin/Polymyxin/Hydrocortisone (Cortisporin Otic Soln) 4 drop TID [facility] Last Admin: 02/22/17 18:10 Dose: 4 drop Pantoprazole Sodium (Protonix Ec Tab) 40 mg PO DAILY [facility] Last Admin: 02/22/17 09:20 Dose: 40 mg Prednisone (Prednisone Tab) 30 mg PO DAILY [facility] Spironolactone (Aldactone) 25 mg PO DAILY [facility] Last Admin: 02/22/17 09:21 Dose: 25 mg Tamsulosin HCl (Flomax) 0.4 mg PO DAILY [facility] Last Admin: 02/22/17 09:20 Dose: 0.4 mg Tiotropium [place] (Spiriva) 18 mcg INH DAILY [facility] Last Admin: 02/22/17 09:50 Dose: 18 mcg - Labs Labs: 02/21/17 07:00 02/22/17 07:30 PT 23.8 Seconds (9.8-13.1) H 02/22/17 07:30 INR 2.1 (0.9-1.2) H 02/22/17 07:30 - Constitutional Appears: Older Than Stated Age - Head Exam Head Exam: ATRAUMATIC, NORMOCEPHALIC - Eye Exam Eye Exam: EOMI, PERRL - ENT Exam ENT Exam: Mucous Membranes Moist - Neck Exam Neck Exam: Full ROM. absent: Lymphadenopathy - Respiratory Exam Respiratory Exam: NORMAL BREATHING PATTERN (bronchial breath sounds) - Cardiovascular Exam Cardiovascular Exam: REGULAR RHYTHM, +S1, +S2 - GI/Abdominal Exam GI & Abdominal Exam: Soft. absent: Tenderness - Extremities Exam Extremities Exam: Full ROM. absent: Calf Tenderness, Pedal Edema - Back Exam Back Exam: absent: CVA tenderness (L), CVA tenderness (R) - Neurological Exam Neurological Exam: Alert, Awake, CN II-XII Intact, Oriented x3 - Psychiatric Exam Psychiatric exam: Normal Affect, Normal Mood - Skin Skin Exam: Dry, Intact, Warm Assessment and Plan - Assessment and Plan (Free Text) Assessment: 82 yr old M admitted to TCU for deconditioning and IV antibiotics for Pneumonia. Patient stable, SOB has resolved. Cardiology, Pulmonology and ID on board. Repeat CXR showed residual pneumonia. Warfarin ordered today as INR is 2.1. UCx showed no growth. Urology consulted. Community Acquired Pneumonia -acute, leukocytosis persists 16.1 -repeat CXR: small right lower lobe infiltrate - Day 10 Meropenem 1g Q12H , will d/c after today and consult with ID -sputum culture: positive for Psuedomona aerug., repeat culture 02/20: + GNR's -ID on board: Dr. Painting: d/c Vancomycin -f/u CBC COPD Exacerbation -acute, symptoms improving: SOB/increased sputum production -Duoneb 3 ml Inh Q6h PRN for SOB -Prednisone 40mg PO QD (will taper daily) -continue home meds: Singulair 10mg PO QD, adjusted Spiriva to 18 mcg INH QD, -Supplemental O2 via nasal cannula to maintain O2 sat between 88-92% Congestive Heart Failure -Systolic (Severe) -chronic, ProBNP 5620 -continue home meds: Furosemide 40mg IV QD, Spironolactone 25mg PO QD, Lisinopril 5mg PO QD -Cardiology consult appreciated-Dr. Godfrey: will follow recommendations -Echocardiogram: LVEF 20-25% , severely impaired systolic function, severe MR and severe Pulm HTN(see full report) Atrial Fibrillation -stable, chronic -EKG showed Atrial flutter with 2:1 conduction -Cardiology consult appreciated-Dr. Godfrey: start Digoxin 0.25mg PO QD, start Metoprolol 12.5mg PO Q12H (d/c Amiodarione and Diltiazem) -daily INR , daily adjustment of Warfarin dose -Warfarin 3mg ordered today as INR is 2.1 NIDDM -uncontrolled, chronic, HbA1c 8.4 -continue home med: Metformin 500 mg PO BID -adjusted Insulin Lispro 5 units SCTID, Insulin Detemir 14 units SC HS -Regular Human Insulin SC ACHS low dose protocol -Gabapentin 100mg PO QHS for diabetic peripheral neuropathy -hypoglycemia protocol -lipid panel triglyc 62/ chol 137/ LDL 76/ HDL 35 BPH -UA positive for large leukocyte esterase, microscopic WBC, rare bacteria and few yeast -Fluconazole 200mg PO QD (to complete 14 days) -UCx no growth -Urology consult appreciated Dr. Knowles: start Flomax, postvoid bladder scan was 360cc= wnl Anemia of Chronic Disease -stable, chronic, likely secondary to COPD/Heart Failure -Iron 17, TIBC 235, transferrin 170, ferritin 97.5, C-reactive protein elevated , ESR 67 DVT/GI prophylaxis -SCD's for now, as patient is anticoagulated with Warfarin -Protonix 40mg PO QD -Lactobacillus acidophilus
[2017-02-23] MEDS: Levalbuterol 1.25 MG/3 ML Inhal Soln UD INH SCH ×4 (00:20→23:40)
[2017-02-23] MEDS: Insulin Regular 100 units/ml SC SCH ×4 (06:34→21:31)
[2017-02-23 07:27] LABS: HEMATOCRIT 34.7 % (35.0-51.0); MEAN CELL VOLUME 86.1 fl (80.0-94.0); MEAN CORPUSCULAR HEMOGLOBIN 27.3 pg (27.0-31.0); MEAN CORPUSCULAR HGB CONC 31.7 g/dL (33.0-37.0); RED CELL DISTRIBUTION WIDTH 18.1 % (11.5-14.5); WHITE BLOOD COUNT 15.7 K/uL (4.8-10.8)
[2017-02-23] MEDS: Insulin Lispro (humaLOG) 100 Units/ml Inj SC SCH ×3 (08:00→17:24)
[2017-02-23] MEDS: Bacitracin 500 Units/gm Oint Foilpak UD TOP SCH ×3 (09:46→17:23)
[2017-02-23] MEDS: Digoxin 250 mcg (0.25 mg) Tab PO SCH (09:47)
[2017-02-23] MEDS: Pantoprazole 40 mg EC Tab PO SCH (09:48)
[2017-02-23 09:50] VITALS: PULSE 60
[2017-02-23] MEDS: guaiFENesin DM 200 mg-20 mg/10 ml UD PO PRN ×2 (09:51→17:28)
[2017-02-23] MEDS: Lactobacillus Acidophilus 500 MU Cap PO SCH ×2 (09:52→17:28)
[2017-02-23] MEDS: Tiotropium 18 mcg Cap For Inhalation INH SCH (09:52)
--- NOTE | 2017-02-23 11:46 | CP.PCM.PN ---
Subjective - Date & Time of Evaluation Date of Evaluation: 02/23/17 Time of Evaluation: 09:35 - Subjective Subjective: Pt seen and examined at bedside, does not have any complaints. urination has improved, denies dysuria, chest pain or sob. doing well. nurses notes reviewed Objective - Vital Signs/Intake and Output Vital Signs (last 24 hours): Temp Pulse Resp BP Pulse Ox 97.5 F L 60 20 124/56 L 95 02/23/17 08:31 02/23/17 09:47 02/23/17 08:31 02/23/17 09:47 02/23/17 08:31 - Medications Medications: Current Medications Bacitracin (Bacitracin) 1 ea TOP TID [facility] Last Admin: 02/23/17 09:46 Dose: 1 ea Dextrose (Dextrose 50% Inj) 0 ml IV STAT PRN; Protocol PRN Reason: Hyglycemia Protocol Dextrose (Glutose 15) 0 gm PO ONCE PRN; Protocol PRN Reason: Hypoglycemia Protocol Digoxin (Lanoxin) 0.25 mg PO DAILY [facility] Last Admin: 02/23/17 09:47 Dose: 0.25 mg Finasteride (Proscar) 5 mg PO DAILY [facility] Last Admin: 02/23/17 09:49 Dose: 5 mg Fluconazole (Diflucan) 200 mg PO DAILY [facility] Last Admin: 02/23/17 09:50 Dose: 200 mg Furosemide (Lasix) 40 mg PO DAILY [facility] Last Admin: 02/23/17 09:46 Dose: 40 mg Gabapentin (Neurontin) 100 mg PO HS [facility] Last Admin: 02/22/17 22:01 Dose: 100 mg Glucagon (Glucagen Diagnostic Kit) 0 mg IM STAT PRN; Protocol PRN Reason: Hypoglycemia Protocol Guaifenesin/Dextromethorphan (Robitussin Dm) 10 ml PO Q6 PRN PRN Reason: Cough Last Admin: 02/23/17 09:51 Dose: 10 ml Insulin Detemir (Levemir) 14 units SC HS [facility] Last Admin: 02/22/17 22:01 Dose: 14 u Insulin Human Lispro (Humalog) 5 units SC ACTID [facility] Last Admin: 02/23/17 08:00 Dose: Not Given Insulin Human Regular (Humulin R) 0 units SC [facility] PRN Reason: Protocol Last Admin: 02/23/17 06:34 Dose: Not Given Lactobacillus Acidophilus (Bacid Acidophilus) 1 cap PO BID [facility] Last Admin: 02/23/17 09:52 Dose: 1 cap Levalbuterol HCl (Xopenex) 1.25 mg INH RQ8 [facility] Last Admin: 02/23/17 07:23 Dose: 1.25 mg Lisinopril (Zestril) 5 mg PO DAILY [facility] Last Admin: 02/23/17 09:47 Dose: 5 mg Metformin HCl (Glucophage) 500 mg PO BID [facility] Last Admin: 02/23/17 09:46 Dose: 500 mg Metoprolol Tartrate (Lopressor) 12.5 mg PO Q12 [facility] Last Admin: 02/23/17 09:45 Dose: 12.5 mg Montelukast Sodium (Singulair) 10 mg PO DAILY@2100 [facility] Last Admin: 02/22/17 22:00 Dose: 10 mg Neomycin/Polymyxin/Hydrocortisone (Cortisporin Otic Soln) 4 drop TID [facility] Last Admin: 02/23/17 09:44 Dose: 4 drop Pantoprazole Sodium (Protonix Ec Tab) 40 mg PO DAILY [facility] Last Admin: 02/23/17 09:48 Dose: 40 mg Prednisone (Prednisone Tab) 30 mg PO DAILY [facility] Last Admin: 02/23/17 09:48 Dose: 30 mg Spironolactone (Aldactone) 25 mg PO DAILY [facility] Last Admin: 02/23/17 09:46 Dose: 25 mg Tamsulosin HCl (Flomax) 0.4 mg PO DAILY [facility] Last Admin: 02/23/17 09:49 Dose: 0.4 mg Tiotropium [place] (Spiriva) 18 mcg INH DAILY [facility] Last Admin: 02/23/17 09:52 Dose: 18 mcg - Labs Labs: 02/23/17 06:00 02/22/17 07:30 PT 44.0 Seconds (9.8-13.1) H* D 02/23/17 06:00 INR 3.8 (0.9-1.2) H D 02/23/17 06:00 - Constitutional Appears: Non-toxic, No Acute Distress - Head Exam Head Exam: NORMOCEPHALIC - ENT Exam ENT Exam: Mucous Membranes Moist - Respiratory Exam Respiratory Exam: NORMAL BREATHING PATTERN. absent: Wheezes - Cardiovascular Exam Cardiovascular Exam: REGULAR RHYTHM, +S1, +S2 - GI/Abdominal Exam GI & Abdominal Exam: Soft, Normal Bowel Sounds. absent: Tenderness - Neurological Exam Neurological Exam: Alert, Awake, Oriented x3 Assessment and Plan - Assessment and Plan (Free Text) Assessment: 82 yr old M admitted to TCU for deconditioning and IV antibiotics for Pneumonia. Patient stable, SOB has resolved. Cardiology, Pulmonology and ID on board. Repeat CXR showed residual pneumonia. Warfarin ordered today as INR is 2.1. UCx showed no growth. Urology consulted. Community Acquired Pneumonia -acute, leukocytosis persists -repeat CXR: small right lower lobe infiltrate -sputum culture: positive for Psuedomona aerug., repeat culture 02/20: + for Stenotrophomonas Maltophilia await sensitivity -pt last dose of antibiotic yesterday, and remain afebrile -f/u CBC COPD Exacerbation -acute, symptoms improving: SOB/increased sputum production -Duoneb 3 ml Inh Q6h PRN for SOB -Prednisone 40mg PO QD (will taper daily) -continue home meds: Singulair 10mg PO QD, adjusted Spiriva to 18 mcg INH QD, -Supplemental O2 via nasal cannula to maintain O2 sat between 88-92% Congestive Heart Failure -Systolic (Severe) -chronic, ProBNP 5620 -continue home meds: Furosemide 40mg IV QD, Spironolactone 25mg PO QD, Lisinopril 5mg PO QD -Cardiology consult appreciated-Dr. Godfrey: will follow recommendations -Echocardiogram: LVEF 20-25% , severely impaired systolic function, severe MR and severe Pulm HTN(see full report) Atrial Fibrillation -stable, chronic -EKG showed Atrial flutter with 2:1 conduction -Cardiology consult appreciated-Dr. Godfrey: start Digoxin 0.25mg PO QD, start Metoprolol 12.5mg PO Q12H (d/c Amiodarione and Diltiazem) -daily INR , daily adjustment of Warfarin dose -Warfarin 3mg ordered today as INR is 2.1 NIDDM -uncontrolled, chronic, HbA1c 8.4 -continue home med: Metformin 500 mg PO BID -adjusted Insulin Lispro 5 units SCTID, Insulin Detemir 14 units SC HS -Regular Human Insulin [place] ACHS low dose protocol -Gabapentin 100mg PO QHS for diabetic peripheral neuropathy -hypoglycemia protocol -lipid panel triglyc 62/ chol 137/ LDL 76/ HDL 35 BPH -UA positive for large leukocyte esterase, microscopic WBC, rare bacteria and few yeast -Fluconazole 200mg PO QD (to complete 14 days) -UCx no growth -Urology consult appreciated Dr. Knowles: start Flomax, postvoid bladder scan was 360cc= wnl Anemia of Chronic Disease -stable, chronic, likely secondary to COPD/Heart Failure -Iron 17, TIBC 235, transferrin 170, ferritin 97.5, C-reactive protein elevated , ESR 67 DVT/GI prophylaxis -SCD's for now, as patient is anticoagulated with Warfarin -Protonix 40mg PO QD -Lactobacillus acidophilus Discharge Planning: per nurse, pt maximum stay is 10days, which is tomorrow. Discharge plan for tomorrow
[2017-02-23] MEDS: Insulin Detemir 100 Units/ml Inj SC SCH (21:30)
[2017-02-24] MEDS: Insulin Regular 100 units/ml SC SCH ×3 (06:54→16:13)
[2017-02-24] MEDS: Levalbuterol 1.25 MG/3 ML Inhal Soln UD INH SCH ×2 (07:28→15:20)
--- NOTE | 2017-02-24 07:43 | CP.PCM.PN ---
Subjective - Date & Time of Evaluation Time of Evaluation: 07:15 Objective - Vital Signs/Intake and Output Vital Signs (last 24 hours): Temp Pulse Resp BP Pulse Ox 98.1 F 64 20 107/57 L 96 02/23/17 20:09 02/23/17 21:30 02/23/17 20:09 02/23/17 21:30 02/23/17 20:09 - Medications Medications: Current Medications Bacitracin (Bacitracin) 1 ea TOP TID [facility] Last Admin: 02/23/17 17:23 Dose: 1 ea Dextrose (Dextrose 50% Inj) 0 ml IV STAT PRN; Protocol PRN Reason: Hyglycemia Protocol Dextrose (Glutose 15) 0 gm PO ONCE PRN; Protocol PRN Reason: Hypoglycemia Protocol Digoxin (Lanoxin) 0.25 mg PO DAILY [facility] Last Admin: 02/23/17 09:47 Dose: 0.25 mg Finasteride (Proscar) 5 mg PO DAILY [facility] Last Admin: 02/23/17 09:49 Dose: 5 mg Fluconazole (Diflucan) 200 mg PO DAILY [facility] Last Admin: 02/23/17 09:50 Dose: 200 mg Furosemide (Lasix) 40 mg PO DAILY [facility] Last Admin: 02/23/17 09:46 Dose: 40 mg Gabapentin (Neurontin) 100 mg PO HS [facility] Last Admin: 02/23/17 21:31 Dose: 100 mg Glucagon (Glucagen Diagnostic Kit) 0 mg IM STAT PRN; Protocol PRN Reason: Hypoglycemia Protocol Guaifenesin/Dextromethorphan (Robitussin Dm) 10 ml PO Q6 PRN PRN Reason: Cough Last Admin: 02/23/17 17:28 Dose: 10 ml Insulin Detemir (Levemir) 14 units SC HS [facility] Last Admin: 02/23/17 21:30 Dose: 14 u Insulin Human Lispro (Humalog) 5 units SC ACTID [facility] Last Admin: 02/23/17 17:24 Dose: 5 u Insulin Human Regular (Humulin R) 0 units SC ACHS [facility] PRN Reason: Protocol Last Admin: 02/24/17 06:54 Dose: Not Given Lactobacillus Acidophilus (Bacid Acidophilus) 1 cap PO BID [facility] Last Admin: 02/23/17 17:28 Dose: 1 cap Levalbuterol HCl (Xopenex) 1.25 mg INH RQ8 [facility] Last Admin: 02/24/17 07:28 Dose: 1.25 mg Lisinopril (Zestril) 5 mg PO DAILY [facility] Last Admin: 02/23/17 09:47 Dose: 5 mg Metformin HCl (Glucophage) 500 mg PO BID [facility] Last Admin: 02/23/17 17:23 Dose: 500 mg Metoprolol Tartrate (Lopressor) 12.5 mg PO Q12 [facility] Last Admin: 02/23/17 21:30 Dose: 12.5 mg Montelukast Sodium (Singulair) 10 mg PO DAILY@2100 [facility] Last Admin: 02/23/17 21:31 Dose: 10 mg Neomycin/Polymyxin/Hydrocortisone (Cortisporin Otic Soln) 4 drop TID [facility] Last Admin: 02/23/17 17:22 Dose: 4 drop Pantoprazole Sodium (Protonix Ec Tab) 40 mg PO DAILY [facility] Last Admin: 02/23/17 09:48 Dose: 40 mg Prednisone (Prednisone Tab) 30 mg PO DAILY [facility] Last Admin: 02/23/17 09:48 Dose: 30 mg Spironolactone (Aldactone) 25 mg PO DAILY [facility] Last Admin: 02/23/17 09:46 Dose: 25 mg Tamsulosin HCl (Flomax) 0.4 mg PO DAILY [facility] Last Admin: 02/23/17 09:49 Dose: 0.4 mg Tiotropium [place] (Spiriva) 18 mcg INH DAILY [facility] Last Admin: 02/23/17 09:52 Dose: 18 mcg - Labs Labs: 02/23/17 06:00 02/22/17 07:30 PT 54.0 Seconds (9.8-13.1) H* D 02/24/17 06:00 INR 4.6 (0.9-1.2) H 02/24/17 06:00
[2017-02-24] MEDS: Lactobacillus Acidophilus 500 MU Cap PO SCH (08:23)
[2017-02-24] MEDS: Tiotropium 18 mcg Cap For Inhalation INH SCH (08:23)
[2017-02-24] MEDS: Bacitracin 500 Units/gm Oint Foilpak UD TOP SCH ×2 (08:23→12:45)
[2017-02-24] MEDS: Digoxin 250 mcg (0.25 mg) Tab PO SCH (08:25)
[2017-02-24] MEDS: Insulin Lispro (humaLOG) 100 Units/ml Inj SC SCH ×2 (08:25→12:12)
[2017-02-24] MEDS: Pantoprazole 40 mg EC Tab PO SCH (08:27)
[2017-02-24 08:28] VITALS: BP 99/57; PULSE 60; TEMP 96.3; O2SAT 99
[2017-02-24 09:32] LABS: PARTIAL THROMBOPLASTIN TIME 41.5 Seconds (25.6-37.1)
--- NOTE | 2017-02-24 09:55 | CP.PCM.DIS ---
<Zhanna Oneil - Last Filed: 02/24/17 13:22> Provider - Provider Date of Admission: 02/14/17 16:49 Attending physician: Chris Aguirre MD Primary care physician: Chris Aguirre MD Consults: Dr. Godfrey- cardiology; Dr. Webster-pulmonology; Dr. Knowles- urology Time Spent in preparation of Discharge (in minutes): 30 Diagnosis - Discharge Diagnosis (1) Community acquired bacterial pneumonia Status: Resolved Priority: Low (2) COPD exacerbation Status: Resolved Priority: Medium (3) CHF (congestive heart failure), NYHA class IV Status: Chronic Priority: High (4) Chronic a-fib Status: Chronic Priority: Medium (5) Uncontrolled diabetes mellitus Status: Chronic Priority: Medium (6) Anemia of chronic disease Status: Chronic Priority: Low Hospital Course - Lab Results Lab Results: Micro Results 02/20/17 12:13 Sputum Gram Stain - Final 02/20/17 12:13 Sputum Sputum Culture - Final Stenotrophomonas Maltophilia 02/16/17 07:22 Urine,Clean Catch Urine Culture - Final No Growth (<1,000 CFU/ML) Most Recent Lab Values WBC 15.7 K/uL (4.8-10.8) H 02/23/17 06:00 RBC 4.03 Mil/uL (4.40-5.90) L 02/23/17 06:00 Hgb 11.0 g/dL (12.0-18.0) L 02/23/17 06:00 Hct 34.7 % (35.0-51.0) L 02/23/17 06:00 MCV 86.1 fl (80.0-94.0) 02/23/17 06:00 MCH 27.3 pg (27.0-31.0) 02/23/17 06:00 MCHC 31.7 g/dL (33.0-37.0) L 02/23/17 06:00 RDW 18.1 % (11.5-14.5) H 02/23/17 06:00 Plt Count 267 K/uL (130-400) 02/23/17 06:00 MPV 7.9 fl (7.2-11.7) 02/17/17 07:00 Neut % (Auto) 94.4 % (50.0-75.0) H 02/17/17 07:00 Lymph % (Auto) 2.1 % (20.0-40.0) L 02/17/17 07:00 Caroline % (Auto) 3.4 % (0.0-10.0) 02/17/17 07:00 Eos % (Auto) 0.0 % (0.0-4.0) 02/17/17 07:00 Baso % (Auto) 0.1 % (0.0-2.0) 02/17/17 07:00 Neut # 12.0 K/uL (1.8-7.0) H 02/17/17 07:00 Lymph # 0.3 K/uL (1.0-4.3) L 02/17/17 07:00 Caroline # 0.4 K/uL (0.0-0.8) 02/17/17 07:00 Eos # 0.0 K/uL (0.0-0.7) 02/17/17 07:00 Baso # 0.0 K/uL (0.0-0.2) 02/17/17 07:00 Neutrophils % (Manual) 95 % (42-75) H 02/17/17 07:00 Lymphocytes % (Manual) 1 % (20-50) L 02/17/17 07:00 Reactive Lymphs % 1 % (0-0) H 02/17/17 07:00 Monocytes % (Manual) 2 % (0-10) 02/17/17 07:00 Myelocytes % 1 % (0-0) H 02/17/17 07:00 Platelet Estimate Normal (NORMAL) 02/17/17 07:00 Hypochromasia (manual) Slight 02/17/17 07:00 Anisocytosis (manual) Slight 02/17/17 07:00 PT 60.4 Seconds (9.8-13.1) H* D 02/24/17 08:15 INR 5.2 (0.9-1.2) H 02/24/17 08:15 APTT 41.5 Seconds (25.6-37.1) H 02/24/17 08:15 Sodium 141 mmol/l (132-148) 02/22/17 07:30 Potassium 3.6 MMOL/L (3.6-5.0) 02/22/17 07:30 Chloride 105 mmol/L (98-107) 02/22/17 07:30 Carbon Dioxide 30 mmol/L (22-30) 02/22/17 07:30 Anion Gap 10 (10-20) 02/22/17 07:30 BUN 34 mg/dl (9-20) H 02/22/17 07:30 Creatinine 0.9 mg/dL (0.8-1.5) 02/22/17 07:30 Est GFR ( Amer) > 60 02/22/17 07:30 Est GFR (Non-Af Amer) > 60 02/22/17 07:30 POC Glucose (mg/dL) 132 mg/dL (65-110) H 02/24/17 06:07 Random Glucose 89 mg/dL (75-110) 02/22/17 07:30 Calcium 8.4 mg/dL (8.4-10.2) 02/22/17 07:30 Total Bilirubin 0.4 mg/dl (0.2-1.3) 02/22/17 07:30 AST 17 U/L (17-59) D 02/22/17 07:30 ALT 41 U/L (21-72) 02/22/17 07:30 Alkaline Phosphatase 84 U/L (38-126) 02/22/17 07:30 Total Protein 5.2 G/DL (6.3-8.2) L 02/22/17 07:30 Albumin 2.9 g/dL (3.5-5.0) L 02/22/17 07:30 Globulin 2.3 gm/dL (2.2-3.9) 02/22/17 07:30 Albumin/Globulin Ratio 1.3 (1.0-2.1) 02/22/17 07:30 Urine Color Yellow (YELLOW) 02/16/17 22:00 Urine Clarity Cloudy (Clear) 02/16/17 22:00 Urine pH 6.0 (5.0-8.0) 02/16/17 22:00 Ur Specific Beatrice 1.014 (1.003-1.030) 02/16/17 22:00 Urine Protein Negative mg/dL (NEGATIVE) 02/16/17 22:00 Urine Glucose (UA) 150 mg/dL (Normal) 02/16/17 22:00 Urine Ketones Negative mg/dL (NEGATIVE) 02/16/17 22:00 Urine Blood Small (NEGATIVE) 02/16/17 22:00 Urine Nitrate Negative (NEGATIVE) 02/16/17 22:00 Urine Bilirubin Negative (NEGATIVE) 02/16/17 22:00 Urine Urobilinogen 0.2-1.0 mg/dL (0.2-1.0) 02/16/17 22:00 Ur Leukocyte Esterase Large Briseida/uL (Negative) 02/16/17 22:00 Urine RBC (Auto) 12 /hpf (0-3) H 02/16/17 22:00 Urine Microscopic WBC 106 /hpf (0-5) H 02/16/17 22:00 Ur Squamous Epith Cells < 1 /hpf (0-5) 02/16/17 22:00 Urine Bacteria Rare (<OCC) 02/16/17 22:00 Urine Yeast (Budding) Few /hpf (NEGATIVE) H 02/16/17 22:00 C. difficile Ag & Toxin Negative (NEGATIVE) 02/20/17 09:57 - Hospital Course Hospital Course: 82 yr old M with PMHx including Atrial Fibrillation, COPD, Systolic CHF, NIDDM, pulmonary fibrosis, Penile cancer, former Etoh abuse (quit 4 yrs ago), former smoker (40 pack years, quit 8 yrs ago) admitted to TCU for deconditioning and IV antibiotics for Pneumonia. Patients symptoms resolved, tolerated PT well. Warfarin held today as INR is 5.2. Patient was discharged stable with instructions to discontinue Amiodarone (Cordarone/Nexterone) and Diltiazem ( Cardizem/Tiazac), Do not take warfarin for 2 days, go for labs (PT/INR) pending results, call Dr. Godfrey office to resume warfarin; Take the rest of your medications as prescribed; Follow up with Dr. Aguirre ; Follow up with pulmonology, Dr. Webster or Dr. Lynne ; Follow up with urology, Dr. Knowles. Hypoglycemia and Warfarin tx precautions reviewed. - Date & Time of H&P Date of H&P: 02/15/17 Time of H&P: 11:47 Discharge Exam - Head Exam Head Exam: ATRAUMATIC, NORMOCEPHALIC - Eye Exam Eye Exam: EOMI, PERRL - ENT Exam ENT Exam: Mucous Membranes Moist - Neck Exam Neck exam: Full Rom - Respiratory Exam Respiratory Exam: Rhonchi (mild in bilateral lower lobes), NORMAL BREATHING PATTERN - Cardiovascular Exam Cardiovascular Exam: REGULAR RHYTHM, +S1, +S2 - GI/Abdominal Exam GI & Abdominal Exam: Normal Bowel Sounds. absent: Tenderness - Extremities Exam Extremities exam: full ROM - Back Exam Back exam: absent: CVA tenderness (L), CVA tenderness (R) - Neurological Exam Neurological exam: Alert, CN II-XII Intact, Normal Gait, Oriented x3 - Psychiatric Exam Psychiatric exam: Normal Affect, Normal Mood - Skin Skin Exam: Dry, Intact, Warm Discharge Plan - Discharge Medications Prescriptions: Digoxin [Lanoxin] 0.25 mg PO DAILY #30 tab Furosemide [Lasix] 40 mg PO DAILY #30 tab Gabapentin [Neurontin] 100 mg PO HS #30 cap Insulin Detemir [Levemir] 14 units SC HS #1 vial Lactobacillus Acidophilus [Bacid Acidophilus] 1 cap PO BID #60 cap Lisinopril [Zestril] 5 mg PO DAILY #30 tab Metoprolol Tartrate [Lopressor] 12.5 mg PO Q12 #60 tab predniSONE [predniSONE Tab] 20 mg PO DAILY #3 tab Tamsulosin [Flomax] 0.4 mg PO DAILY #30 cap - Follow Up Plan Condition: GOOD Disposition: HOME/ ROUTINE Instructions: Warfarin (By mouth), Insulin Detemir (By injection), Insulin Lispro (By injection), Heart Failure (DC), Atrial Fibrillation (DC), Diabetic Hypoglycemia (DC), Diabetes Mellitus Type 2 in Adults (DC), Acute Bronchitis ( GEN), COPD (Chronic Obstructive Pulmonary Disease) (DC), Fall Prevention (DC), Dyspnea Scale and Exercise (DC) Additional Instructions: -Discontinue Amiodarone (Cordarone/Nexterone) and Diltiazem (Cardizem/Tiazac) -Do not take warfarin for 2 days, go for labs (PT/INR) pending results, call Dr. Godfrey office and resume warfarin -Take the rest of your medications as prescribed -Follow up with Dr. Aguirre -Follow up with pulmonology, Dr. Webster or Dr. Lynne -Follow up with urology, Dr. Knowles Referrals: Juanita Knowles MD [Medical Doctor] - Woody Godfrey MD [Staff Provider] - Chris Aguirre MD [Primary Care Provider] - Miki Lynne MD [Staff Provider] - Victor Hugo Painting MD [Medical Doctor] - Sina Webster MD [Staff Provider] - <Luis Garcia - Last Filed: 02/25/17 06:48> Provider - Provider Date of Admission: 02/14/17 16:49 Attending physician: Chris Aguirre MD Primary care physician: Chris Aguirre MD Diagnosis - Discharge Diagnosis (1) Unsteady gait Status: Acute (2) Acute bronchitis with chronic obstructive pulmonary disease (COPD) Status: Acute (3) Atrial flutter Status: Acute Priority: Medium (4) COPD exacerbation Status: Resolved Priority: Medium (5) Uncontrolled diabetes mellitus Status: Chronic Priority: Medium (6) CHF (congestive heart failure), NYHA class IV Status: Chronic Priority: High (7) Chronic a-fib Status: Chronic Priority: Medium (8) Anemia of chronic disease Status: Chronic Priority: Low Hospital Course - Lab Results Lab Results: Micro Results 02/20/17 12:13 Sputum Gram Stain - Final 02/20/17 12:13 Sputum Sputum Culture - Final Stenotrophomonas Maltophilia 02/16/17 07:22 Urine,Clean Catch Urine Culture - Final No Growth (<1,000 CFU/ML) Most Recent Lab Values WBC 15.7 K/uL (4.8-10.8) H 02/23/17 06:00 RBC 4.03 Mil/uL (4.40-5.90) L 02/23/17 06:00 Hgb 11.0 g/dL (12.0-18.0) L 02/23/17 06:00 Hct 34.7 % (35.0-51.0) L 02/23/17 06:00 MCV 86.1 fl (80.0-94.0) 02/23/17 06:00 MCH 27.3 pg (27.0-31.0) 02/23/17 06:00 MCHC 31.7 g/dL (33.0-37.0) L 02/23/17 06:00 RDW 18.1 % (11.5-14.5) H 02/23/17 06:00 Plt Count 267 K/uL (130-400) 02/23/17 06:00 MPV 7.9 fl (7.2-11.7) 02/17/17 07:00 Neut % (Auto) 94.4 % (50.0-75.0) H 02/17/17 07:00 Lymph % (Auto) 2.1 % (20.0-40.0) L 02/17/17 07:00 Caroline % (Auto) 3.4 % (0.0-10.0) 02/17/17 07:00 Eos % (Auto) 0.0 % (0.0-4.0) 02/17/17 07:00 Baso % (Auto) 0.1 % (0.0-2.0) 02/17/17 07:00 Neut # 12.0 K/uL (1.8-7.0) H 02/17/17 07:00 Lymph # 0.3 K/uL (1.0-4.3) L 02/17/17 07:00 Caroline # 0.4 K/uL (0.0-0.8) 02/17/17 07:00 Eos # 0.0 K/uL (0.0-0.7) 02/17/17 07:00 Baso # 0.0 K/uL (0.0-0.2) 02/17/17 07:00 Neutrophils % (Manual) 95 % (42-75) H 02/17/17 07:00 Lymphocytes % (Manual) 1 % (20-50) L 02/17/17 07:00 Reactive Lymphs % 1 % (0-0) H 02/17/17 07:00 Monocytes % (Manual) 2 % (0-10) 02/17/17 07:00 Myelocytes % 1 % (0-0) H 02/17/17 07:00 Platelet Estimate Normal (NORMAL) 02/17/17 07:00 Hypochromasia (manual) Slight 02/17/17 07:00 Anisocytosis (manual) Slight 02/17/17 07:00 PT 60.4 Seconds (9.8-13.1) H* D 02/24/17 08:15 INR 5.2 (0.9-1.2) H 02/24/17 08:15 APTT 41.5 Seconds (25.6-37.1) H 02/24/17 08:15 Sodium 141 mmol/l (132-148) 02/22/17 07:30 Potassium 3.6 MMOL/L (3.6-5.0) 02/22/17 07:30 Chloride 105 mmol/L (98-107) 02/22/17 07:30 Carbon Dioxide 30 mmol/L (22-30) 02/22/17 07:30 Anion Gap 10 (10-20) 02/22/17 07:30 BUN 34 mg/dl (9-20) H 02/22/17 07:30 Creatinine 0.9 mg/dL (0.8-1.5) 02/22/17 07:30 Est GFR ( Amer) > 60 02/22/17 07:30 Est GFR (Non-Af Amer) > 60 02/22/17 07:30 POC Glucose (mg/dL) 411 mg/dL (65-110) H* 02/24/17 16:06 Random Glucose 89 mg/dL (75-110) 02/22/17 07:30 Calcium 8.4 mg/dL (8.4-10.2) 02/22/17 07:30 Total Bilirubin 0.4 mg/dl (0.2-1.3) 02/22/17 07:30 AST 17 U/L (17-59) D 02/22/17 07:30 ALT 41 U/L (21-72) 02/22/17 07:30 Alkaline Phosphatase 84 U/L (38-126) 02/22/17 07:30 Total Protein 5.2 G/DL (6.3-8.2) L 02/22/17 07:30 Albumin 2.9 g/dL (3.5-5.0) L 02/22/17 07:30 Globulin 2.3 gm/dL (2.2-3.9) 02/22/17 07:30 Albumin/Globulin Ratio 1.3 (1.0-2.1) 02/22/17 07:30 Urine Color Yellow (YELLOW) 02/16/17 22:00 Urine Clarity Cloudy (Clear) 02/16/17 22:00 Urine pH 6.0 (5.0-8.0) 02/16/17 22:00 Ur Specific Beatrice 1.014 (1.003-1.030) 02/16/17 22:00 Urine Protein Negative mg/dL (NEGATIVE) 02/16/17 22:00 Urine Glucose (UA) 150 mg/dL (Normal) 02/16/17 22:00 Urine Ketones Negative mg/dL (NEGATIVE) 02/16/17 22:00 Urine Blood Small (NEGATIVE) 02/16/17 22:00 Urine Nitrate Negative (NEGATIVE) 02/16/17 22:00 Urine Bilirubin Negative (NEGATIVE) 02/16/17 22:00 Urine Urobilinogen 0.2-1.0 mg/dL (0.2-1.0) 02/16/17 22:00 Ur Leukocyte Esterase Large Briseida/uL (Negative) 02/16/17 22:00 Urine RBC (Auto) 12 /hpf (0-3) H 02/16/17 22:00 Urine Microscopic WBC 106 /hpf (0-5) H 02/16/17 22:00 Ur Squamous Epith Cells < 1 /hpf (0-5) 02/16/17 22:00 Urine Bacteria Rare (<OCC) 02/16/17 22:00 Urine Yeast (Budding) Few /hpf (NEGATIVE) H 02/16/17 22:00 C. difficile Ag & Toxin Negative (NEGATIVE) 02/20/17 09:57 Attending/Attestation - Attestation I have personally seen and examined this patient.: Yes I have fully participated in the care of the patient.: Yes I have reviewed all pertinent clinical information, including history, physical exam and plan: Yes
--- NOTE | 2017-02-24 10:58 | CP.PCM.PN ---
Subjective - Date & Time of Evaluation Date of Evaluation: 02/24/17 Time of Evaluation: 10:45 - Subjective Subjective: Effort tolerence much improved Vital signs stable Meds are tolerated well INR >4 today, accordinly pt to stay off Warfarin for 2 days, then to resume and INR 3 days after the resumption Objective - Vital Signs/Intake and Output Vital Signs (last 24 hours): Temp Pulse Resp BP Pulse Ox 96.3 F L 60 20 99/57 L 99 02/24/17 08:28 02/24/17 08:28 02/24/17 08:28 02/24/17 08:28 02/24/17 08:28 - Medications Medications: Current Medications Bacitracin (Bacitracin) 1 ea TOP TID [facility] Last Admin: 02/24/17 08:23 Dose: 1 ea Dextrose (Dextrose 50% Inj) 0 ml IV STAT PRN; Protocol PRN Reason: Hyglycemia Protocol Dextrose (Glutose 15) 0 gm PO ONCE PRN; Protocol PRN Reason: Hypoglycemia Protocol Digoxin (Lanoxin) 0.25 mg PO DAILY [facility] Last Admin: 02/24/17 08:25 Dose: 0.25 mg Finasteride (Proscar) 5 mg PO DAILY [facility] Last Admin: 02/24/17 08:27 Dose: 5 mg Fluconazole (Diflucan) 200 mg PO DAILY [facility] Last Admin: 02/24/17 08:24 Dose: 200 mg Furosemide (Lasix) 40 mg PO DAILY [facility] Last Admin: 02/24/17 08:26 Dose: 40 mg Gabapentin (Neurontin) 100 mg PO HS [facility] Last Admin: 02/23/17 21:31 Dose: 100 mg Glucagon (Glucagen Diagnostic Kit) 0 mg IM STAT PRN; Protocol PRN Reason: Hypoglycemia Protocol Guaifenesin/Dextromethorphan (Robitussin Dm) 10 ml PO Q6 PRN PRN Reason: Cough Last Admin: 02/23/17 17:28 Dose: 10 ml Insulin Detemir (Levemir) 14 units SC HS [facility] Last Admin: 02/23/17 21:30 Dose: 14 u Insulin Human Lispro (Humalog) 5 units SC ACTID [facility] Last Admin: 02/24/17 08:25 Dose: 5 u Insulin Human Regular (Humulin R) 0 units SC ACHS AKUA PRN Reason: Protocol Last Admin: 02/24/17 06:54 Dose: Not Given Lactobacillus Acidophilus (Bacid Acidophilus) 1 cap PO BID [facility] Last Admin: 02/24/17 08:23 Dose: 1 cap Levalbuterol HCl (Xopenex) 1.25 mg INH RQ8 [facility] Last Admin: 02/24/17 07:28 Dose: 1.25 mg Lisinopril (Zestril) 5 mg PO DAILY [facility] Last Admin: 02/24/17 08:27 Dose: 5 mg Metformin HCl (Glucophage) 500 mg PO BID [facility] Last Admin: 02/24/17 08:25 Dose: 500 mg Metoprolol Tartrate (Lopressor) 12.5 mg PO Q12 [facility] Last Admin: 02/24/17 08:26 Dose: 12.5 mg Montelukast Sodium (Singulair) 10 mg PO DAILY@2100 [facility] Last Admin: 02/23/17 21:31 Dose: 10 mg Neomycin/Polymyxin/Hydrocortisone (Cortisporin Otic Soln) 4 drop TID [facility] Last Admin: 02/24/17 08:24 Dose: 4 drop Pantoprazole Sodium (Protonix Ec Tab) 40 mg PO DAILY [facility] Last Admin: 02/24/17 08:27 Dose: 40 mg Prednisone (Prednisone Tab) 30 mg PO DAILY [facility] Last Admin: 02/24/17 08:27 Dose: 30 mg Spironolactone (Aldactone) 25 mg PO DAILY [facility] Last Admin: 02/24/17 08:23 Dose: 25 mg Tamsulosin HCl (Flomax) 0.4 mg PO DAILY [facility] Last Admin: 02/24/17 08:25 Dose: 0.4 mg Tiotropium [place] (Spiriva) 18 mcg INH DAILY [facility] Last Admin: 02/24/17 08:23 Dose: 18 mcg - Labs Labs: 02/23/17 06:00 02/22/17 07:30 PT 60.4 Seconds (9.8-13.1) H* D 02/24/17 08:15 INR 5.2 (0.9-1.2) H 02/24/17 08:15 APTT 41.5 Seconds (25.6-37.1) H 02/24/17 08:15
== END 2017-02-24 16:13 | disposition home or self-care (01) | DRG 190 ==
LOC: H.TCU 16:49
PROVIDERS: ADMIT Family Medicine; ATTEND Family Medicine
PROC: F08Z4ZZ Home Management Treatment (ICD-10-PCS; principal; 2017-02-14)
PROC: F07Z9FZ Gait Training/Functional Ambulation Treatment using Assistive, Adaptive, Supportive or Protective Equipment (ICD-10-PCS; 2017-02-14)
PROC: F07L6FZ Therapeutic Exercise Treatment of Musculoskeletal System - Lower Back / Lower Extremity using Assistive, Adaptive, Supportive or Protective Equipment (ICD-10-PCS; 2017-02-14)
PROC: 5A0955Z Assistance with Respiratory Ventilation, Greater than 96 Consecutive Hours (ICD-10-PCS; 2017-02-14)
DX: J44.0 Chronic obstructive pulmonary disease with (acute) lower respiratory infection (principal); J15.1 Pneumonia due to Pseudomonas; I48.92 Unspecified atrial flutter; I11.0 Hypertensive heart disease with heart failure; E11.65 Type 2 diabetes mellitus with hyperglycemia; J84.10 Pulmonary fibrosis, unspecified; I50.22 Chronic systolic (congestive) heart failure; N39.0 Urinary tract infection, site not specified; I48.2 Chronic atrial fibrillation; J44.1 Chronic obstructive pulmonary disease with (acute) exacerbation; J20.9 Acute bronchitis, unspecified; D63.8 Anemia in other chronic diseases classified elsewhere; I25.10 Atherosclerotic heart disease of native coronary artery without angina pectoris; I25.2 Old myocardial infarction; Z85.49 Personal history of malignant neoplasm of other male genital organs; N40.1 Benign prostatic hyperplasia with lower urinary tract symptoms; R35.0 Frequency of micturition; R39.12 Poor urinary stream; Z87.891 Personal history of nicotine dependence; R26.81 Unsteadiness on feet